=== PATIENT | male | born 1940 | race Caucasian/White ===

== ENCOUNTER → 2016-09-21 | Outpatient (CLI) | payer MEDICARE ==
[~2016-09-21] MED LIST: ACET500C PO; ALEV220C2 PO; AMLO5TAB2 PO; ARIC10TA PO; ARIC5TAB PO; ASPI1TAB PO; ASPI325T PO; ASPI32ECTA PO; ASPI81TA85 PO; ASPI81TAEC PO; ATEN25TA PO; ATOR1TAB18 PO; CLOP75TA2 PO; DULO30CA PO; FENT1DIS14 TD; FENT50PA TD; FERR325T3 PO; FISH100049 PO; FLOM5CAP PO; GLYB1TAB29 PO; HYDR1TAB97 PO; IMOD2TAB14 PO; INSUDET SC; INSUH10VL SC; INSUHUMDS SC; INSULANT SC; INSUNSD SC; ISOS30TA4 PO; ISOS60TA2 PO; LANTINJ4 SC; LOMO2.5T PO; METO25TAB PO; MULTCAP PO; MYRB50TA PO; NADO20TA PO; NEUR300C PO; NEUR600T PO; NITR4TASL SL; NITROGLYCERIN SL; NORC5TAB PO; OMEP20CA3 PO; OXYB10TA PO; PLAV75TA PO; PRIL20CA PO; PROCAER4 PR; PROT1TAB2 PO; RANO5TAB PO; SENO8.6T2 PO; SIMV40TA2 PO; SUCR1TA PO; TAMS0.4C2 PO; TRAZ25TA PO; TRAZ50TA4 PO; TYLE325T5 PO; TYLE500T78 PO; ULTR37.52 PO; VITMTA PO; ZANA4TAB PO; [UNRECOGNIZED DRUG - OTHER] SC
[2016-09-21 17:54] LABS: BASO # 0.1 K/mm3 (0.0-0.2); BASO % 1.3 % (0.0-1.0); EOS # 0.2 K/mm3 (0.0-0.50); EOS % 2.4 % (0.0-3.0); LARGE UNSTAINED CELL # 0.2 K/mm3 (0.0-0.4); LARGE UNSTAINED CELL % 2.5 % (0.0-4.0); LYMPH # 1.4 K/mm3 (1.5-4.5); LYMPH % 15.1 % (24.0-44.0); MEAN CORPUSCULAR HEMOGLOBIN 32.2 pg (27.0-33.0); MEAN CORPUSCULAR HGB CONC 33.5 g/dl (32.0-36.5); MEAN CORPUSCULAR VOLUME 96.3 fl (80.0-96.0); MONO # 0.7 K/mm3 (0.0-0.8); MONO % 8.5 % (0.0-5.0); NEUTROPHILS # 5.7 K/mm3 (1.8-7.7); NEUTROPHILS % 70.3 % (36.0-66.0); PLATELET COUNT, AUTOMATED 148 k/mm3 (150-450); RED CELL DISTRIBUTION WIDTH 14.7 % (11.5-14.5); WHITE BLOOD COUNT 8.1 K/mm3 (4.0-10.0)
== END ==
LOC: M WUC 12:54
PROVIDERS: ATTEND Nurse Practitioner Family
DX: D50.0 Iron deficiency anemia secondary to blood loss (chronic) (principal)

== ENCOUNTER → 2016-10-14 | Outpatient (CLI) | payer MEDICARE ==
[~2016-10-14] MED LIST changes: +HYDR-3713 PO; -HYDR1TAB97 PO; -IMOD2TAB14 PO; +IMOD2TAB16 PO; -PLAV75TA PO; +PLAV75TA38 PO; -PRIL20CA PO; +PRIL20CA9 PO
[2016-10-14 13:11] LABS: BASO % 0.5 % (0.0-1.0); EOS # 0.2 K/mm3 (0.0-0.50); EOS % 2.5 % (0.0-3.0); LARGE UNSTAINED CELL # 0.1 K/mm3 (0.0-0.4); LARGE UNSTAINED CELL % 1.6 % (0.0-4.0); LYMPH # 0.9 K/mm3 (1.5-4.5); LYMPH % 13.9 % (24.0-44.0); MEAN CORPUSCULAR HGB CONC 32.8 g/dl (32.0-36.5); MEAN CORPUSCULAR VOLUME 97.6 fl (80.0-96.0); MONO # 0.4 K/mm3 (0.0-0.8); MONO % 5.3 % (0.0-5.0); NEUTROPHILS # 5.1 K/mm3 (1.8-7.7); NEUTROPHILS % 76.1 % (36.0-66.0); PLATELET COUNT, AUTOMATED 123 k/mm3 (150-450); RED CELL DISTRIBUTION WIDTH 14.1 % (11.5-14.5); WHITE BLOOD COUNT 6.6 K/mm3 (4.0-10.0)
[2016-10-14 13:31] LABS: ALBUMIN 3.3 GM/DL (3.2-5.2); ALBUMIN/GLOBULIN RATIO 0.94 (1.00-1.93); BILIRUBIN,TOTAL 0.6 MG/DL (0.2-1.0); CALCIUM LEVEL 8.7 MG/DL (8.8-10.2); CREATININE FOR GFR 1.68 MG/DL (0.70-1.30); GLOMERULAR FILTRATION RATE 42.6 (>42); POTASSIUM SERUM 4.3 MEQ/L (3.5-5.1); TOTAL PROTEIN 6.8 GM/DL (6.4-8.2)
== END ==
LOC: M WUC 08:50
PROVIDERS: ATTEND Nurse Practitioner Family
DX: D50.0 Iron deficiency anemia secondary to blood loss (chronic) (principal); E11.65 Type 2 diabetes mellitus with hyperglycemia

== ENCOUNTER → 2016-10-21 | Outpatient (CLI) | payer MEDICARE ==
--- NOTE | 2016-10-21 10:03 | REP ---
Abdominal aortic ultrasound: The proximal abdominal aorta measures 2.2 x 2.5 cm. The remainder of the abdominal aorta could not be visualized because of patient body habitus and obscuration by bowel gas. Impression: Suboptimal study. Signed by Edu Cabrera MD 10/21/2016 09:55 A
== END ==
LOC: M RAD 08:47
PROVIDERS: ATTEND Nurse Practitioner Family
DX: Z13.6 Encounter for screening for cardiovascular disorders (principal)

== ENCOUNTER → 2016-11-20 | Outpatient (REF) | payer MEDICARE ==
[2016-11-20 15:12] LABS: CREATININE FOR GFR 1.89 MG/DL (0.70-1.30); GLOMERULAR FILTRATION RATE 37.2 (>42)
== END ==
LOC: M LABDRAW1 13:56
PROVIDERS: ATTEND Physical Medicine & Rehabilitation
DX: M51.26 Other intervertebral disc displacement, lumbar region (principal)

== ENCOUNTER → 2016-11-24 | Outpatient (CLI) | payer MEDICARE ==
[~2016-11-24] MED LIST changes: +NORC1TAB4 PO; -NORC5TAB PO; +NOVOINJ3 SC
[2016-11-24 14:16] LABS: BASO % 0.5 % (0.0-1.0); EOS # 0.3 K/mm3 (0.0-0.50); EOS % 4.1 % (0.0-3.0); LARGE UNSTAINED CELL # 0.1 K/mm3 (0.0-0.4); LARGE UNSTAINED CELL % 1.9 % (0.0-4.0); LYMPH # 0.9 K/mm3 (1.5-4.5); LYMPH % 13.2 % (24.0-44.0); MEAN CORPUSCULAR HEMOGLOBIN 30.8 pg (27.0-33.0); MEAN CORPUSCULAR HGB CONC 31.3 g/dl (32.0-36.5); MEAN CORPUSCULAR VOLUME 98.4 fl (80.0-96.0); MONO # 0.4 K/mm3 (0.0-0.8); NEUTROPHILS # 5.1 K/mm3 (1.8-7.7); NEUTROPHILS % 74.2 % (36.0-66.0); PLATELET COUNT, AUTOMATED 161 k/mm3 (150-450); RED CELL DISTRIBUTION WIDTH 15.4 % (11.5-14.5); WHITE BLOOD COUNT 6.9 K/mm3 (4.0-10.0)
[2016-11-24 14:40] LABS: ALBUMIN 3.4 GM/DL (3.2-5.2); ALBUMIN/GLOBULIN RATIO 0.97 (1.00-1.93); BILIRUBIN,TOTAL 0.8 MG/DL (0.2-1.0); CALCIUM LEVEL 8.6 MG/DL (8.8-10.2); CREATININE FOR GFR 1.8 MG/DL (0.70-1.30); GLOMERULAR FILTRATION RATE 39.4 (>42); POTASSIUM SERUM 4.8 MEQ/L (3.5-5.1); TOTAL PROTEIN 6.9 GM/DL (6.4-8.2)
--- NOTE | 2016-11-24 15:09 | REP ---
CHEST X-RAY PA AND LATERAL: 11/24/2016. Clinical history: Cough and dyspnea. Comparison: 06/24/2016, 04/26/2016, 03/09/2016. Findings: Sternotomy wires and clips from prior CABG are again noted. Some cardiomegaly with left ventricular configuration. Some mild left atrial enlargement is noted. The aorta is mildly calcified at the arch and ectatic without aneurysm. The upper most of the sternal wires are fragmented as before. There are surgical clips in the neck base bilaterally, unchanged. The lung locke are well inflated. The CP angles are sharply defined without evidence of an effusion. There is no lateral pleural thickening or apical scarring. Underlying interstitial fibrotic changes are noted. There is no vascular redistribution or pulmonary edema. Airway intact. Bony thorax without compression deformity. There is no free air under the diaphragm. There are upper abdominal surgical clips. Impression: 1. There is mild cardiomegaly with left atrial ventricular enlargement without pulmonary edema, pleural effusion or acute infiltrate. 2. Mild underlying interstitial fibrotic change. 3. Sternotomy wires with clips from CABG and some mild left atrial enlargement suspected. Stable chest. Signed by Usama Vasquez MD 11/24/2016 05:15 P
== END ==
LOC: M LAB 13:32
PROVIDERS: ATTEND Nurse Practitioner Family
DX: R05 Cough (principal); R06.02 Shortness of breath; I51.7 Cardiomegaly; R00.8 Other abnormalities of heart beat; Z95.1 Presence of aortocoronary bypass graft
CPT/HCPCS: 36415; 71020; 80053; 85025; 94640; G0463

== ENCOUNTER → 2016-12-29 | Outpatient (REF) | payer MEDICARE ==
[~2016-12-29] MED LIST changes: +CIPR-250 PO; +CIPR500T89 PO
== END ==
LOC: M SMT 15:19
PROVIDERS: ATTEND Urology
DX: R31.0 Gross hematuria (principal)
CPT/HCPCS: 81001; 87086; G0463

== ENCOUNTER 2016-12-30 14:06 | Emergency (ER) | payer MEDICARE ==
[~2016-12-30] VITALS: Ht 172.7 cm; Wt 95.3 kg
[~2016-12-30 14:06] MED LIST changes: -CIPR-250 PO; -CIPR500T89 PO
--- NOTE | 2016-12-30 16:03 | REP ---
CHEST, TWO VIEWS: HISTORY: Abdominal pain. COMPARISON: 11/24/2016 There has been no significant change from the prior exam. There is mild cardiomegaly. Note is again made of previous median sternotomy. There are mild fibrotic changes, status quo. No acute patchy parenchymal opacities or pleural effusions have developed. The pleural angles are sharp. The osseous structures are stable and intact. Multiple fractured sternotomy wires noted, status quo. IMPRESSION: Stable appearing chronic changes without plain radiographic evidence of acute cardiopulmonary disease. Signed by Tony Ambrosio DO 12/30/2016 04:06 P
[2016-12-30 16:05] LABS: BASO % 0.6 % (0.0-1.0); EOS # 0.2 K/mm3 (0.0-0.50); LARGE UNSTAINED CELL # 0.1 K/mm3 (0.0-0.4); LARGE UNSTAINED CELL % 1.8 % (0.0-4.0); LYMPH # 0.9 K/mm3 (1.5-4.5); LYMPH % 14.6 % (24.0-44.0); MEAN CORPUSCULAR HGB CONC 31.9 g/dl (32.0-36.5); MONO # 0.4 K/mm3 (0.0-0.8); MONO % 6.6 % (0.0-5.0); NEUTROPHILS # 4.1 K/mm3 (1.8-7.7); NEUTROPHILS % 73.4 % (36.0-66.0); PLATELET COUNT, AUTOMATED 140 k/mm3 (150-450); RED CELL DISTRIBUTION WIDTH 15.3 % (11.5-14.5); WHITE BLOOD COUNT 5.5 K/mm3 (4.0-10.0)
[2016-12-30 16:31] LABS: ALBUMIN 3.1 GM/DL (3.2-5.2); ALBUMIN/GLOBULIN RATIO 0.84 (1.00-1.93); ALKALINE PHOSPHATASE 101 U/L (45-117); ALT/SGPT 41 U/L (12-78); ANION GAP 9 MEQ/L (8-16); AST/SGOT 29 U/L (15-37); BILIRUBIN,DIRECT 0.2 MG/DL (0.0-0.2); BILIRUBIN,TOTAL 0.6 MG/DL (0.2-1.0); BLOOD UREA NITROGEN 25 MG/DL (7-18); CALCIUM LEVEL 8.5 MG/DL (8.8-10.2); CARBON DIOXIDE LEVEL 25 MEQ/L (21-32); CHLORIDE LEVEL 110 MEQ/L (98-107); CREATININE FOR GFR 1.82 MG/DL (0.70-1.30); GLOMERULAR FILTRATION RATE 38.9 (>42); GLUCOSE, FASTING 90 MG/DL (83-110); POTASSIUM SERUM 4.9 MEQ/L (3.5-5.1); SODIUM LEVEL 144 MEQ/L (136-145); TOTAL PROTEIN 6.8 GM/DL (6.4-8.2)
[2016-12-30] MEDS ORDERED: CIPR500T89 PO (19:20)
[2016-12-30] MEDS ORDERED: CIPR-250 PO (19:23)
[2016-12-30 19:39] VITALS: BP 124/59
--- NOTE | 2016-12-31 08:39 | ECGEPIP ---
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
== END 2016-12-30 19:41 | disposition home or self-care (01) ==
LOC: EDBD 14:06 → M ED 15:11
DX: D64.9 Anemia, unspecified (principal); E11.65 Type 2 diabetes mellitus with hyperglycemia; N39.0 Urinary tract infection, site not specified; I25.10 Atherosclerotic heart disease of native coronary artery without angina pectoris; I50.9 Heart failure, unspecified; I12.9 Hypertensive chronic kidney disease with stage 1 through stage 4 chronic kidney disease, or unspecified chronic kidney disease; E11.29 Type 2 diabetes mellitus with other diabetic kidney complication; N18.3 Chronic kidney disease, stage 3 (moderate); I85.00 Esophageal varices without bleeding; G47.30 Sleep apnea, unspecified; Z85.46 Personal history of malignant neoplasm of prostate; Z95.5 Presence of coronary angioplasty implant and graft; Z79.82 Long term (current) use of aspirin; Z79.899 Other long term (current) drug therapy; Z79.4 Long term (current) use of insulin

== ENCOUNTER → 2017-01-08 | Outpatient (CLI) | payer MEDICARE ==
[~2017-01-08] VITALS: Ht 172.7 cm; Wt 92.1 kg
[~2017-01-08] MED LIST changes: +CIPR-250 PO; +CIPR500T89 PO; +LIDOCAINE 2% INJ 100 MG/5 ML SDV (FOR ANES.) As Ordered ONE; +NS 1,000 ML IV SCH; +PROPOFOL 200 MG/20 ML VIAL As Ordered ONE; +fentaNYL 100 MCG/2 ML INJECTION (J3010) As Ordered ONE
--- NOTE | 2017-01-08 08:24 | ROOR ---
Patient Name: Delfino Leger Procedure Date: 01/08/2017 7:59 AM Date of : 1940 Age: 77 Room: [facility] Gender: Male Note Status: Finalized Procedure: Upper GI endoscopy Indications: Iron deficiency anemia secondary to chronic blood loss, For therapy of portal hypertensive gastropathy Providers: Hugh ZAMORA MD Referring MD: RAMBO RAMIREZ MD Requesting Provider: Medicines: Monitored Anesthesia Care Complications: No immediate complications. Procedure: Pre-Anesthesia Assessment: - The heart rate, respiratory rate, oxygen saturations, blood pressure, adequacy of pulmonary ventilation, and response to care were monitored throughout the procedure. The Endoscope was introduced through the mouth, and advanced to the second part of duodenum. The upper GI endoscopy was accomplished without difficulty. The patient tolerated the procedure well. Findings: Grade I varices were found in the lower third of the esophagus. Small varices-no endoscopic therapy indicated The exam of the esophagus was otherwise normal. Moderate portal hypertensive gastropathy was found in the gastric antrum. Coagulation for bleeding prevention using argon beam at 0.8 liters/minute and 35 rothman was successful. The exam of the stomach was otherwise normal. The examined duodenum was normal. Impression: - Grade I esophageal varices. (Small varices-no endoscopic therapy indicated) - Hemorrhagic, nodular portal hypertensive gastropathy (source for chronic blood loss). Treated with argon beam coagulation. - Normal examined duodenum. - No specimens collected. Recommendation: - Observe patient's clinical course. - Portal hypertensive gastropathy in his case is resistant to therapy. To lower portal pressure a nonselective Betablocker could be reconsidered (previously intolerant). He is probably not a TIPSS candidate based on renal function.--I will review. At this time, will continue to do routine surveillance/therapy with APC. - Repeat upper endoscopy in 1 month for retreatment. Hugh Zamora MD Hugh ZAMORA MD 01/08/2017 8:24:47 AM This report has been signed electronically. Number of Addenda: 0 Note Initiated On: 01/08/2017 7:59 AM Estimated Blood Loss: Estimated blood loss: none.
[2017-01-08 08:40] VITALS: BP 155/59
== END | disposition home or self-care (01) ==
LOC: M OPP 06:48
PROVIDERS: ATTEND Internal Medicine Gastroenterology
DX: D50.0 Iron deficiency anemia secondary to blood loss (chronic) (principal); I85.00 Esophageal varices without bleeding; K76.6 Portal hypertension; K31.89 Other diseases of stomach and duodenum; I25.10 Atherosclerotic heart disease of native coronary artery without angina pectoris; I25.2 Old myocardial infarction; I12.9 Hypertensive chronic kidney disease with stage 1 through stage 4 chronic kidney disease, or unspecified chronic kidney disease; E78.5 Hyperlipidemia, unspecified; E11.9 Type 2 diabetes mellitus without complications; K57.92 Diverticulitis of intestine, part unspecified, without perforation or abscess without bleeding; Z87.19 Personal history of other diseases of the digestive system; K44.9 Diaphragmatic hernia without obstruction or gangrene; K74.60 Unspecified cirrhosis of liver; R12 Heartburn; M48.00 Spinal stenosis, site unspecified; F03.90 Unspecified dementia, unspecified severity, without behavioral disturbance, psychotic disturbance, mood disturbance, and anxiety; G62.9 Polyneuropathy, unspecified; I63.9 Cerebral infarction, unspecified; Z86.73 Personal history of transient ischemic attack (TIA), and cerebral infarction without residual deficits; Z92.3 Personal history of irradiation; G47.30 Sleep apnea, unspecified; N18.9 Chronic kidney disease, unspecified; M51.9 Unspecified thoracic, thoracolumbar and lumbosacral intervertebral disc disorder; R06.02 Shortness of breath; Z85.46 Personal history of malignant neoplasm of prostate; Z87.891 Personal history of nicotine dependence; Z95.5 Presence of coronary angioplasty implant and graft; Z88.8 Allergy status to other drugs, medicaments and biological substances; Z79.82 Long term (current) use of aspirin; Z79.4 Long term (current) use of insulin; Z79.899 Other long term (current) drug therapy
CPT/HCPCS: 43255; 99156; J3010

== ENCOUNTER → 2017-02-10 | Outpatient (REF) | payer MEDICARE ==
[~2017-02-10] MED LIST changes: +ACET-683 PO; -ARIC10TA PO; +ARIC1TAB PO; +ARIC1TAB2 PO; -ARIC5TAB PO; +ASPI325T24 PO; -ASPI32ECTA PO; -ATOR1TAB18 PO; +ATOR80TA59 PO; +CIPR-249 PO; -CIPR500T89 PO; +GABA-283 PO; -LIDOCAINE 2% INJ 100 MG/5 ML SDV (FOR ANES.) As Ordered ONE; -NS 1,000 ML IV SCH; +PLAV1TAB2 PO; -PLAV75TA38 PO; -PROPOFOL 200 MG/20 ML VIAL As Ordered ONE; -SENO8.6T2 PO; +SENO8.6T5 PO; +TOUJ1.2I SC; +TRAZ50TA11 PO; -TRAZ50TA4 PO; -ULTR37.52 PO; +ULTR37.54 PO; -fentaNYL 100 MCG/2 ML INJECTION (J3010) As Ordered ONE
[2017-02-10 16:04] LABS: ALBUMIN 3.2 GM/DL (3.2-5.2); ALBUMIN/GLOBULIN RATIO 0.89 (1.00-1.93); BILIRUBIN,TOTAL 0.6 MG/DL (0.2-1.0); CALCIUM LEVEL 8.2 MG/DL (8.8-10.2); CREATININE FOR GFR 1.91 MG/DL (0.70-1.30); GLOMERULAR FILTRATION RATE 36.7 (>42); POTASSIUM SERUM 4.6 MEQ/L (3.5-5.1); TOTAL PROTEIN 6.8 GM/DL (6.4-8.2)
[2017-02-10 16:08] LABS: BASO % 0.7 % (0.0-1.0); EOS # 0.1 K/mm3 (0.0-0.50); EOS % 2.3 % (0.0-3.0); LARGE UNSTAINED CELL # 0.1 K/mm3 (0.0-0.4); LARGE UNSTAINED CELL % 1.7 % (0.0-4.0); LYMPH # 0.9 K/mm3 (1.5-4.5); LYMPH % 16.4 % (24.0-44.0); MEAN CORPUSCULAR HEMOGLOBIN 30.9 pg (27.0-33.0); MEAN CORPUSCULAR HGB CONC 32.2 g/dl (32.0-36.5); MEAN CORPUSCULAR VOLUME 96.1 fl (80.0-96.0); MONO # 0.4 K/mm3 (0.0-0.8); MONO % 7.7 % (0.0-5.0); NEUTROPHILS # 3.3 K/mm3 (1.8-7.7); NEUTROPHILS % 71.2 % (36.0-66.0); PLATELET COUNT, AUTOMATED 146 k/mm3 (150-450); RED CELL DISTRIBUTION WIDTH 15.7 % (11.5-14.5); WHITE BLOOD COUNT 4.7 K/mm3 (4.0-10.0)
== END ==
LOC: M SFHCPLAZ 14:03
PROVIDERS: ATTEND Nurse Practitioner Family
DX: D50.0 Iron deficiency anemia secondary to blood loss (chronic) (principal); E11.21 Type 2 diabetes mellitus with diabetic nephropathy
CPT/HCPCS: 36415; 80053; 80061; 82043; 83036; 85025; G0463

== ENCOUNTER → 2017-02-11 | Outpatient (CLI) | payer MEDICARE ==
[~2017-02-11] VITALS: Ht 177.8 cm; Wt 97.1 kg
[~2017-02-11] MED LIST changes: -ACET-683 PO; +ACET500T37 PO; +ARIC10TA PO; -ARIC1TAB PO; -ARIC1TAB2 PO; +ARIC5TAB PO; -ASPI325T24 PO; +ASPI32ECTA PO; +ATOR1TAB18 PO; -ATOR80TA59 PO; -CIPR-249 PO; +CIPR500T89 PO; -GABA-283 PO; +LIDOCAINE 2% INJ 100 MG/5 ML SDV (FOR ANES.) As Ordered ONE; +NS 1,000 ML IV SCH; -PLAV1TAB2 PO; +PLAV75TA38 PO; +PROPOFOL 200 MG/20 ML VIAL As Ordered ONE; +SENO8.6T2 PO; -SENO8.6T5 PO; -TOUJ1.2I SC; -TRAZ50TA11 PO; +TRAZ50TA4 PO; +ULTR37.52 PO; -ULTR37.54 PO
--- NOTE | 2017-02-11 07:51 | ROOR ---
Patient Name: Delfino Leger Procedure Date: 02/11/2017 7:37 AM Date of : 1940 Age: 77 Room: [facility] Gender: Male Note Status: Finalized Procedure: Upper GI endoscopy Indications: Therapeutic procedure, For therapy of portal hypertensive gastropathy Providers: Hugh ZAMORA MD Referring MD: RAMBO RAMIREZ MD Requesting Provider: Medicines: Monitored Anesthesia Care Complications: No immediate complications. Procedure: Pre-Anesthesia Assessment: - The heart rate, respiratory rate, oxygen saturations, blood pressure, adequacy of pulmonary ventilation, and response to care were monitored throughout the procedure. The Endoscope was introduced through the mouth, and advanced to the second part of duodenum. The upper GI endoscopy was accomplished without difficulty. The patient tolerated the procedure well. Findings: Grade I varices were found in the lower third of the esophagus. Moderate portal hypertensive gastropathy was found in the gastric body and in the gastric antrum. Coagulation for bleeding prevention using argon beam at 0.8 liters/minute and 35 rothman was successful. The in the duodenum was normal. Impression: - Grade I esophageal varices. (small, require no prophylactic therapy) - Portal hypertensive gastropathy. Treated with argon beam coagulation. - Normal. - No specimens collected. Recommendation: - Observe patient's clinical course. - Repeat upper endoscopy in 2 months for retreatment. Hugh Zamora MD Hugh ZAMORA MD 02/11/2017 7:51:36 AM This report has been signed electronically. Number of Addenda: 0 Note Initiated On: 02/11/2017 7:37 AM Estimated Blood Loss: Estimated blood loss: none.
== END | disposition home or self-care (01) ==
LOC: M OPP 06:47
PROVIDERS: ATTEND Internal Medicine Gastroenterology
DX: K76.6 Portal hypertension (principal); I85.00 Esophageal varices without bleeding; K31.89 Other diseases of stomach and duodenum; K21.9 Gastro-esophageal reflux disease without esophagitis; I25.10 Atherosclerotic heart disease of native coronary artery without angina pectoris; I25.2 Old myocardial infarction; I12.9 Hypertensive chronic kidney disease with stage 1 through stage 4 chronic kidney disease, or unspecified chronic kidney disease; E78.5 Hyperlipidemia, unspecified; E11.9 Type 2 diabetes mellitus without complications; K57.92 Diverticulitis of intestine, part unspecified, without perforation or abscess without bleeding; Z87.19 Personal history of other diseases of the digestive system; K74.60 Unspecified cirrhosis of liver; K44.9 Diaphragmatic hernia without obstruction or gangrene; R12 Heartburn; D64.9 Anemia, unspecified; M48.00 Spinal stenosis, site unspecified; M51.9 Unspecified thoracic, thoracolumbar and lumbosacral intervertebral disc disorder; M25.60 Stiffness of unspecified joint, not elsewhere classified; F03.90 Unspecified dementia, unspecified severity, without behavioral disturbance, psychotic disturbance, mood disturbance, and anxiety; G62.9 Polyneuropathy, unspecified; Z86.73 Personal history of transient ischemic attack (TIA), and cerebral infarction without residual deficits; I63.9 Cerebral infarction, unspecified; Z92.3 Personal history of irradiation; Z92.21 Personal history of antineoplastic chemotherapy; G47.30 Sleep apnea, unspecified; R06.83 Snoring; E66.9 Obesity, unspecified; N18.9 Chronic kidney disease, unspecified; Z85.46 Personal history of malignant neoplasm of prostate; Z95.5 Presence of coronary angioplasty implant and graft; Z95.1 Presence of aortocoronary bypass graft; Z88.8 Allergy status to other drugs, medicaments and biological substances; Z79.82 Long term (current) use of aspirin; Z79.4 Long term (current) use of insulin; Z80.9 Family history of malignant neoplasm, unspecified

== ENCOUNTER → 2017-02-24 | Outpatient (CLI) | payer MEDICARE ==
[~2017-02-24] MED LIST changes: +ACET-683 PO; -ACET500T37 PO; -ARIC10TA PO; +ARIC1TAB PO; +ARIC1TAB2 PO; -ARIC5TAB PO; +ASPI325T24 PO; -ASPI32ECTA PO; -ATOR1TAB18 PO; +ATOR80TA59 PO; +CIPR-249 PO; -CIPR500T89 PO; +GABA-283 PO; -LIDOCAINE 2% INJ 100 MG/5 ML SDV (FOR ANES.) As Ordered ONE; -NS 1,000 ML IV SCH; +PLAV1TAB2 PO; -PLAV75TA38 PO; -PROPOFOL 200 MG/20 ML VIAL As Ordered ONE; -SENO8.6T2 PO; +SENO8.6T5 PO; +TOUJ1.2I SC; +TRAZ50TA11 PO; -TRAZ50TA4 PO; -ULTR37.52 PO; +ULTR37.54 PO
--- NOTE | 2017-02-24 16:10 | REP ---
PA and lateral chest: Comparisons are 12/30/2016 and 12/04/2014. There is chronic mild bilateral interstitial coarsening, unchanged, compatible with chronic lung disease. No acute infiltrates or effusions are identified. There are no masses. Cardiac size is borderline enlarged. There are sternotomy wires. These findings are unchanged. The raghavendra, mediastinum, and bony thorax are unremarkable. There are surgical clips in the soft tissues of the neck bilaterally, unchanged. Impression: No change from prior studies. No acute infiltrates or effusions. Chronic mild interstitial coarsening is again noted compatible with chronic lung disease. Signed by Edu Cabrera MD 02/24/2017 04:02 P
[2017-02-24 19:20] LABS: ALBUMIN 3.6 GM/DL (3.2-5.2); ALBUMIN/GLOBULIN RATIO 0.95 (1.00-1.93); BILIRUBIN,TOTAL 0.7 MG/DL (0.2-1.0); CALCIUM LEVEL 9.3 MG/DL (8.8-10.2); CREATININE FOR GFR 1.78 MG/DL (0.70-1.30); GLOMERULAR FILTRATION RATE 39.8 (>42); TOTAL PROTEIN 7.4 GM/DL (6.4-8.2)
[2017-02-24 19:58] LABS: BASO # 0.1 K/mm3 (0.0-0.2); BASO % 0.7 % (0.0-1.0); EOS # 0.2 K/mm3 (0.0-0.50); EOS % 2.6 % (0.0-3.0); LARGE UNSTAINED CELL # 0.2 K/mm3 (0.0-0.4); LYMPH # 0.8 K/mm3 (1.5-4.5); LYMPH % 7.9 % (24.0-44.0); MEAN CORPUSCULAR HEMOGLOBIN 31.1 pg (27.0-33.0); MEAN CORPUSCULAR HGB CONC 32.3 g/dl (32.0-36.5); MEAN CORPUSCULAR VOLUME 96.5 fl (80.0-96.0); MONO # 0.7 K/mm3 (0.0-0.8); MONO % 6.9 % (0.0-5.0); NEUTROPHILS # 7.7 K/mm3 (1.8-7.7); NEUTROPHILS % 79.9 % (36.0-66.0); PLATELET COUNT, AUTOMATED 164 k/mm3 (150-450); RED CELL DISTRIBUTION WIDTH 15.1 % (11.5-14.5); WHITE BLOOD COUNT 9.7 K/mm3 (4.0-10.0)
== END ==
LOC: M SMT 15:35
PROVIDERS: ATTEND Nurse Practitioner Family
DX: R05 Cough (principal); D64.9 Anemia, unspecified; J98.4 Other disorders of lung
CPT/HCPCS: 36415; 71020; 80053; 85025; G0463

== ENCOUNTER → 2017-04-08 | Outpatient (CLI) | payer MEDICARE ==
[~2017-04-08] VITALS: Ht 177.8 cm; Wt 97.5 kg
[~2017-04-08] MED LIST changes: +LIDOCAINE 2% INJ 100 MG/5 ML SDV (FOR ANES.) As Ordered ONE; +NS 1,000 ML IV ONE; +PROPOFOL 500 MG/50 ML VIAL As Ordered ONE
--- NOTE | 2017-04-08 08:16 | ROOR ---
Patient Name: Delfino Leger Procedure Date: 04/08/2017 7:57 AM Date of : 1940 Age: 77 Room: [facility] Gender: Male Note Status: Finalized Procedure: Upper GI endoscopy Indications: Iron deficiency anemia secondary to chronic blood loss, Iron deficiency anemia, Cirrhosis rule out esophageal varices Providers: Hugh ZAMROA MD Referring MD: RAMBO RAMIREZ MD, Andrés Ring MD Requesting Provider: Medicines: Monitored Anesthesia Care Complications: No immediate complications. Procedure: Pre-Anesthesia Assessment: - The heart rate, respiratory rate, oxygen saturations, blood pressure, adequacy of pulmonary ventilation, and response to care were monitored throughout the procedure. The Endoscope was introduced through the mouth, and advanced to the second part of duodenum. The upper GI endoscopy was accomplished without difficulty. The patient tolerated the procedure well. Findings: Grade I varices were found in the lower third of the esophagus. Small varices-no endoscopic therapy indicated Moderate portal hypertensive gastropathy was found in the gastric body and in the gastric antrum. Coagulation for destruction of remaining portion of lesion using argon plasma at 0.8 liters/minute and 35 rothman was successful. The exam of the stomach was otherwise normal. The examined duodenum was normal. Impression: - Grade I esophageal varices. (Small varices-no endoscopic therapy indicated today) - Portal hypertensive gastropathy. Treated with argon plasma coagulation (APC). - Normal examined duodenum. - No specimens collected. Recommendation: - Observe patient's clinical course. - Repeat upper endoscopy in 2 months for retreatment. - Return to my office in 1 month. uHgh Zamora MD Hugh ZAMORA MD 04/08/2017 8:15:41 AM This report has been signed electronically. Number of Addenda: 0 Note Initiated On: 04/08/2017 7:57 AM Estimated Blood Loss: Estimated blood loss: none.
[2017-04-08 08:35] VITALS: BP 161/68
== END | disposition home or self-care (01) ==
LOC: M OPP 06:44
PROVIDERS: ATTEND Internal Medicine Gastroenterology
DX: D50.0 Iron deficiency anemia secondary to blood loss (chronic) (principal); K74.60 Unspecified cirrhosis of liver; I85.10 Secondary esophageal varices without bleeding; K76.6 Portal hypertension; K31.89 Other diseases of stomach and duodenum; K21.9 Gastro-esophageal reflux disease without esophagitis; I25.10 Atherosclerotic heart disease of native coronary artery without angina pectoris; I25.2 Old myocardial infarction; I12.9 Hypertensive chronic kidney disease with stage 1 through stage 4 chronic kidney disease, or unspecified chronic kidney disease; E78.5 Hyperlipidemia, unspecified; E11.9 Type 2 diabetes mellitus without complications; Z87.19 Personal history of other diseases of the digestive system; K44.9 Diaphragmatic hernia without obstruction or gangrene; R12 Heartburn; M48.00 Spinal stenosis, site unspecified; M25.60 Stiffness of unspecified joint, not elsewhere classified; F03.90 Unspecified dementia, unspecified severity, without behavioral disturbance, psychotic disturbance, mood disturbance, and anxiety; G62.9 Polyneuropathy, unspecified; I63.9 Cerebral infarction, unspecified; Z86.73 Personal history of transient ischemic attack (TIA), and cerebral infarction without residual deficits; G47.30 Sleep apnea, unspecified; R06.83 Snoring; N18.9 Chronic kidney disease, unspecified; Z85.46 Personal history of malignant neoplasm of prostate; Z92.3 Personal history of irradiation; Z95.5 Presence of coronary angioplasty implant and graft; Z95.1 Presence of aortocoronary bypass graft; Z87.891 Personal history of nicotine dependence; Z88.8 Allergy status to other drugs, medicaments and biological substances; Z79.82 Long term (current) use of aspirin; Z79.4 Long term (current) use of insulin; Z79.899 Other long term (current) drug therapy

== ENCOUNTER → 2017-05-27 | Outpatient (CLI) | payer MEDICARE ==
[~2017-05-27] MED LIST changes: -LIDOCAINE 2% INJ 100 MG/5 ML SDV (FOR ANES.) As Ordered ONE; -NS 1,000 ML IV ONE; -PROPOFOL 500 MG/50 ML VIAL As Ordered ONE
[2017-05-27 13:37] LABS: BASO % 0.5 % (0.0-1.0); EOS # 0.1 K/mm3 (0.0-0.50); EOS % 2.8 % (0.0-3.0); LARGE UNSTAINED CELL # 0.1 K/mm3 (0.0-0.4); LARGE UNSTAINED CELL % 2.5 % (0.0-4.0); LYMPH # 0.6 K/mm3 (1.5-4.5); LYMPH % 15.7 % (24.0-44.0); MEAN CORPUSCULAR HGB CONC 32.9 g/dl (32.0-36.5); MEAN CORPUSCULAR VOLUME 94.3 fl (80.0-96.0); MONO # 0.3 K/mm3 (0.0-0.8); MONO % 6.9 % (0.0-5.0); NEUTROPHILS # 2.6 K/mm3 (1.8-7.7); NEUTROPHILS % 71.5 % (36.0-66.0); PLATELET COUNT, AUTOMATED 116 k/mm3 (150-450); RED CELL DISTRIBUTION WIDTH 15.3 % (11.5-14.5); WHITE BLOOD COUNT 3.7 K/mm3 (4.0-10.0)
[2017-05-27 13:40] LABS: ALBUMIN 3.1 GM/DL (3.2-5.2); ALBUMIN/GLOBULIN RATIO 0.91 (1.00-1.93); ALKALINE PHOSPHATASE 86 U/L (45-117); ALT/SGPT 38 U/L (12-78); ANION GAP 10 MEQ/L (8-16); AST/SGOT 25 U/L (15-37); BILIRUBIN,TOTAL 0.6 MG/DL (0.2-1.0); BLOOD UREA NITROGEN 34 MG/DL (7-18); CALCIUM LEVEL 8.3 MG/DL (8.8-10.2); CARBON DIOXIDE LEVEL 24 MEQ/L (21-32); CHLORIDE LEVEL 106 MEQ/L (98-107); CREATININE FOR GFR 2.11 MG/DL (0.70-1.30); GLOMERULAR FILTRATION RATE 32.7 (>42); GLUCOSE, FASTING 270 MG/DL (83-110); POTASSIUM SERUM 4.9 MEQ/L (3.5-5.1); SODIUM LEVEL 140 MEQ/L (136-145); TOTAL PROTEIN 6.5 GM/DL (6.4-8.2)
== END ==
LOC: M WUC 09:01
PROVIDERS: ATTEND Internal Medicine Gastroenterology
DX: K74.60 Unspecified cirrhosis of liver (principal)

== ENCOUNTER → 2017-05-28 | Outpatient (REF) | payer MEDICARE | LOC: M LAB REF 20:24 | PROVIDERS: ATTEND Internal Medicine Gastroenterology | DX: R19.7 Diarrhea, unspecified (principal) ==

== ENCOUNTER → 2017-06-01 | Outpatient (CLI) | payer MEDICARE ==
[~2017-06-01] MED LIST changes: +GASTROGRAFIN SOLUTION 30ML (Q9963) As Ordered ONE; +ISOVUE-370 76% 100ML VIAL (Q9967) As Ordered ONE
--- NOTE | 2017-06-01 13:20 | REP ---
CT abdomen and pelvis without IV but with oral contrast: History: Epigastric pain. Comparison CT study is from January 30, 2016. 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 Fiducial markings are seen in the region of the prostate. The lung bases show mild interstitial fibrosis pattern peripherally. This is actually less prominent than on the January 26, 2016 study. No pleural effusion is evident. Micronodular liver edge is seen with some hypertrophy of the left lobe suggesting cirrhosis. The main portal vein is somewhat enlarged measuring 19 mm. The spleen remains enlarged at 14.8 cm in greatest transverse dimension, although it is decreased in size since the January 30, 2016 study. There are clips in the gallbladder fossa. No focal hepatic or splenic mass lesion is seen. No pancreatic abnormality is observed. No adrenal mass is seen. The kidneys are morphologically intact without evidence of stone or hydronephrosis. Fairly prominent vascular calcification pattern is seen. No large or small bowel lesion is seen in the upper abdomen or pelvis. No obstructive lesion is seen. There are inguinal sutures on the left suggesting previous herniorrhaphy. No abdominal wall defect is seen. Urinary bladder and seminal vesicles are unremarkable. Fiducial markers are seen adjacent to the prostate. Bone window settings show no lytic or sclerotic bony destructive lesion. There are degenerative spondylosis changes in the lumbar spine. Impression: 1. Findings compatible with cirrhosis and mild splenomegaly improved from the prior study. 2. Post cholecystectomy and fiducial marker placement at the prostate. Status post left inguinal herniorrhaphy. 3. No acute abdominal or pelvic abnormality. Signed by Austin Mancia MD 06/01/2017 03:52 P
== END ==
LOC: M RAD 10:46
PROVIDERS: ATTEND Internal Medicine Gastroenterology
DX: R10.13 Epigastric pain (principal); R16.1 Splenomegaly, not elsewhere classified; M43.16 Spondylolisthesis, lumbar region; Z90.49 Acquired absence of other specified parts of digestive tract
CPT/HCPCS: 74176; Q9963

== ENCOUNTER 2017-06-10 06:57 | Outpatient (CLI) | payer MEDICARE ==
[~2017-06-10] VITALS: Ht 174 cm; Wt 97.5 kg
[~2017-06-10 06:57] MED LIST changes: -GASTROGRAFIN SOLUTION 30ML (Q9963) As Ordered ONE; -ISOVUE-370 76% 100ML VIAL (Q9967) As Ordered ONE
[2017-06-10] MEDS ORDERED: NS 1,000 ML IV SCH (07:30)
[2017-06-10] MEDS ORDERED: fentaNYL 100 MCG/2 ML INJECTION (J3010) As Ordered ONE (07:43)
[2017-06-10] MEDS ORDERED: PROPOFOL 200 MG/20 ML VIAL As Ordered ONE (08:11)
[2017-06-10] MEDS ORDERED: LIDOCAINE 2% INJ 100 MG/5 ML SDV (FOR ANES.) As Ordered ONE (08:11)
--- NOTE | 2017-06-10 08:16 | ROOR ---
Patient Name: Delfino Leger Procedure Date: 06/10/2017 7:58 AM Date of : 1940 Age: 77 Room: [facility] Gender: Male Note Status: Finalized Procedure: Upper GI endoscopy Indications: Iron deficiency anemia, Follow-up of esophageal varices, Follow-up of portal hypertensive gastropathy, For therapy of portal hypertensive gastropathy Providers: Hugh ZAMORA MD Referring MD: RAMBO RAMIREZ MD Requesting Provider: Medicines: Monitored Anesthesia Care Complications: No immediate complications. Procedure: Pre-Anesthesia Assessment: - The heart rate, respiratory rate, oxygen saturations, blood pressure, adequacy of pulmonary ventilation, and response to care were monitored throughout the procedure. The Endoscope was introduced through the mouth, and advanced to the second part of duodenum. The upper GI endoscopy was accomplished without difficulty. The patient tolerated the procedure well. Findings: Grade I varices were found in the lower third of the esophagus. They were small in size. Small varices-no endoscopic therapy indicated Mild portal hypertensive gastropathy was found in the gastric body and in the gastric antrum. Coagulation for bleeding prevention using argon beam at 0.8 liters/minute and 35 rothman was successful. The exam was otherwise without abnormality. Impression: - Grade I esophageal varices. (Small varices-no endoscopic therapy indicated) - Portal hypertensive gastropathy (significantly improved appearance from previous endoscopy). Treated with argon beam coagulation. - The examination was otherwise normal. - No specimens collected. Recommendation: - Continue present medications. - Observe patient's clinical course. - Repeat upper endoscopy in 2 months for surveillance. - My office will call you to reschedule the procedure. Hugh Zamora MD Hugh ZAMORA MD 06/10/2017 8:15:18 AM This report has been signed electronically. Number of Addenda: 0 Note Initiated On: 06/10/2017 7:58 AM Estimated Blood Loss: Estimated blood loss: none.
[2017-06-10 08:30] VITALS: BP 135/60
== END 2017-06-10 08:38 | disposition home or self-care (01) ==
LOC: M OPP 06:57
PROVIDERS: ATTEND Internal Medicine Gastroenterology
DX: D50.9 Iron deficiency anemia, unspecified (principal); K76.6 Portal hypertension; I85.00 Esophageal varices without bleeding; K31.89 Other diseases of stomach and duodenum; K21.9 Gastro-esophageal reflux disease without esophagitis; Z95.5 Presence of coronary angioplasty implant and graft; Z95.1 Presence of aortocoronary bypass graft; R07.89 Other chest pain; I25.119 Atherosclerotic heart disease of native coronary artery with unspecified angina pectoris; I25.2 Old myocardial infarction; I12.9 Hypertensive chronic kidney disease with stage 1 through stage 4 chronic kidney disease, or unspecified chronic kidney disease; E78.5 Hyperlipidemia, unspecified; K52.9 Noninfective gastroenteritis and colitis, unspecified; K57.92 Diverticulitis of intestine, part unspecified, without perforation or abscess without bleeding; Z87.19 Personal history of other diseases of the digestive system; K44.9 Diaphragmatic hernia without obstruction or gangrene; R12 Heartburn; M48.00 Spinal stenosis, site unspecified; M51.9 Unspecified thoracic, thoracolumbar and lumbosacral intervertebral disc disorder; E11.40 Type 2 diabetes mellitus with diabetic neuropathy, unspecified; Z91.81 History of falling; M19.90 Unspecified osteoarthritis, unspecified site; M25.60 Stiffness of unspecified joint, not elsewhere classified; F03.90 Unspecified dementia, unspecified severity, without behavioral disturbance, psychotic disturbance, mood disturbance, and anxiety; F32.9 Major depressive disorder, single episode, unspecified; R51 Headache; I63.9 Cerebral infarction, unspecified; Z86.73 Personal history of transient ischemic attack (TIA), and cerebral infarction without residual deficits; G47.30 Sleep apnea, unspecified; R06.83 Snoring; N18.3 Chronic kidney disease, stage 3 (moderate); Z85.46 Personal history of malignant neoplasm of prostate; Z92.3 Personal history of irradiation; Z88.8 Allergy status to other drugs, medicaments and biological substances; Z79.82 Long term (current) use of aspirin; Z79.899 Other long term (current) drug therapy; Z79.4 Long term (current) use of insulin
CPT/HCPCS: 43255; J3010

== ENCOUNTER 2017-08-26 06:54 | Day surgery (SDC) | payer MEDICARE ==
[~2017-08-26] VITALS: Ht 172.7 cm; Wt 93.4 kg
[~2017-08-26 06:54] MED LIST changes: +INSULADS INJ
[2017-08-26] MEDS ORDERED: PROPOFOL 200 MG/20 ML VIAL As Ordered ONE (07:04)
[2017-08-26] MEDS ORDERED: LIDOCAINE 2% INJ 100 MG/5 ML SDV (FOR ANES.) As Ordered ONE (07:05)
[2017-08-26] MEDS ORDERED: NS 1,000 ML IV ONE (07:15)
--- NOTE | 2017-08-26 07:55 | ROOR ---
Patient Name: Delfino Leger Procedure Date: 08/26/2017 7:36 AM Date of : 1940 Age: 77 Room: [facility] Gender: Male Note Status: Finalized Procedure: Upper GI endoscopy Indications: Iron deficiency anemia, Follow-up of esophageal varices Providers: Hugh ZAMORA MD Referring MD: Flavia Horan NP Requesting Provider: Medicines: Monitored Anesthesia Care Complications: No immediate complications. Procedure: Pre-Anesthesia Assessment: - The heart rate, respiratory rate, oxygen saturations, blood pressure, adequacy of pulmonary ventilation, and response to care were monitored throughout the procedure. The Endoscope was introduced through the mouth, and advanced to the second part of duodenum. The upper GI endoscopy was accomplished without difficulty. The patient tolerated the procedure well. Findings: Grade I varices were found in the lower third of the esophagus. Small varices-no endoscopic therapy indicated Mild portal hypertensive gastropathy was found in the gastric antrum. Coagulation for bleeding prevention using argon beam at 0.8 liters/minute and 35 rothman was successful. The examined duodenum was normal. Impression: - Grade I esophageal varices. - Portal hypertensive gastropathy. Treated with argon beam coagulation. - Normal examined duodenum. - No specimens collected. Recommendation: - Repeat upper endoscopy in 3 months for retreatment. - Return to my office in 2 months. Hugh Zamora MD Hugh ZAMORA MD 08/26/2017 7:55:29 AM This report has been signed electronically. Number of Addenda: 0 Note Initiated On: 08/26/2017 7:36 AM Estimated Blood Loss: Estimated blood loss: none.
[2017-08-26 08:15] VITALS: BP 158/72
== END 2017-08-26 08:22 | disposition home or self-care (01) ==
LOC: M OPP 06:54
PROVIDERS: ATTEND Internal Medicine Gastroenterology
DX: D50.9 Iron deficiency anemia, unspecified (principal); K76.6 Portal hypertension; K31.89 Other diseases of stomach and duodenum; I85.00 Esophageal varices without bleeding; K74.60 Unspecified cirrhosis of liver; R00.8 Other abnormalities of heart beat; Z95.1 Presence of aortocoronary bypass graft; Z95.5 Presence of coronary angioplasty implant and graft; R07.9 Chest pain, unspecified; I25.119 Atherosclerotic heart disease of native coronary artery with unspecified angina pectoris; I25.2 Old myocardial infarction; I11.0 Hypertensive heart disease with heart failure; E78.5 Hyperlipidemia, unspecified; K52.9 Noninfective gastroenteritis and colitis, unspecified; K57.32 Diverticulitis of large intestine without perforation or abscess without bleeding; K92.2 Gastrointestinal hemorrhage, unspecified; K44.9 Diaphragmatic hernia without obstruction or gangrene; R12 Heartburn; K21.9 Gastro-esophageal reflux disease without esophagitis; Z91.81 History of falling; M48.00 Spinal stenosis, site unspecified; M51.9 Unspecified thoracic, thoracolumbar and lumbosacral intervertebral disc disorder; E11.40 Type 2 diabetes mellitus with diabetic neuropathy, unspecified; R06.02 Shortness of breath; M19.90 Unspecified osteoarthritis, unspecified site; M25.60 Stiffness of unspecified joint, not elsewhere classified; I63.9 Cerebral infarction, unspecified; Z86.73 Personal history of transient ischemic attack (TIA), and cerebral infarction without residual deficits; Z85.46 Personal history of malignant neoplasm of prostate; Z92.3 Personal history of irradiation; G47.30 Sleep apnea, unspecified; R06.83 Snoring; N40.1 Benign prostatic hyperplasia with lower urinary tract symptoms; Z87.891 Personal history of nicotine dependence; Z88.8 Allergy status to other drugs, medicaments and biological substances; Z79.82 Long term (current) use of aspirin; Z79.4 Long term (current) use of insulin

== ENCOUNTER 2017-10-12 06:50 | Day surgery (SDC) | payer MEDICARE ==
[2017-10-12] MEDS: NS 1,000 ML IV (07:30)
[2017-10-12] MEDS ORDERED: LIDOCAINE 2% INJ 100 MG/5 ML SDV (FOR ANES.) As Ordered (08:01)
[2017-10-12] MEDS ORDERED: PROPOFOL 200 MG/20 ML VIAL As Ordered ×2 (08:01)
[2017-10-12 09:40] LABS: BEDSIDE GLUCOSE 158 MG/DL (83-110)
== END 2017-10-12 09:13 | disposition home or self-care (01) ==
LOC: M OPP 06:50
DX: K55.20 Angiodysplasia of colon without hemorrhage (principal); K64.8 Other hemorrhoids; K62.7 Radiation proctitis; I85.00 Esophageal varices without bleeding; K31.819 Angiodysplasia of stomach and duodenum without bleeding; I11.0 Hypertensive heart disease with heart failure; K21.9 Gastro-esophageal reflux disease without esophagitis; I65.29 Occlusion and stenosis of unspecified carotid artery; E78.5 Hyperlipidemia, unspecified; R07.9 Chest pain, unspecified; K74.60 Unspecified cirrhosis of liver; K57.30 Diverticulosis of large intestine without perforation or abscess without bleeding; K44.9 Diaphragmatic hernia without obstruction or gangrene; I20.9 Angina pectoris, unspecified; G47.33 Obstructive sleep apnea (adult) (pediatric); R29.6 Repeated falls; I50.9 Heart failure, unspecified; Z79.84 Long term (current) use of oral hypoglycemic drugs; Z79.82 Long term (current) use of aspirin; Z79.899 Other long term (current) drug therapy; Z88.8 Allergy status to other drugs, medicaments and biological substances; Z86.59 Personal history of other mental and behavioral disorders; Z98.61 Coronary angioplasty status; Z99.89 Dependence on other enabling machines and devices
CPT/HCPCS: 45334

== ENCOUNTER 2017-11-05 09:22 | Emergency (ER) | payer MEDICARE ==
[2017-11-05 10:10] LABS: BASO % 0.6 % (0.0-1.0); EOS # 0.1 10^3/uL (0.0-0.50); EOS % 2.6 % (0.0-3.0); HEMATOCRIT 26.9 % (42.0-52.0); HEMOGLOBIN 8.5 g/dl (14.0-18.0); IMMATURE GRANULOCYTE % 0.2 % (0-3.0); LYMPH # 0.5 10^3/uL (1.5-4.5); LYMPH % 10.2 % (24.0-44.0); MEAN CORPUSCULAR HEMOGLOBIN 29.7 pg (27.0-33.0); MEAN CORPUSCULAR HGB CONC 31.6 g/dl (32.0-36.5); MEAN CORPUSCULAR VOLUME 94.1 fl (80.0-96.0); MONO # 0.5 10^3/uL (0.0-0.8); MONO % 9.3 % (0.0-5.0); NEUTROPHILS # 3.9 10^3/uL (1.8-7.7); NEUTROPHILS % 77.1 % (36.0-66.0); PLATELET COUNT, AUTOMATED 112 10^3/uL (150-450); RED BLOOD COUNT 2.86 10^6/uL (4.30-6.10); RED CELL DISTRIBUTION WIDTH 15.4 % (11.5-14.5); WHITE BLOOD COUNT 5.1 10^3/uL (4.0-10.0)
[2017-11-05 10:14] LABS: INR 1.03; PROTHROMBIN TIME 13.6 SECONDS (12.4-14.5)
[2017-11-05 10:15] LABS: PARTIAL THROMBOPLASTIN TIME 27.5 SECONDS (26.8-37.9)
[2017-11-05 10:23] LABS: ANION GAP 6 MEQ/L (8-16); BLOOD UREA NITROGEN 26 MG/DL (7-18); CALCIUM LEVEL 8.4 MG/DL (8.8-10.2); CARBON DIOXIDE LEVEL 27 MEQ/L (21-32); CHLORIDE LEVEL 108 MEQ/L (98-107); CPK CREATINE PHOSPHOKINASE 46 U/L (39-308); CREATININE FOR GFR 1.77 MG/DL (0.70-1.30); GLUCOSE, FASTING 330 MG/DL (70-100); POTASSIUM SERUM 4.8 MEQ/L (3.5-5.1); SODIUM LEVEL 141 MEQ/L (136-145); TROPONIN I 0.03 NG/ML (< 0.10)
[2017-11-05 10:29] LABS: CK-MB VALUE MASS 1.4 NG/ML (0.0-3.6); MB/CK RELATIVE INDEX 3.04 (< OR =4); NT-PRO BNP 1008 PG/ML (<450)
[2017-11-05 12:31] LABS: CPK CREATINE PHOSPHOKINASE 45 U/L (39-308); TROPONIN I 0.03 NG/ML (< 0.10)
[2017-11-05 12:32] LABS: CK-MB VALUE MASS 1.2 NG/ML (0.0-3.6); MB/CK RELATIVE INDEX 2.66 (< OR =4)
== END 2017-11-05 14:34 | disposition short-term general hospital (02) ==
LOC: M ED 09:22
DX: I25.10 Atherosclerotic heart disease of native coronary artery without angina pectoris (principal); I12.9 Hypertensive chronic kidney disease with stage 1 through stage 4 chronic kidney disease, or unspecified chronic kidney disease; J96.10 Chronic respiratory failure, unspecified whether with hypoxia or hypercapnia; N18.3 Chronic kidney disease, stage 3 (moderate); E78.5 Hyperlipidemia, unspecified; K74.60 Unspecified cirrhosis of liver; G47.33 Obstructive sleep apnea (adult) (pediatric); M54.9 Dorsalgia, unspecified; G89.29 Other chronic pain; Z79.82 Long term (current) use of aspirin; Z79.4 Long term (current) use of insulin; Z79.899 Other long term (current) drug therapy; Z88.8 Allergy status to other drugs, medicaments and biological substances; Z85.46 Personal history of malignant neoplasm of prostate; Z98.890 Other specified postprocedural states; Z95.5 Presence of coronary angioplasty implant and graft; Z92.3 Personal history of irradiation
CPT/HCPCS: 71045

== ENCOUNTER → 2017-11-05 | Outpatient (REF) | payer MEDICARE ==
[2017-11-05 14:00] LABS: ALPHA FETOPROTEIN TUMOR QUANT < 1.3 NG/ML (<8.1)
== END ==
LOC: M LAB REF 13:10
DX: K74.60 Unspecified cirrhosis of liver (principal)
CPT/HCPCS: 82105

== ENCOUNTER → 2017-11-18 | Outpatient (CLI) | payer MEDICARE ==
[2017-11-18 18:55] LABS: HEMATOCRIT 30.4 % (42.0-52.0); MEAN CORPUSCULAR HEMOGLOBIN 29.3 pg (27.0-33.0); MEAN CORPUSCULAR HGB CONC 29.6 g/dl (32.0-36.5); PLATELET COUNT, AUTOMATED 239 10^3/uL (150-450); RED BLOOD COUNT 3.07 10^6/uL (4.30-6.10); RED CELL DISTRIBUTION WIDTH 17.3 % (11.5-14.5); WHITE BLOOD COUNT 10.8 10^3/uL (4.0-10.0)
[2017-11-18 19:11] LABS: ALBUMIN 3.2 GM/DL (3.2-5.2); ALBUMIN/GLOBULIN RATIO 0.82 (1.00-1.93); ALKALINE PHOSPHATASE 104 U/L (45-117); ALT/SGPT 26 U/L (12-78); AMYLASE 41 U/L (25-115); ANION GAP 10 MEQ/L (8-16); AST/SGOT 21 U/L (7-37); BILIRUBIN,TOTAL 1.2 MG/DL (0.2-1.0); BLOOD UREA NITROGEN 31 MG/DL (7-18); CALCIUM LEVEL 8.4 MG/DL (8.8-10.2); CARBON DIOXIDE LEVEL 23 MEQ/L (21-32); CHLORIDE LEVEL 107 MEQ/L (98-107); CREATININE FOR GFR 1.78 MG/DL (0.70-1.30); GLOMERULAR FILTRATION RATE 39.8 (>42); GLUCOSE, FASTING 378 MG/DL (70-100); LIPASE 126 U/L (73-393); POTASSIUM SERUM 4.9 MEQ/L (3.5-5.1); SODIUM LEVEL 140 MEQ/L (136-145); TOTAL PROTEIN 7.1 GM/DL (6.4-8.2)
== END ==
LOC: M SMT 13:38
DX: I25.10 Atherosclerotic heart disease of native coronary artery without angina pectoris (principal); R10.9 Unspecified abdominal pain
CPT/HCPCS: 82150

== ENCOUNTER 2017-11-30 15:58 | Inpatient (IN) | payer MEDICARE ==
[2017-11-30 16:46] LABS: BASO # 0.1 10^3/uL (0.0-0.2); BASO % 0.8 % (0.0-1.0); EOS # 0.2 10^3/uL (0.0-0.50); EOS % 2.3 % (0.0-3.0); HEMATOCRIT 32.8 % (42.0-52.0); HEMOGLOBIN 10.1 g/dl (14.0-18.0); IMMATURE GRANULOCYTE % 0.3 % (0-3.0); LYMPH # 1.2 10^3/uL (1.5-4.5); LYMPH % 16.4 % (24.0-44.0); MEAN CORPUSCULAR HEMOGLOBIN 29.8 pg (27.0-33.0); MEAN CORPUSCULAR HGB CONC 30.8 g/dl (32.0-36.5); MEAN CORPUSCULAR VOLUME 96.8 fl (80.0-96.0); NEUTROPHILS % 67.2 % (36.0-66.0); PLATELET COUNT, AUTOMATED 165 10^3/uL (150-450); RED BLOOD COUNT 3.39 10^6/uL (4.30-6.10); RED CELL DISTRIBUTION WIDTH 16.9 % (11.5-14.5); WHITE BLOOD COUNT 7.4 10^3/uL (4.0-10.0)
[2017-11-30] MEDS: ASPIRIN 81 MG CHEW TABLET PO (16:48)
[2017-11-30] MEDS: MORPHINE 2 MG/ML 1ML SYRINGE (J2270) IV (16:48)
[2017-11-30] MEDS: NS 1,000 ML IV ×2 (16:48→18:45)
[2017-11-30 16:57] LABS: INR 1.07
[2017-11-30 17:08] LABS: SALICYLATE LEVEL < 1.7 MG/DL (5.0-30.0)
[2017-11-30 17:08] LABS: AMMONIA 61 uMOL/L (<32)
[2017-11-30 17:09] LABS: ALBUMIN 3.2 GM/DL (3.2-5.2); ALBUMIN/GLOBULIN RATIO 0.68 (1.00-1.93); ALKALINE PHOSPHATASE 120 U/L (45-117); ALT/SGPT 52 U/L (12-78); AST/SGOT 37 U/L (7-37); BILIRUBIN,DIRECT 0.3 MG/DL (0.0-0.2); BILIRUBIN,TOTAL 0.8 MG/DL (0.2-1.0); TOTAL PROTEIN 7.9 GM/DL (6.4-8.2)
[2017-11-30 17:12] LABS: ANION GAP 12 MEQ/L (8-16); BLOOD UREA NITROGEN 42 MG/DL (7-18); CALCIUM LEVEL 8.9 MG/DL (8.8-10.2); CARBON DIOXIDE LEVEL 24 MEQ/L (21-32); CHLORIDE LEVEL 102 MEQ/L (98-107); CK-MB VALUE MASS 2.3 NG/ML (0.0-3.6); CPK CREATINE PHOSPHOKINASE 56 U/L (39-308); CREATININE FOR GFR 2.52 MG/DL (0.70-1.30); GLOMERULAR FILTRATION RATE 26.6 (>42); SODIUM LEVEL 138 MEQ/L (136-145); TROPONIN I 0.03 NG/ML (< 0.10)
[2017-11-30 17:13] LABS: ACETAMINOPHEN LEVEL < 2.0 UG/ML (10.0-30.0)
[2017-11-30 17:13] LABS: ETHYL ALCOHOL (ETHANOL) < 0.003 % (0.000-0.010)
[2017-11-30 17:27] LABS: GLUCOSE, FASTING 587 MG/DL (70-100)
[2017-11-30 17:28] LABS: POTASSIUM SERUM 5.4 MEQ/L (3.5-5.1)
[2017-11-30] MEDS: HumuLIN R (REGULAR) INSULIN (NovoLIN R) **100U/ML** PER UNIT IV (18:06)
[2017-11-30 18:45] LABS: AMPHETAMINES LEVEL URINE NEGATIVE (NEGATIVE); BARBITURATES URINE NEGATIVE (NEGATIVE); BENZODIAZEPINES URINE NEGATIVE (NEGATIVE); CANNABINOIDS URINE NEGATIVE (NEGATIVE); COCAINE METABOLITE URINE NEGATIVE (NEGATIVE); METHADONE URINE NEGATIVE (NEGATIVE); OPIATES URINE POSITIVE (NEGATIVE); PHENCYCLIDINE URINE NEGATIVE (NEGATIVE)
[2017-11-30] MEDS ORDERED: DEXTROSE 50% 50 ML SYRINGE IV (19:15)
[2017-11-30] MEDS ORDERED: GLUCOSE 4 GM CHEW TABLET PO (19:15)
[2017-11-30] MEDS ORDERED: ONDANSETRON 4MG/2ML VIAL (J2405) IV (19:15)
[2017-11-30] MEDS ORDERED: GLUCAGON FOR INJ 1 MG VIAL (J1610) SC (19:15)
[2017-11-30 19:41] LABS: VENOUS BASE EXCESS -3.2 (-2.0-2.0); VENOUS HCO3 21.5 MEQ/L (23.0-27.0); VENOUS O2 SATURATION 95.6 % (60.0-80.0); VENOUS PARTIAL PRESSURE CO2 37.3 mmHg (38.0-50.0); VENOUS PARTIAL PRESSURE O2 85.6 mmHg (30.0-50.0); VENOUS PH 7.379 UNITS (7.330-7.430); VENOUS STANDARD HCO3 21.8 MEQ/L; VENOUS TOTAL CO2 22.7 MEQ/L (24.0-28.0)
[2017-11-30 19:46] LABS: BEDSIDE GLUCOSE 364 MG/DL (83-110)
[2017-11-30 20:05] LABS: C REACTIVE PROTEIN QUANTITATIV 1.16 MG/DL (0.00-0.30)
[2017-11-30 20:06] LABS: ESTIMATED AVERAGE GLUCOSE 146 MG/DL (60-110); HEMOGLOBIN A1c 6.7 %
[2017-11-30 20:11] LABS: CK-MB VALUE MASS 2.7 NG/ML (0.0-3.6); CPK CREATINE PHOSPHOKINASE 54 U/L (39-308); LIPASE 214 U/L (73-393); TROPONIN I 0.04 NG/ML (< 0.10)
[2017-11-30 20:15] LABS: LACTIC ACID SEPSIS PROTOCOL 3.6 MMOL/L (0.4-2.0)
[2017-11-30 20:24] LABS: OSMOLALITY URINE 624 MOSM/KG (500-800)
[2017-11-30 20:38] LABS: APPEARANCE, URINE CLEAR (CLEAR); BACTERIA, URINE AUTO NEGATIVE (NEGATIVE); BILIRUBIN, URINE AUTO NEGATIVE (NEGATIVE); BLOOD, URINE BLOOD NEGATIVE (NEGATIVE); COLOR, URINE YELLOW (YELLOW); GLUCOSE, URINE (UA) AUTO 3+ mg/dL (NEGATIVE); KETONE, URINE AUTO TRACE mg/dL (NEGATIVE); LEUKOCYTE ESTERASE, URINE AUTO NEGATIVE (NEGATIVE); NITRITE, URINE AUTO NEGATIVE (NEGATIVE); PROTEIN, URINE AUTO NEGATIVE (NEGATIVE); RBC, URINE AUTO 2 /HPF (0-3); SPECIFIC GRAVITY URINE AUTO 1.023 (1.002-1.035); SQUAMOUS EPITHELIAL CELL UR AU 0 /HPF (0-6); WBC, URINE AUTO 1 /HPF (0-3)
[2017-11-30] MEDS: LACTULOSE 20 GM/30 ML SYRUP UD PO ×2 (20:55→21:00)
[2017-11-30] MEDS: ATORVASTATIN 20 MG TAB PO (20:56)
[2017-11-30] MEDS: PANTOPRAZOLE 40MG INJ (PROTONIX) (C9113) IV (20:56)
[2017-11-30] MEDS: HEPARIN SOD (PORCINE) 5000 UNITS/ML VIAL SC (20:56)
[2017-11-30] MEDS: SENOKOT S TAB PO (20:57)
[2017-11-30] MEDS: FERROUS SULFATE 325MG TAB PO (20:57)
[2017-11-30] MEDS: LEVEMIR (INSULIN DETEMIR) 1 UNITS/0.01ML SC (21:00)
[2017-11-30 21:06] LABS: CHLORIDE,RANDOM URINE 27 MEQ/L; POTASSIUM RANDOM URINE 39.5 MEQ/L; SODIUM,RANDOM URINE 40 MEQ/L; TOTAL PROTEIN,RANDOM URINE 26.6 MG/DL (0.0-12.0)
[2017-11-30] MEDS: HumaLOG INSULIN (NovoLOG) PER UNIT SC ×2 (21:07→22:00)
[2017-11-30 21:10] LABS: BEDSIDE GLUCOSE 379 MG/DL (83-110)
[2017-11-30 22:26] LABS: BEDSIDE GLUCOSE 342 MG/DL (83-110)
[2017-11-30 23:26] LABS: BEDSIDE GLUCOSE 303 MG/DL (83-110)
[2017-12-01 00:09] LABS: ANION GAP 7 MEQ/L (8-16); BLOOD UREA NITROGEN 36 MG/DL (7-18); CALCIUM LEVEL 8.2 MG/DL (8.8-10.2); CARBON DIOXIDE LEVEL 23 MEQ/L (21-32); CHLORIDE LEVEL 112 MEQ/L (98-107); CK-MB VALUE MASS 2.3 NG/ML (0.0-3.6); CPK CREATINE PHOSPHOKINASE 50 U/L (39-308); CREATININE FOR GFR 1.96 MG/DL (0.70-1.30); GLOMERULAR FILTRATION RATE 35.6 (>42); GLUCOSE, FASTING 268 MG/DL (70-100); SODIUM LEVEL 142 MEQ/L (136-145); TROPONIN I 0.04 NG/ML (< 0.10)
[2017-12-01] MEDS: NS 1,000 ML IV (00:43)
[2017-12-01 01:12] LABS: BEDSIDE GLUCOSE 219 MG/DL (83-110)
[2017-12-01 01:12] LABS: BEDSIDE GLUCOSE 280 MG/DL (83-110)
[2017-12-01 02:11] LABS: BEDSIDE GLUCOSE 203 MG/DL (83-110)
[2017-12-01 03:10] LABS: BEDSIDE GLUCOSE 165 MG/DL (83-110)
[2017-12-01] MEDS: HumaLOG INSULIN (NovoLOG) PER UNIT SC ×4 (04:00→21:00)
[2017-12-01 04:14] LABS: BEDSIDE GLUCOSE 139 MG/DL (83-110)
[2017-12-01 05:04] LABS: HEMATOCRIT 27.1 % (42.0-52.0); HEMOGLOBIN 8.4 g/dl (14.0-18.0); MEAN CORPUSCULAR HEMOGLOBIN 29.7 pg (27.0-33.0); MEAN CORPUSCULAR VOLUME 95.8 fl (80.0-96.0); PLATELET COUNT, AUTOMATED 112 10^3/uL (150-450); RED BLOOD COUNT 2.83 10^6/uL (4.30-6.10); RED CELL DISTRIBUTION WIDTH 16.5 % (11.5-14.5); WHITE BLOOD COUNT 4.7 10^3/uL (4.0-10.0)
[2017-12-01 05:19] LABS: AMMONIA 56 uMOL/L (<32)
[2017-12-01 05:20] LABS: ALBUMIN 2.7 GM/DL (3.2-5.2); ALBUMIN/GLOBULIN RATIO 0.73 (1.00-1.93); ALKALINE PHOSPHATASE 96 U/L (45-117); ALT/SGPT 43 U/L (12-78); ANION GAP 10 MEQ/L (8-16); AST/SGOT 35 U/L (7-37); BILIRUBIN,TOTAL 0.5 MG/DL (0.2-1.0); BLOOD UREA NITROGEN 33 MG/DL (7-18); CALCIUM LEVEL 8.1 MG/DL (8.8-10.2); CARBON DIOXIDE LEVEL 22 MEQ/L (21-32); CHLORIDE LEVEL 116 MEQ/L (98-107); CREATININE FOR GFR 1.73 MG/DL (0.70-1.30); GLOMERULAR FILTRATION RATE 41.1 (>42); GLUCOSE, FASTING 120 MG/DL (70-100); LIPASE 174 U/L (73-393); POTASSIUM SERUM 4.1 MEQ/L (3.5-5.1); SODIUM LEVEL 148 MEQ/L (136-145); TOTAL PROTEIN 6.4 GM/DL (6.4-8.2)
[2017-12-01 06:15] LABS: BEDSIDE GLUCOSE 140 MG/DL (83-110)
[2017-12-01] MEDS: HEPARIN SOD (PORCINE) 5000 UNITS/ML VIAL SC ×2 (09:30→20:57)
[2017-12-01] MEDS: LACTULOSE 20 GM/30 ML SYRUP UD PO ×2 (09:30→20:55)
[2017-12-01] MEDS: ASPIRIN 81 MG ENTERIC TAB PO (09:31)
[2017-12-01] MEDS: FERROUS SULFATE 325MG TAB PO ×2 (09:31→20:56)
[2017-12-01] MEDS: CLOPIDOGREL 75 MG TAB PO (09:31)
[2017-12-01] MEDS: LEVEMIR (INSULIN DETEMIR) 1 UNITS/0.01ML SC ×2 (09:31→21:09)
[2017-12-01] MEDS: PROPRANOLOL 60 MG LA CAP PO (09:32)
[2017-12-01] MEDS: MULTIVITAMINS/MINERALS THERAP 1 TAB PO (09:32)
[2017-12-01] MEDS: SENOKOT S TAB PO ×2 (09:32→20:56)
[2017-12-01] MEDS: ISOSORBIDE MON. (IMDUR) 60 MG XR TAB PO (09:32)
[2017-12-01] MEDS: DULoxetine 30 MG CAP (CYMBALTA) PO (09:32)
[2017-12-01 13:31] LABS: BEDSIDE GLUCOSE 291 MG/DL (83-110)
[2017-12-01 17:25] LABS: BEDSIDE GLUCOSE 260 MG/DL (83-110)
[2017-12-01] MEDS: PANTOPRAZOLE 40MG INJ (PROTONIX) (C9113) IV (20:55)
[2017-12-01] MEDS: ATORVASTATIN 20 MG TAB PO (20:56)
[2017-12-01 21:02] LABS: BEDSIDE GLUCOSE 222 MG/DL (83-110)
[2017-12-02 06:29] LABS: HEMOGLOBIN 8.5 g/dl (14.0-18.0); MEAN CORPUSCULAR HEMOGLOBIN 29.5 pg (27.0-33.0); MEAN CORPUSCULAR HGB CONC 31.5 g/dl (32.0-36.5); MEAN CORPUSCULAR VOLUME 93.8 fl (80.0-96.0); PLATELET COUNT, AUTOMATED 116 10^3/uL (150-450); RED BLOOD COUNT 2.88 10^6/uL (4.30-6.10); WHITE BLOOD COUNT 5.1 10^3/uL (4.0-10.0)
[2017-12-02 06:57] LABS: ALBUMIN 2.7 GM/DL (3.2-5.2); ALBUMIN/GLOBULIN RATIO 0.68 (1.00-1.93); ALKALINE PHOSPHATASE 103 U/L (45-117); ALT/SGPT 38 U/L (12-78); ANION GAP 8 MEQ/L (8-16); AST/SGOT 32 U/L (7-37); BILIRUBIN,TOTAL 0.6 MG/DL (0.2-1.0); BLOOD UREA NITROGEN 25 MG/DL (7-18); CALCIUM LEVEL 8.4 MG/DL (8.8-10.2); CARBON DIOXIDE LEVEL 23 MEQ/L (21-32); CHLORIDE LEVEL 111 MEQ/L (98-107); CREATININE FOR GFR 1.39 MG/DL (0.70-1.30); GLOMERULAR FILTRATION RATE 52.9 (>42); GLUCOSE, FASTING 149 MG/DL (70-100); MAGNESIUM LEVEL 1.7 MG/DL (1.8-2.4); POTASSIUM SERUM 4.3 MEQ/L (3.5-5.1); SODIUM LEVEL 142 MEQ/L (136-145); TOTAL PROTEIN 6.7 GM/DL (6.4-8.2)
[2017-12-02] MEDS: DULoxetine 30 MG CAP (CYMBALTA) PO (08:14)
[2017-12-02] MEDS: ISOSORBIDE MON. (IMDUR) 60 MG XR TAB PO (08:14)
[2017-12-02] MEDS: SENOKOT S TAB PO (08:14)
[2017-12-02] MEDS: CLOPIDOGREL 75 MG TAB PO (08:15)
[2017-12-02] MEDS: LACTULOSE 20 GM/30 ML SYRUP UD PO (08:15)
[2017-12-02] MEDS: MULTIVITAMINS/MINERALS THERAP 1 TAB PO (08:15)
[2017-12-02] MEDS: ASPIRIN 81 MG ENTERIC TAB PO (08:15)
[2017-12-02] MEDS: HEPARIN SOD (PORCINE) 5000 UNITS/ML VIAL SC (08:15)
[2017-12-02] MEDS: FERROUS SULFATE 325MG TAB PO (08:15)
[2017-12-02] MEDS: HumaLOG INSULIN (NovoLOG) PER UNIT SC (08:16)
[2017-12-02] MEDS: LEVEMIR (INSULIN DETEMIR) 1 UNITS/0.01ML SC (08:16)
[2017-12-02] MEDS: PROPRANOLOL 60 MG LA CAP PO (08:21)
== END 2017-12-02 11:30 | disposition home or self-care (01) | DRG 638 ==
LOC: M ICU 12-01 00:03 → M ED 15:58 → M MSPAV 12-01 12:55 → M ED INP 19:01
DX: E11.65 Type 2 diabetes mellitus with hyperglycemia (principal); N17.9 Acute kidney failure, unspecified; K72.10 Chronic hepatic failure without coma; K74.60 Unspecified cirrhosis of liver; I25.10 Atherosclerotic heart disease of native coronary artery without angina pectoris; N18.3 Chronic kidney disease, stage 3 (moderate); E87.5 Hyperkalemia; E78.5 Hyperlipidemia, unspecified; G47.33 Obstructive sleep apnea (adult) (pediatric); Z99.89 Dependence on other enabling machines and devices; Z92.3 Personal history of irradiation; Z85.46 Personal history of malignant neoplasm of prostate; Z79.82 Long term (current) use of aspirin; Z79.02 Long term (current) use of antithrombotics/antiplatelets; Z79.4 Long term (current) use of insulin; Z79.899 Other long term (current) drug therapy; Z95.9 Presence of cardiac and vascular implant and graft, unspecified

== ENCOUNTER → 2017-12-23 | Outpatient (CLI) | payer MEDICARE ==
[2017-12-23 13:05] LABS: APPEARANCE, URINE HAZY (CLEAR); BACTERIA, URINE AUTO NEGATIVE (NEGATIVE); BILIRUBIN, URINE AUTO NEGATIVE (NEGATIVE); BLOOD, URINE BLOOD NEGATIVE (NEGATIVE); COLOR, URINE YELLOW (YELLOW); GLUCOSE, URINE (UA) AUTO 2+ mg/dL (NEGATIVE); KETONE, URINE AUTO NEGATIVE (NEGATIVE); LEUKOCYTE ESTERASE, URINE AUTO NEGATIVE (NEGATIVE); NITRITE, URINE AUTO NEGATIVE (NEGATIVE); PROTEIN, URINE AUTO NEGATIVE (NEGATIVE); RBC, URINE AUTO 2 /HPF (0-3); SPECIFIC GRAVITY URINE AUTO 1.019 (1.002-1.035); SQUAMOUS EPITHELIAL CELL UR AU 0 /HPF (0-6); UROBILINOGEN, URINE AUTO 0.2 mg/dL (0.0-2.0); WBC, URINE AUTO 1 /HPF (0-3)
[2017-12-23 13:39] LABS: PROSTATIC SPECIFIC AG MONITOR 0.01 NG/ML (< 4.0)
== END ==
LOC: M WUC 10:22
DX: C61 Malignant neoplasm of prostate (principal); R31.0 Gross hematuria
CPT/HCPCS: 84153

== ENCOUNTER → 2018-01-17 | Outpatient (CLI) | payer MEDICARE ==
[2018-01-17 17:03] LABS: ALBUMIN 3.1 GM/DL (3.2-5.2); ALBUMIN/GLOBULIN RATIO 0.78 (1.00-1.93); ALKALINE PHOSPHATASE 106 U/L (45-117); ALT/SGPT 35 U/L (12-78); ANION GAP 6 MEQ/L (8-16); AST/SGOT 33 U/L (7-37); BILIRUBIN,TOTAL 0.6 MG/DL (0.2-1.0); BLOOD UREA NITROGEN 36 MG/DL (7-18); CALCIUM LEVEL 8.5 MG/DL (8.8-10.2); CARBON DIOXIDE LEVEL 25 MEQ/L (21-32); CHLORIDE LEVEL 113 MEQ/L (98-107); CREATININE FOR GFR 1.78 MG/DL (0.70-1.30); GLOMERULAR FILTRATION RATE 39.7 (>42); GLUCOSE, FASTING 248 MG/DL (70-100); POTASSIUM SERUM 4.6 MEQ/L (3.5-5.1); SODIUM LEVEL 144 MEQ/L (136-145); TOTAL PROTEIN 7.1 GM/DL (6.4-8.2)
[2018-01-17 17:10] LABS: INR 1.05; PROTHROMBIN TIME 13.8 SECONDS (12.4-14.5)
[2018-01-17 17:35] LABS: BASO % 0.6 % (0.0-1.0); EOS # 0.2 10^3/uL (0.0-0.50); EOS % 2.7 % (0.0-3.0); HEMATOCRIT 30.4 % (42.0-52.0); HEMOGLOBIN 9.6 g/dl (13.5-17.5); IMMATURE GRANULOCYTE % 0.4 % (0-3.0); LYMPH # 1.1 10^3/uL (1.5-4.5); LYMPH % 16.7 % (24.0-44.0); MEAN CORPUSCULAR HEMOGLOBIN 30.1 pg (27.0-33.0); MEAN CORPUSCULAR HGB CONC 31.6 g/dl (32.0-36.5); MEAN CORPUSCULAR VOLUME 95.3 fl (80.0-96.0); MONO # 0.6 10^3/uL (0.0-0.8); MONO % 8.8 % (0.0-5.0); NEUTROPHILS # 4.7 10^3/uL (1.8-7.7); NEUTROPHILS % 70.8 % (36.0-66.0); PLATELET COUNT, AUTOMATED 150 10^3/uL (150-450); RED BLOOD COUNT 3.19 10^6/uL (4.30-6.10); RED CELL DISTRIBUTION WIDTH 15.6 % (11.5-14.5); WHITE BLOOD COUNT 6.7 10^3/uL (4.0-10.0)
== END ==
LOC: M WUC 11:55
DX: K74.60 Unspecified cirrhosis of liver (principal)
CPT/HCPCS: 80053

== ENCOUNTER → 2018-02-09 | Outpatient (CLI) | payer MEDICARE ==
[2018-02-09 11:35] LABS: BASO % 0.5 % (0.0-1.0); EOS # 0.2 10^3/uL (0.0-0.50); EOS % 3.2 % (0.0-3.0); HEMATOCRIT 30.1 % (42.0-52.0); HEMOGLOBIN 9.3 g/dl (13.5-17.5); IMMATURE GRANULOCYTE % 0.3 % (0-3.0); LYMPH % 15.2 % (24.0-44.0); MEAN CORPUSCULAR HEMOGLOBIN 29.3 pg (27.0-33.0); MEAN CORPUSCULAR HGB CONC 30.9 g/dl (32.0-36.5); MONO # 0.6 10^3/uL (0.0-0.8); NEUTROPHILS # 4.5 10^3/uL (1.8-7.7); NEUTROPHILS % 70.8 % (36.0-66.0); PLATELET COUNT, AUTOMATED 150 10^3/uL (150-450); RED BLOOD COUNT 3.17 10^6/uL (4.30-6.10); RED CELL DISTRIBUTION WIDTH 16.4 % (11.5-14.5); WHITE BLOOD COUNT 6.3 10^3/uL (4.0-10.0)
[2018-02-09 12:16] LABS: ALBUMIN 3.2 GM/DL (3.2-5.2); ALKALINE PHOSPHATASE 88 U/L (45-117); ALT/SGPT 31 U/L (12-78); ANION GAP 6 MEQ/L (8-16); AST/SGOT 32 U/L (7-37); BILIRUBIN,TOTAL 0.7 MG/DL (0.2-1.0); BLOOD UREA NITROGEN 35 MG/DL (7-18); CALCIUM LEVEL 8.5 MG/DL (8.8-10.2); CARBON DIOXIDE LEVEL 25 MEQ/L (21-32); CHLORIDE LEVEL 111 MEQ/L (98-107); CREATININE FOR GFR 1.79 MG/DL (0.70-1.30); GLOMERULAR FILTRATION RATE 39.4 (>42); GLUCOSE, FASTING 171 MG/DL (70-100); POTASSIUM SERUM 4.6 MEQ/L (3.5-5.1); SODIUM LEVEL 142 MEQ/L (136-145); TOTAL PROTEIN 7.2 GM/DL (6.4-8.2)
== END ==
LOC: M LAB 10:55
DX: K74.60 Unspecified cirrhosis of liver (principal)
CPT/HCPCS: 80053

== ENCOUNTER → 2018-03-22 | Outpatient (CLI) | payer MEDICARE ==
[2018-03-23 08:16] LABS: FRUCTOSAMINE 287 umol/L (0-285)
== END ==
LOC: M WUC 08:32
DX: E11.21 Type 2 diabetes mellitus with diabetic nephropathy (principal)
CPT/HCPCS: 82985

== ENCOUNTER → 2018-04-12 | Outpatient (CLI) | payer MEDICARE ==
[2018-04-12 08:03] LABS: BASO % 0.6 % (0.0-1.0); EOS # 0.2 10^3/uL (0.0-0.50); EOS % 3.3 % (0.0-3.0); HEMATOCRIT 31.7 % (42.0-52.0); HEMOGLOBIN 10.2 g/dl (13.5-17.5); IMMATURE GRANULOCYTE % 0.3 % (0-3.0); LYMPH # 0.7 10^3/uL (1.5-4.5); LYMPH % 11.2 % (24.0-44.0); MEAN CORPUSCULAR HEMOGLOBIN 29.9 pg (27.0-33.0); MEAN CORPUSCULAR HGB CONC 32.2 g/dl (32.0-36.5); MONO # 0.6 10^3/uL (0.0-0.8); MONO % 8.7 % (0.0-5.0); NEUTROPHILS # 4.9 10^3/uL (1.8-7.7); NEUTROPHILS % 75.9 % (36.0-66.0); PLATELET COUNT, AUTOMATED 130 10^3/uL (150-450); RED BLOOD COUNT 3.41 10^6/uL (4.30-6.10); WHITE BLOOD COUNT 6.4 10^3/uL (4.0-10.0)
[2018-04-12 08:28] LABS: ALBUMIN 3.3 GM/DL (3.2-5.2); ALBUMIN/GLOBULIN RATIO 0.83 (1.00-1.93); ALKALINE PHOSPHATASE 102 U/L (45-117); ALT/SGPT 41 U/L (12-78); ANION GAP 8 MEQ/L (8-16); AST/SGOT 36 U/L (7-37); BILIRUBIN,TOTAL 0.7 MG/DL (0.2-1.0); BLOOD UREA NITROGEN 32 MG/DL (7-18); CALCIUM LEVEL 8.7 MG/DL (8.8-10.2); CARBON DIOXIDE LEVEL 27 MEQ/L (21-32); CHLORIDE LEVEL 111 MEQ/L (98-107); CREATININE FOR GFR 1.77 MG/DL (0.70-1.30); GLOMERULAR FILTRATION RATE 39.9 (>42); GLUCOSE, FASTING 66 MG/DL (70-100); POTASSIUM SERUM 4.8 MEQ/L (3.5-5.1); SODIUM LEVEL 146 MEQ/L (136-145); TOTAL PROTEIN 7.3 GM/DL (6.4-8.2)
[2018-04-12 09:14] LABS: ALPHA FETOPROTEIN TUMOR QUANT < 1.3 NG/ML (<8.1)
== END ==
LOC: M RAD 07:46
DX: K74.60 Unspecified cirrhosis of liver (principal); Z90.49 Acquired absence of other specified parts of digestive tract
CPT/HCPCS: 76705

== ENCOUNTER → 2018-04-13 | Outpatient (REF) | payer MEDICARE | LOC: M LAB REF 11:35 | DX: K74.60 Unspecified cirrhosis of liver (principal) | CPT/HCPCS: 87493 ==

== ENCOUNTER 2018-04-19 14:38 | Inpatient (IN) | payer MEDICARE ==
[2018-04-19 15:25] LABS: BASO % 0.5 % (0.0-1.0); EOS # 0.2 10^3/uL (0.0-0.50); EOS % 2.5 % (0.0-3.0); HEMATOCRIT 30.7 % (42.0-52.0); HEMOGLOBIN 9.9 g/dl (13.5-17.5); IMMATURE GRANULOCYTE % 0.5 % (0-3.0); LYMPH # 0.8 10^3/uL (1.5-4.5); LYMPH % 13.9 % (24.0-44.0); MEAN CORPUSCULAR HEMOGLOBIN 30.3 pg (27.0-33.0); MEAN CORPUSCULAR HGB CONC 32.2 g/dl (32.0-36.5); MEAN CORPUSCULAR VOLUME 93.9 fl (80.0-96.0); MONO # 0.4 10^3/uL (0.0-0.8); MONO % 7.4 % (0.0-5.0); NEUTROPHILS # 4.4 10^3/uL (1.8-7.7); NEUTROPHILS % 75.2 % (36.0-66.0); PLATELET COUNT, AUTOMATED 120 10^3/uL (150-450); RED BLOOD COUNT 3.27 10^6/uL (4.30-6.10); WHITE BLOOD COUNT 5.9 10^3/uL (4.0-10.0)
[2018-04-19 15:41] LABS: BEDSIDE GLUCOSE 166 MG/DL (83-110)
[2018-04-19 15:50] LABS: AMMONIA 48 uMOL/L (<32)
[2018-04-19 16:03] LABS: ALBUMIN/GLOBULIN RATIO 0.79 (1.00-1.93); ALKALINE PHOSPHATASE 97 U/L (45-117); ALT/SGPT 46 U/L (12-78); ANION GAP 9 MEQ/L (8-16); AST/SGOT 41 U/L (7-37); BILIRUBIN,DIRECT 0.2 MG/DL (0.0-0.2); BILIRUBIN,TOTAL 0.7 MG/DL (0.2-1.0); BLOOD UREA NITROGEN 25 MG/DL (7-18); CALCIUM LEVEL 8.5 MG/DL (8.8-10.2); CARBON DIOXIDE LEVEL 24 MEQ/L (21-32); CHLORIDE LEVEL 111 MEQ/L (98-107); CPK CREATINE PHOSPHOKINASE 42 U/L (39-308); CREATININE FOR GFR 1.65 MG/DL (0.70-1.30); ETHYL ALCOHOL (ETHANOL) 0.003 % (0.000-0.010); GLOMERULAR FILTRATION RATE 43.3 (>42); GLUCOSE, FASTING 182 MG/DL (70-100); POTASSIUM SERUM 4.1 MEQ/L (3.5-5.1); SODIUM LEVEL 144 MEQ/L (136-145); TOTAL PROTEIN 6.8 GM/DL (6.4-8.2); TROPONIN I 0.29 NG/ML (< 0.10)
[2018-04-19 16:09] LABS: CK-MB VALUE MASS 2.1 NG/ML (<3.6)
[2018-04-19 16:12] LABS: AMPHETAMINES LEVEL URINE NEGATIVE (NEGATIVE); BARBITURATES URINE NEGATIVE (NEGATIVE); BENZODIAZEPINES URINE NEGATIVE (NEGATIVE); CANNABINOIDS URINE NEGATIVE (NEGATIVE); COCAINE METABOLITE URINE NEGATIVE (NEGATIVE); METHADONE URINE NEGATIVE (NEGATIVE); OPIATES URINE NEGATIVE (NEGATIVE); PHENCYCLIDINE URINE NEGATIVE (NEGATIVE)
[2018-04-19 16:31] LABS: KETONE, URINE AUTO RFX NEGATIVE (NEGATIVE); LEUKOCYTE ESTERASE UR AUTO RFX NEGATIVE (NEGATIVE); NITRITE, URINE AUTO RFX NEGATIVE (NEGATIVE); RBC, URINE AUTO RFX 1 /HPF (0-3); SQUAM EPITHELIAL CELL UR AURFX 0 /HPF (0-6); WBC, URINE AUTO RFX 1 /HPF (0-3)
[2018-04-19] MEDS ORDERED: GLUCOSE 4 GM CHEW TABLET PO (20:45)
[2018-04-19] MEDS ORDERED: GLUCAGON FOR INJ 1 MG VIAL (J1610) SC (20:45)
[2018-04-19] MEDS ORDERED: DEXTROSE 50% 50 ML SYRINGE IV (20:45)
[2018-04-19 21:04] LABS: MAGNESIUM LEVEL 1.7 MG/DL (1.8-2.4)
[2018-04-19 22:58] LABS: BEDSIDE GLUCOSE 253 MG/DL (83-110)
[2018-04-19] MEDS: LEVEMIR (INSULIN DETEMIR) 1 UNITS/0.01ML SC (23:00)
[2018-04-19] MEDS: LACTULOSE 20 GM/30 ML SYRUP UD PO (23:00)
[2018-04-19] MEDS: ATORVASTATIN 20 MG TAB PO (23:01)
[2018-04-19] MEDS: ISOSORBIDE MON. (IMDUR) 60 MG XR TAB PO (23:01)
[2018-04-19] MEDS: GABAPENTIN 300 MG CAP PO (23:02)
[2018-04-19] MEDS: FERROUS GLUCONATE 324 MG TAB PO (23:02)
[2018-04-20] MEDS: LACTULOSE 20 GM/30 ML SYRUP UD PO ×3 (05:50→21:13)
[2018-04-20 06:44] LABS: HEMATOCRIT 31.2 % (42.0-52.0); HEMOGLOBIN 9.7 g/dl (13.5-17.5); MEAN CORPUSCULAR HEMOGLOBIN 29.4 pg (27.0-33.0); MEAN CORPUSCULAR HGB CONC 31.1 g/dl (32.0-36.5); MEAN CORPUSCULAR VOLUME 94.5 fl (80.0-96.0); PLATELET COUNT, AUTOMATED 131 10^3/uL (150-450); RED CELL DISTRIBUTION WIDTH 15.1 % (11.5-14.5)
[2018-04-20 07:10] LABS: ANION GAP 8 MEQ/L (8-16); BLOOD UREA NITROGEN 24 MG/DL (7-18); CALCIUM LEVEL 8.4 MG/DL (8.8-10.2); CARBON DIOXIDE LEVEL 24 MEQ/L (21-32); CHLORIDE LEVEL 111 MEQ/L (98-107); CREATININE FOR GFR 1.62 MG/DL (0.70-1.30); GLOMERULAR FILTRATION RATE 44.2 (>42); GLUCOSE, FASTING 211 MG/DL (70-100); POTASSIUM SERUM 4.4 MEQ/L (3.5-5.1); SODIUM LEVEL 143 MEQ/L (136-145); TROPONIN I 0.28 NG/ML (< 0.10)
[2018-04-20] MEDS: HumaLOG INSULIN (NovoLOG) PER UNIT SC ×3 (08:57→16:37)
[2018-04-20] MEDS: OMEPRAZOLE 20 MG CAP PO (08:57)
[2018-04-20] MEDS: LEVEMIR (INSULIN DETEMIR) 1 UNITS/0.01ML SC ×2 (08:57→21:14)
[2018-04-20] MEDS: CLOPIDOGREL 75 MG TAB PO (08:58)
[2018-04-20] MEDS: MULTIVITAMINS/MINERALS THERAP 1 TAB PO (08:58)
[2018-04-20] MEDS: GABAPENTIN 300 MG CAP PO ×3 (08:58→21:13)
[2018-04-20] MEDS: PROPRANOLOL 60 MG LA CAP PO (08:58)
[2018-04-20] MEDS: FERROUS GLUCONATE 324 MG TAB PO ×2 (08:59→21:13)
[2018-04-20] MEDS: DULoxetine 30 MG CAP (CYMBALTA) PO (08:59)
[2018-04-20 11:51] LABS: BEDSIDE GLUCOSE 319 MG/DL (83-110)
[2018-04-20] MEDS: NITROGLYCERIN 0.4 MG SUBL TABLET SL (15:44)
[2018-04-20 16:22] LABS: BEDSIDE GLUCOSE 228 MG/DL (83-110)
[2018-04-20 21:00] LABS: BEDSIDE GLUCOSE 252 MG/DL (83-110)
[2018-04-20] MEDS: ATORVASTATIN 20 MG TAB PO (21:13)
[2018-04-20] MEDS: ISOSORBIDE MON. (IMDUR) 60 MG XR TAB PO (21:13)
[2018-04-21] MEDS: LACTULOSE 20 GM/30 ML SYRUP UD PO ×3 (06:04→21:17)
[2018-04-21 06:23] LABS: HEMATOCRIT 30.4 % (42.0-52.0); HEMOGLOBIN 9.7 g/dl (13.5-17.5); MEAN CORPUSCULAR HEMOGLOBIN 29.6 pg (27.0-33.0); MEAN CORPUSCULAR HGB CONC 31.9 g/dl (32.0-36.5); MEAN CORPUSCULAR VOLUME 92.7 fl (80.0-96.0); PLATELET COUNT, AUTOMATED 143 10^3/uL (150-450); RED BLOOD COUNT 3.28 10^6/uL (4.30-6.10); RED CELL DISTRIBUTION WIDTH 15.1 % (11.5-14.5); WHITE BLOOD COUNT 7.2 10^3/uL (4.0-10.0)
[2018-04-21 06:40] LABS: ANION GAP 9 MEQ/L (8-16); BLOOD UREA NITROGEN 28 MG/DL (7-18); CALCIUM LEVEL 8.5 MG/DL (8.8-10.2); CARBON DIOXIDE LEVEL 24 MEQ/L (21-32); CHLORIDE LEVEL 110 MEQ/L (98-107); CREATININE FOR GFR 1.78 MG/DL (0.70-1.30); GLOMERULAR FILTRATION RATE 39.7 (>42); GLUCOSE, FASTING 139 MG/DL (70-100); POTASSIUM SERUM 4.4 MEQ/L (3.5-5.1); SODIUM LEVEL 143 MEQ/L (136-145)
[2018-04-21 07:29] LABS: CPK CREATINE PHOSPHOKINASE 74 U/L (39-308)
[2018-04-21 07:44] LABS: ABG HCO3 22.8 MEQ/L (22.0-26.0); ABG O2 SATURATION 91.1 % (95.0-99.0); ABG PARTIAL PRESSURE CO2 39.1 mmHg (35.0-45.0); ABG PARTIAL PRESSURE O2 61.9 mmHg (75.0-100.0); ABG STANDARD HCO3 22.7 MEQ/L (22.0-26.0); ABG pH (ARTERIAL) 7.384 UNITS (7.350-7.450)
[2018-04-21 08:03] LABS: CK-MB VALUE MASS 1.7 NG/ML (<3.6); MB/CK RELATIVE INDEX 2.29 (< OR =4); TROPONIN I 0.23 NG/ML (< 0.10)
[2018-04-21 08:09] LABS: AMMONIA 28 uMOL/L (<32)
[2018-04-21] MEDS: HumaLOG INSULIN (NovoLOG) PER UNIT SC ×3 (09:03→17:50)
[2018-04-21] MEDS: LEVEMIR (INSULIN DETEMIR) 1 UNITS/0.01ML SC ×2 (09:03→20:39)
[2018-04-21] MEDS: OMEPRAZOLE 20 MG CAP PO (09:04)
[2018-04-21] MEDS: PROPRANOLOL 60 MG LA CAP PO (09:04)
[2018-04-21] MEDS: MULTIVITAMINS/MINERALS THERAP 1 TAB PO (09:04)
[2018-04-21] MEDS: GABAPENTIN 300 MG CAP PO ×3 (09:04→20:38)
[2018-04-21] MEDS: FERROUS GLUCONATE 324 MG TAB PO ×2 (09:04→20:37)
[2018-04-21] MEDS: CLOPIDOGREL 75 MG TAB PO (09:05)
[2018-04-21] MEDS: DULoxetine 30 MG CAP (CYMBALTA) PO (09:09)
[2018-04-21 11:49] LABS: BEDSIDE GLUCOSE 282 MG/DL (83-110)
[2018-04-21 17:17] LABS: BEDSIDE GLUCOSE 283 MG/DL (83-110)
[2018-04-21 20:31] LABS: BEDSIDE GLUCOSE 288 MG/DL (83-110)
[2018-04-21] MEDS: ATORVASTATIN 20 MG TAB PO (20:38)
[2018-04-21] MEDS: ISOSORBIDE MON. (IMDUR) 60 MG XR TAB PO (20:39)
[2018-04-22] MEDS: LACTULOSE 20 GM/30 ML SYRUP UD PO (05:31)
[2018-04-22 07:04] LABS: HEMATOCRIT 29.1 % (42.0-52.0); HEMOGLOBIN 9.3 g/dl (13.5-17.5); MEAN CORPUSCULAR HEMOGLOBIN 29.4 pg (27.0-33.0); MEAN CORPUSCULAR VOLUME 92.1 fl (80.0-96.0); PLATELET COUNT, AUTOMATED 133 10^3/uL (150-450); RED BLOOD COUNT 3.16 10^6/uL (4.30-6.10); RED CELL DISTRIBUTION WIDTH 15.1 % (11.5-14.5); WHITE BLOOD COUNT 6.2 10^3/uL (4.0-10.0)
[2018-04-22 07:16] LABS: ANION GAP 8 MEQ/L (8-16); BLOOD UREA NITROGEN 32 MG/DL (7-18); CALCIUM LEVEL 8.5 MG/DL (8.8-10.2); CARBON DIOXIDE LEVEL 24 MEQ/L (21-32); CHLORIDE LEVEL 108 MEQ/L (98-107); CREATININE FOR GFR 1.84 MG/DL (0.70-1.30); GLOMERULAR FILTRATION RATE 38.2 (>42); GLUCOSE, FASTING 253 MG/DL (70-100); SODIUM LEVEL 140 MEQ/L (136-145)
[2018-04-22] MEDS: HumaLOG INSULIN (NovoLOG) PER UNIT SC (08:35)
[2018-04-22] MEDS: GABAPENTIN 300 MG CAP PO (08:35)
[2018-04-22] MEDS: FERROUS GLUCONATE 324 MG TAB PO (08:35)
[2018-04-22] MEDS: CLOPIDOGREL 75 MG TAB PO (08:35)
[2018-04-22] MEDS: OMEPRAZOLE 20 MG CAP PO (08:36)
[2018-04-22] MEDS: MULTIVITAMINS/MINERALS THERAP 1 TAB PO (08:36)
[2018-04-22] MEDS: DULoxetine 30 MG CAP (CYMBALTA) PO (08:36)
[2018-04-22] MEDS: PROPRANOLOL 60 MG LA CAP PO (08:43)
[2018-04-22] MEDS: LEVEMIR (INSULIN DETEMIR) 1 UNITS/0.01ML SC (08:47)
== END 2018-04-22 11:49 | disposition home or self-care (01) | DRG 441 ==
LOC: M MSPAV 04-21 13:53 → M ED 14:38 → M ED INP 20:26 → M PCU 22:41
DX: K72.90 Hepatic failure, unspecified without coma (principal); G93.41 Metabolic encephalopathy; K76.6 Portal hypertension; J96.11 Chronic respiratory failure with hypoxia; K74.60 Unspecified cirrhosis of liver; J44.9 Chronic obstructive pulmonary disease, unspecified; N18.3 Chronic kidney disease, stage 3 (moderate); D69.59 Other secondary thrombocytopenia; E11.40 Type 2 diabetes mellitus with diabetic neuropathy, unspecified; I25.10 Atherosclerotic heart disease of native coronary artery without angina pectoris; Z95.2 Presence of prosthetic heart valve; K21.9 Gastro-esophageal reflux disease without esophagitis; Z79.899 Other long term (current) drug therapy; Z79.4 Long term (current) use of insulin; Z87.891 Personal history of nicotine dependence; G47.33 Obstructive sleep apnea (adult) (pediatric); I73.9 Peripheral vascular disease, unspecified; E11.21 Type 2 diabetes mellitus with diabetic nephropathy; I27.20 Pulmonary hypertension, unspecified; Z85.46 Personal history of malignant neoplasm of prostate; E78.5 Hyperlipidemia, unspecified; Z91.19 Patient's noncompliance with other medical treatment and regimen

== ENCOUNTER 2018-05-15 14:19 | Inpatient (IN) | payer MEDICARE ==
[2018-05-15 15:11] LABS: BASO % 0.7 % (0.0-1.0); EOS # 0.1 10^3/uL (0.0-0.50); EOS % 2.3 % (0.0-3.0); HEMATOCRIT 27.6 % (42.0-52.0); HEMOGLOBIN 9.1 g/dl (13.5-17.5); IMMATURE GRANULOCYTE % 0.5 % (0-3.0); LYMPH # 0.7 10^3/uL (1.5-4.5); LYMPH % 12.8 % (24.0-44.0); MEAN CORPUSCULAR HEMOGLOBIN 30.4 pg (27.0-33.0); MEAN CORPUSCULAR VOLUME 92.3 fl (80.0-96.0); MONO # 0.5 10^3/uL (0.0-0.8); MONO % 8.5 % (0.0-5.0); NEUTROPHILS # 4.2 10^3/uL (1.8-7.7); NEUTROPHILS % 75.2 % (36.0-66.0); PLATELET COUNT, AUTOMATED 133 10^3/uL (150-450); RED BLOOD COUNT 2.99 10^6/uL (4.30-6.10); RED CELL DISTRIBUTION WIDTH 15.6 % (11.5-14.5); WHITE BLOOD COUNT 5.6 10^3/uL (4.0-10.0)
[2018-05-15] MEDS: NITROGLYCERIN 2% OINT 1 GM *U/D* PKT TOP (15:17)
[2018-05-15 15:22] LABS: INR 1.03; PARTIAL THROMBOPLASTIN TIME 26.9 SECONDS (25.4-37.6); PROTHROMBIN TIME 13.6 SECONDS (12.1-14.4)
[2018-05-15 15:29] LABS: ALBUMIN 2.9 GM/DL (3.2-5.2); ALBUMIN/GLOBULIN RATIO 0.76 (1.00-1.93); ALKALINE PHOSPHATASE 87 U/L (45-117); ALT/SGPT 33 U/L (12-78); ANION GAP 8 MEQ/L (8-16); AST/SGOT 41 U/L (7-37); BILIRUBIN,DIRECT 0.2 MG/DL (0.0-0.2); BILIRUBIN,TOTAL 0.6 MG/DL (0.2-1.0); BLOOD UREA NITROGEN 30 MG/DL (7-18); C REACTIVE PROTEIN QUANTITATIV 0.56 MG/DL (0.00-0.30); CALCIUM LEVEL 8.5 MG/DL (8.8-10.2); CARBON DIOXIDE LEVEL 24 MEQ/L (21-32); CHLORIDE LEVEL 111 MEQ/L (98-107); CPK CREATINE PHOSPHOKINASE 66 U/L (39-308); CREATININE FOR GFR 1.77 MG/DL (0.70-1.30); GLOMERULAR FILTRATION RATE 39.9 (>42); GLUCOSE, FASTING 302 MG/DL (70-100); POTASSIUM SERUM 4.9 MEQ/L (3.5-5.1); SODIUM LEVEL 143 MEQ/L (136-145); TOTAL PROTEIN 6.7 GM/DL (6.4-8.2); TROPONIN I 0.99 NG/ML (< 0.10)
[2018-05-15 15:41] LABS: MB/CK RELATIVE INDEX 6.06 (< OR =4)
[2018-05-15] MEDS: amLODIPine 5 MG TAB PO (16:40)
[2018-05-15] MEDS: PROPRANOLOL 20 MG TAB PO ×2 (16:40→21:36)
[2018-05-15] MEDS ORDERED: GLUCOSE 4 GM CHEW TABLET PO (17:45)
[2018-05-15] MEDS ORDERED: DEXTROSE 50% 50 ML SYRINGE IV (17:45)
[2018-05-15] MEDS ORDERED: IPRATROPIUM 0.5MG/ALBUTEROL 2.5MG INH SOL UD 3ML (DUONEB)(J7620) NEB (17:45)
[2018-05-15] MEDS ORDERED: GLUCAGON FOR INJ 1 MG VIAL (J1610) SC (17:45)
[2018-05-15] MEDS ORDERED: ONDANSETRON 4MG/2ML VIAL (J2405) IV (17:45)
[2018-05-15] MEDS ORDERED: BISACODYL 5 MG TAB PO (17:45)
[2018-05-15 19:51] LABS: BEDSIDE GLUCOSE 181 MG/DL (83-110)
[2018-05-15] MEDS: HumaLOG INSULIN (NovoLOG) PER UNIT SC (20:43)
[2018-05-15] MEDS: ATORVASTATIN 20 MG TAB PO (21:34)
[2018-05-15] MEDS: GABAPENTIN 300 MG CAP PO (21:34)
[2018-05-15] MEDS: HEPARIN SOD (PORCINE) 5000 UNITS/ML VIAL SC (21:34)
[2018-05-15] MEDS: FERROUS GLUCONATE 324 MG TAB PO (21:34)
[2018-05-15] MEDS: ISOSORBIDE MON. (IMDUR) 60 MG XR TAB PO (21:35)
[2018-05-15 22:10] LABS: CPK CREATINE PHOSPHOKINASE 66 U/L (39-308)
[2018-05-15 22:11] LABS: CK-MB VALUE MASS 5.4 NG/ML (<3.6); MB/CK RELATIVE INDEX 8.18 (< OR =4)
[2018-05-15 22:13] LABS: TROPONIN I 2.48 NG/ML (< 0.10)
[2018-05-15] MEDS ORDERED: HEPARIN DRIP 25,000 UNITS in APPROPRIATE DILUENT 1 EA IV (22:36)
[2018-05-15] MEDS: HEPARIN DRIP 25,000 UNITS in APPROPRIATE DILUENT 1 EA IV (23:15)
[2018-05-15 23:42] LABS: HEMATOCRIT 27.3 % (42.0-52.0); HEMOGLOBIN 8.9 g/dl (13.5-17.5); MEAN CORPUSCULAR HEMOGLOBIN 30.5 pg (27.0-33.0); MEAN CORPUSCULAR HGB CONC 32.6 g/dl (32.0-36.5); MEAN CORPUSCULAR VOLUME 93.5 fl (80.0-96.0); PLATELET COUNT, AUTOMATED 118 10^3/uL (150-450); RED BLOOD COUNT 2.92 10^6/uL (4.30-6.10); RED CELL DISTRIBUTION WIDTH 15.7 % (11.5-14.5); WHITE BLOOD COUNT 5.3 10^3/uL (4.0-10.0)
[2018-05-15 23:56] LABS: PARTIAL THROMBOPLASTIN TIME 27.8 SECONDS (25.4-37.6)
[2018-05-16] MEDS: IPRATROPIUM 0.5MG/ALBUTEROL 2.5MG INH SOL UD 3ML (DUONEB)(J7620) NEB ×2 (03:20→09:04)
[2018-05-16 04:06] LABS: HEMATOCRIT 28.4 % (42.0-52.0); HEMOGLOBIN 9.2 g/dl (13.5-17.5); MEAN CORPUSCULAR HGB CONC 32.4 g/dl (32.0-36.5); MEAN CORPUSCULAR VOLUME 92.5 fl (80.0-96.0); PLATELET COUNT, AUTOMATED 141 10^3/uL (150-450); RED BLOOD COUNT 3.07 10^6/uL (4.30-6.10); RED CELL DISTRIBUTION WIDTH 15.8 % (11.5-14.5); WHITE BLOOD COUNT 7.3 10^3/uL (4.0-10.0)
[2018-05-16 04:21] LABS: PARTIAL THROMBOPLASTIN TIME 55.6 SECONDS (25.4-37.6)
[2018-05-16 04:36] LABS: ALBUMIN 2.7 GM/DL (3.2-5.2); ALBUMIN/GLOBULIN RATIO 0.71 (1.00-1.93); ALKALINE PHOSPHATASE 80 U/L (45-117); ALT/SGPT 34 U/L (12-78); ANION GAP 7 MEQ/L (8-16); AST/SGOT 44 U/L (7-37); BILIRUBIN,TOTAL 0.6 MG/DL (0.2-1.0); BLOOD UREA NITROGEN 29 MG/DL (7-18); CALCIUM LEVEL 8.6 MG/DL (8.8-10.2); CARBON DIOXIDE LEVEL 24 MEQ/L (21-32); CHLORIDE LEVEL 113 MEQ/L (98-107); CK-MB VALUE MASS 4.3 NG/ML (<3.6); CPK CREATINE PHOSPHOKINASE 55 U/L (39-308); CREATININE FOR GFR 1.63 MG/DL (0.70-1.30); GLOMERULAR FILTRATION RATE 43.9 (>42); GLUCOSE, FASTING 118 MG/DL (70-100); MB/CK RELATIVE INDEX 7.81 (< OR =4); POTASSIUM SERUM 4.1 MEQ/L (3.5-5.1); SODIUM LEVEL 144 MEQ/L (136-145); TOTAL PROTEIN 6.5 GM/DL (6.4-8.2)
[2018-05-16 04:37] LABS: TROPONIN I 2.57 NG/ML (< 0.10)
[2018-05-16] MEDS: HEPARIN SOD (PORCINE) 5000 UNITS/ML VIAL IV (05:40)
[2018-05-16] MEDS: HumaLOG INSULIN (NovoLOG) PER UNIT SC ×4 (08:37→21:00)
[2018-05-16] MEDS: LACTULOSE 20 GM/30 ML SYRUP UD PO (08:37)
[2018-05-16] MEDS: GABAPENTIN 300 MG CAP PO ×3 (08:37→21:31)
[2018-05-16] MEDS: FERROUS GLUCONATE 324 MG TAB PO ×2 (08:38→21:32)
[2018-05-16] MEDS: PROPRANOLOL 20 MG TAB PO ×2 (08:38→21:36)
[2018-05-16] MEDS: CLOPIDOGREL 75 MG TAB PO (08:38)
[2018-05-16] MEDS: MULTIVITAMINS/MINERALS THERAP 1 TAB PO (08:38)
[2018-05-16] MEDS: OMEPRAZOLE 20 MG CAP PO (08:38)
[2018-05-16] MEDS: DULoxetine 30 MG CAP (CYMBALTA) PO (08:39)
[2018-05-16 09:04] LABS: MAGNESIUM LEVEL 1.7 MG/DL (1.8-2.4)
[2018-05-16] MEDS: NITROGLYCERIN 0.4 MG SUBL TABLET SL ×3 (09:44→12:42)
[2018-05-16 11:34] LABS: BEDSIDE GLUCOSE 289 MG/DL (83-110)
[2018-05-16 12:33] LABS: CK-MB VALUE MASS 2.9 NG/ML (<3.6); CPK CREATINE PHOSPHOKINASE 49 U/L (39-308); MB/CK RELATIVE INDEX 5.91 (< OR =4); TROPONIN I 1.12 NG/ML (< 0.10)
[2018-05-16 13:29] LABS: PARTIAL THROMBOPLASTIN TIME 101.2 SECONDS (25.4-37.6)
[2018-05-16] MEDS: HEPARIN DRIP 25,000 UNITS in APPROPRIATE DILUENT 1 EA IV (16:32)
[2018-05-16 16:53] LABS: BEDSIDE GLUCOSE 216 MG/DL (83-110)
[2018-05-16] MEDS: MAGNESIUM OXIDE 400 MG TAB (MAG-OX) PO (18:27)
[2018-05-16 18:33] LABS: PARTIAL THROMBOPLASTIN TIME 95.7 SECONDS (25.4-37.6)
[2018-05-16 20:31] LABS: BEDSIDE GLUCOSE 189 MG/DL (83-110)
[2018-05-16] MEDS: ISOSORBIDE MON. (IMDUR) 60 MG XR TAB PO (21:32)
[2018-05-16] MEDS: ATORVASTATIN 20 MG TAB PO (21:32)
[2018-05-17 05:45] LABS: HEMATOCRIT 27.5 % (42.0-52.0); HEMOGLOBIN 8.9 g/dl (13.5-17.5); MEAN CORPUSCULAR HEMOGLOBIN 30.5 pg (27.0-33.0); MEAN CORPUSCULAR HGB CONC 32.4 g/dl (32.0-36.5); MEAN CORPUSCULAR VOLUME 94.2 fl (80.0-96.0); PLATELET COUNT, AUTOMATED 128 10^3/uL (150-450); RED BLOOD COUNT 2.92 10^6/uL (4.30-6.10); RED CELL DISTRIBUTION WIDTH 15.5 % (11.5-14.5); WHITE BLOOD COUNT 5.9 10^3/uL (4.0-10.0)
[2018-05-17 05:52] LABS: PARTIAL THROMBOPLASTIN TIME 83.5 SECONDS (25.4-37.6)
[2018-05-17 06:07] LABS: ALBUMIN 2.7 GM/DL (3.2-5.2); ALBUMIN/GLOBULIN RATIO 0.68 (1.00-1.93); ALKALINE PHOSPHATASE 88 U/L (45-117); ALT/SGPT 35 U/L (12-78); ANION GAP 7 MEQ/L (8-16); AST/SGOT 33 U/L (7-37); BILIRUBIN,TOTAL 0.7 MG/DL (0.2-1.0); BLOOD UREA NITROGEN 28 MG/DL (7-18); CALCIUM LEVEL 8.5 MG/DL (8.8-10.2); CARBON DIOXIDE LEVEL 25 MEQ/L (21-32); CHLORIDE LEVEL 109 MEQ/L (98-107); CREATININE FOR GFR 1.68 MG/DL (0.70-1.30); GLOMERULAR FILTRATION RATE 42.4 (>42); GLUCOSE, FASTING 213 MG/DL (70-100); POTASSIUM SERUM 4.7 MEQ/L (3.5-5.1); SODIUM LEVEL 141 MEQ/L (136-145); TOTAL PROTEIN 6.7 GM/DL (6.4-8.2)
[2018-05-17] MEDS: IPRATROPIUM 0.5MG/ALBUTEROL 2.5MG INH SOL UD 3ML (DUONEB)(J7620) NEB ×3 (07:24→15:30)
[2018-05-17] MEDS ORDERED: INFLUENZA QUADRIVALENT PF VACCINE 0.5ML SYRINGE (90686) IM (09:00)
[2018-05-17] MEDS: LACTULOSE 20 GM/30 ML SYRUP UD PO (09:05)
[2018-05-17] MEDS: HumaLOG INSULIN (NovoLOG) PER UNIT SC ×4 (09:06→21:00)
[2018-05-17] MEDS: MULTIVITAMINS/MINERALS THERAP 1 TAB PO (09:06)
[2018-05-17] MEDS: CLOPIDOGREL 75 MG TAB PO (09:06)
[2018-05-17] MEDS: FERROUS GLUCONATE 324 MG TAB PO ×2 (09:07→21:18)
[2018-05-17] MEDS: DULoxetine 30 MG CAP (CYMBALTA) PO (09:07)
[2018-05-17] MEDS: GABAPENTIN 300 MG CAP PO ×3 (09:07→21:19)
[2018-05-17] MEDS: MAGNESIUM OXIDE 400 MG TAB (MAG-OX) PO (09:07)
[2018-05-17] MEDS: OMEPRAZOLE 20 MG CAP PO (09:07)
[2018-05-17] MEDS: PROPRANOLOL 20 MG TAB PO ×2 (09:08→21:22)
[2018-05-17] MEDS: HEPARIN DRIP 25,000 UNITS in APPROPRIATE DILUENT 1 EA IV (10:45)
[2018-05-17 11:45] LABS: BEDSIDE GLUCOSE 351 MG/DL (83-110)
[2018-05-17 16:59] LABS: BEDSIDE GLUCOSE 181 MG/DL (83-110)
[2018-05-17 20:40] LABS: BEDSIDE GLUCOSE 189 MG/DL (83-110)
[2018-05-17] MEDS: ATORVASTATIN 20 MG TAB PO (21:18)
[2018-05-17] MEDS: ISOSORBIDE MON. (IMDUR) 60 MG XR TAB PO (21:19)
[2018-05-18] MEDS: HEPARIN DRIP 25,000 UNITS in APPROPRIATE DILUENT 1 EA IV (04:29)
[2018-05-18 05:09] LABS: HEMATOCRIT 28.4 % (42.0-52.0); MEAN CORPUSCULAR HGB CONC 31.7 g/dl (32.0-36.5); MEAN CORPUSCULAR VOLUME 94.7 fl (80.0-96.0); PLATELET COUNT, AUTOMATED 132 10^3/uL (150-450); RED CELL DISTRIBUTION WIDTH 15.7 % (11.5-14.5); WHITE BLOOD COUNT 6.3 10^3/uL (4.0-10.0)
[2018-05-18 05:23] LABS: ALBUMIN 2.9 GM/DL (3.2-5.2); ALBUMIN/GLOBULIN RATIO 0.74 (1.00-1.93); ALKALINE PHOSPHATASE 82 U/L (45-117); ALT/SGPT 32 U/L (12-78); ANION GAP 10 MEQ/L (8-16); AST/SGOT 30 U/L (7-37); BILIRUBIN,TOTAL 0.6 MG/DL (0.2-1.0); BLOOD UREA NITROGEN 29 MG/DL (7-18); CALCIUM LEVEL 8.7 MG/DL (8.8-10.2); CARBON DIOXIDE LEVEL 22 MEQ/L (21-32); CHLORIDE LEVEL 110 MEQ/L (98-107); CREATININE FOR GFR 1.81 MG/DL (0.70-1.30); GLOMERULAR FILTRATION RATE 38.9 (>42); GLUCOSE, FASTING 255 MG/DL (70-100); POTASSIUM SERUM 4.9 MEQ/L (3.5-5.1); SODIUM LEVEL 142 MEQ/L (136-145); TOTAL PROTEIN 6.8 GM/DL (6.4-8.2)
[2018-05-18 05:24] LABS: PARTIAL THROMBOPLASTIN TIME 71.9 SECONDS (25.4-37.6)
[2018-05-18] MEDS: HumaLOG INSULIN (NovoLOG) PER UNIT SC ×4 (07:44→20:21)
[2018-05-18] MEDS: IPRATROPIUM 0.5MG/ALBUTEROL 2.5MG INH SOL UD 3ML (DUONEB)(J7620) NEB ×4 (08:00→23:34)
[2018-05-18] MEDS: MAGNESIUM OXIDE 400 MG TAB (MAG-OX) PO (08:52)
[2018-05-18] MEDS: OMEPRAZOLE 20 MG CAP PO (08:52)
[2018-05-18] MEDS: GABAPENTIN 300 MG CAP PO ×3 (08:52→20:50)
[2018-05-18] MEDS: MULTIVITAMINS/MINERALS THERAP 1 TAB PO (08:53)
[2018-05-18] MEDS: DULoxetine 30 MG CAP (CYMBALTA) PO (08:53)
[2018-05-18] MEDS: FERROUS GLUCONATE 324 MG TAB PO ×2 (08:53→20:49)
[2018-05-18] MEDS: PROPRANOLOL 20 MG TAB PO ×2 (08:53→20:50)
[2018-05-18] MEDS: LACTULOSE 20 GM/30 ML SYRUP UD PO (08:54)
[2018-05-18] MEDS: CLOPIDOGREL 75 MG TAB PO (09:56)
[2018-05-18 11:53] LABS: BEDSIDE GLUCOSE 307 MG/DL (83-110)
[2018-05-18] MEDS: ACETAMINOPHEN TAB 650MG DOSE (2X325MG) PO (11:54)
[2018-05-18] MEDS: LEVEMIR (INSULIN DETEMIR) 1 UNITS/0.01ML SC ×2 (11:55→20:50)
[2018-05-18 13:09] LABS: BEDSIDE GLUCOSE 298 MG/DL (83-110)
[2018-05-18 17:00] LABS: BEDSIDE GLUCOSE 259 MG/DL (83-110)
[2018-05-18 20:22] LABS: BEDSIDE GLUCOSE 250 MG/DL (83-110)
[2018-05-18] MEDS: ISOSORBIDE MON. (IMDUR) 60 MG XR TAB PO (20:49)
[2018-05-18] MEDS: ATORVASTATIN 20 MG TAB PO (20:50)
[2018-05-19] MEDS ORDERED: SLF 3 ML SYR IV (04:00)
[2018-05-19] MEDS: SLF 3 ML SYR IV (05:14)
[2018-05-19 05:31] LABS: HEMATOCRIT 27.9 % (42.0-52.0); MEAN CORPUSCULAR HEMOGLOBIN 29.9 pg (27.0-33.0); MEAN CORPUSCULAR HGB CONC 32.3 g/dl (32.0-36.5); MEAN CORPUSCULAR VOLUME 92.7 fl (80.0-96.0); PLATELET COUNT, AUTOMATED 122 10^3/uL (150-450); RED BLOOD COUNT 3.01 10^6/uL (4.30-6.10); RED CELL DISTRIBUTION WIDTH 15.7 % (11.5-14.5); WHITE BLOOD COUNT 6.4 10^3/uL (4.0-10.0)
[2018-05-19 05:44] LABS: PARTIAL THROMBOPLASTIN TIME 25.5 SECONDS (25.4-37.6)
[2018-05-19 05:51] LABS: ALBUMIN 2.8 GM/DL (3.2-5.2); ALKALINE PHOSPHATASE 85 U/L (45-117); ALT/SGPT 35 U/L (12-78); ANION GAP 11 MEQ/L (8-16); AST/SGOT 28 U/L (7-37); BILIRUBIN,TOTAL 0.6 MG/DL (0.2-1.0); BLOOD UREA NITROGEN 29 MG/DL (7-18); CALCIUM LEVEL 8.7 MG/DL (8.8-10.2); CARBON DIOXIDE LEVEL 23 MEQ/L (21-32); CHLORIDE LEVEL 108 MEQ/L (98-107); CREATININE FOR GFR 1.75 MG/DL (0.70-1.30); GLOMERULAR FILTRATION RATE 40.4 (>42); GLUCOSE, FASTING 291 MG/DL (70-100); POTASSIUM SERUM 4.7 MEQ/L (3.5-5.1); SODIUM LEVEL 142 MEQ/L (136-145); TOTAL PROTEIN 6.8 GM/DL (6.4-8.2)
[2018-05-19] MEDS: HumaLOG INSULIN (NovoLOG) PER UNIT SC (08:01)
[2018-05-19] MEDS: LEVEMIR (INSULIN DETEMIR) 1 UNITS/0.01ML SC (08:01)
[2018-05-19] MEDS: CLOPIDOGREL 75 MG TAB PO (08:02)
[2018-05-19] MEDS: FERROUS GLUCONATE 324 MG TAB PO (08:02)
[2018-05-19] MEDS: OMEPRAZOLE 20 MG CAP PO (08:02)
[2018-05-19] MEDS: MAGNESIUM OXIDE 400 MG TAB (MAG-OX) PO (08:02)
[2018-05-19] MEDS: DULoxetine 30 MG CAP (CYMBALTA) PO (08:02)
[2018-05-19] MEDS: LACTULOSE 20 GM/30 ML SYRUP UD PO (08:02)
[2018-05-19] MEDS: GABAPENTIN 300 MG CAP PO (08:02)
[2018-05-19] MEDS: MULTIVITAMINS/MINERALS THERAP 1 TAB PO (08:02)
[2018-05-19] MEDS: PROPRANOLOL 20 MG TAB PO (08:04)
[2018-05-19] MEDS: IPRATROPIUM 0.5MG/ALBUTEROL 2.5MG INH SOL UD 3ML (DUONEB)(J7620) NEB (09:19)
== END 2018-05-19 11:18 | disposition home or self-care (01) | DRG 281 ==
LOC: M ED 14:19 → M ED INP 17:36 → M PCU 18:47
DX: I21.4 Non-ST elevation (NSTEMI) myocardial infarction (principal); K76.6 Portal hypertension; N18.3 Chronic kidney disease, stage 3 (moderate); E78.5 Hyperlipidemia, unspecified; J44.9 Chronic obstructive pulmonary disease, unspecified; E11.51 Type 2 diabetes mellitus with diabetic peripheral angiopathy without gangrene; K74.60 Unspecified cirrhosis of liver; Z66 Do not resuscitate; K21.9 Gastro-esophageal reflux disease without esophagitis; I25.10 Atherosclerotic heart disease of native coronary artery without angina pectoris; Z95.2 Presence of prosthetic heart valve; Z79.899 Other long term (current) drug therapy; Z79.4 Long term (current) use of insulin

== ENCOUNTER → 2018-06-16 | Outpatient (CLI) | payer MEDICARE ==
[2018-06-16 21:18] LABS: PROSTATIC SPECIFIC AG MONITOR 0.02 NG/ML (< 4.0)
== END ==
LOC: M WUC 16:28
DX: Z08 Encounter for follow-up examination after completed treatment for malignant neoplasm (principal); Z85.46 Personal history of malignant neoplasm of prostate

== ENCOUNTER → 2018-06-16 | Outpatient (CLI) | payer MEDICARE ==
[2018-06-16 20:54] LABS: HEMATOCRIT 26.6 % (42.0-52.0); HEMOGLOBIN 7.9 g/dl (13.5-17.5); MEAN CORPUSCULAR HEMOGLOBIN 30.6 pg (27.0-33.0); MEAN CORPUSCULAR HGB CONC 29.7 g/dl (32.0-36.5); MEAN CORPUSCULAR VOLUME 103.1 fl (80.0-96.0); PLATELET COUNT, AUTOMATED 161 10^3/uL (150-450); RED BLOOD COUNT 2.58 10^6/uL (4.30-6.10); RED CELL DISTRIBUTION WIDTH 18.1 % (11.5-14.5); WHITE BLOOD COUNT 7.3 10^3/uL (4.0-10.0)
[2018-06-16 21:23] LABS: ALBUMIN 3.2 GM/DL (3.2-5.2); ALBUMIN/GLOBULIN RATIO 0.86 (1.00-1.93); ALKALINE PHOSPHATASE 89 U/L (45-117); ALT/SGPT 26 U/L (12-78); ANION GAP 13 MEQ/L (8-16); AST/SGOT 27 U/L (7-37); BILIRUBIN,TOTAL 0.8 MG/DL (0.2-1.0); BLOOD UREA NITROGEN 48 MG/DL (7-18); CALCIUM LEVEL 8.3 MG/DL (8.8-10.2); CARBON DIOXIDE LEVEL 19 MEQ/L (21-32); CHLORIDE LEVEL 112 MEQ/L (98-107); CREATININE FOR GFR 2.32 MG/DL (0.70-1.30); FERRITIN 119 NG/ML (26-388); GLOMERULAR FILTRATION RATE 29.2 (>42); GLUCOSE, FASTING 152 MG/DL (70-100); POTASSIUM SERUM 5.2 MEQ/L (3.5-5.1); SODIUM LEVEL 144 MEQ/L (136-145); TOTAL PROTEIN 6.9 GM/DL (6.4-8.2)
== END ==
LOC: M WUC 16:23
DX: D50.0 Iron deficiency anemia secondary to blood loss (chronic) (principal); N18.3 Chronic kidney disease, stage 3 (moderate); Z08 Encounter for follow-up examination after completed treatment for malignant neoplasm; Z85.46 Personal history of malignant neoplasm of prostate

== ENCOUNTER 2018-06-17 16:09 | Inpatient (IN) | payer MEDICARE ==
[2018-06-17 17:28] LABS: INR 1.12; PARTIAL THROMBOPLASTIN TIME 28.9 SECONDS (25.4-37.6); PROTHROMBIN TIME 14.6 SECONDS (12.1-14.4)
[2018-06-17] MEDS: PANTOPRAZOLE SODIUM 40 MG in D5W 50 ML IV ×2 (17:33→23:31)
[2018-06-17] MEDS: PANTOPRAZOLE 40MG INJ (PROTONIX) (C9113) IV (17:33)
[2018-06-17] MEDS ORDERED: ONDANSETRON 4MG/2ML VIAL (J2405) IV (17:45)
[2018-06-17 17:56] LABS: CPK CREATINE PHOSPHOKINASE 40 U/L (39-308); TROPONIN I 0.03 NG/ML (< 0.10)
[2018-06-17 18:25] LABS: ALBUMIN 3.3 GM/DL (3.2-5.2); ALBUMIN/GLOBULIN RATIO 0.89 (1.00-1.93); ALKALINE PHOSPHATASE 84 U/L (45-117); ALT/SGPT 26 U/L (12-78); ANION GAP 10 MEQ/L (8-16); AST/SGOT 20 U/L (7-37); BILIRUBIN,TOTAL 0.7 MG/DL (0.2-1.0); BLOOD UREA NITROGEN 53 MG/DL (7-18); CALCIUM LEVEL 8.4 MG/DL (8.8-10.2); CARBON DIOXIDE LEVEL 21 MEQ/L (21-32); CHLORIDE LEVEL 113 MEQ/L (98-107); CREATININE FOR GFR 2.47 MG/DL (0.70-1.30); FERRITIN 99 NG/ML (26-388); GLOMERULAR FILTRATION RATE 27.2 (>42); GLUCOSE, FASTING 235 MG/DL (70-100); IRON (FE) 58 UG/DL (65-175); PERCENT SATURATION 20.8 % (19.7-50.0); POTASSIUM SERUM 5.1 MEQ/L (3.5-5.1); SODIUM LEVEL 144 MEQ/L (136-145); TOTAL IRON BINDING CAPACITY 279 UG/DL (250-450)
[2018-06-17 18:52] LABS: BASO % 0.5 % (0.0-1.0); EOS # 0.2 10^3/uL (0.0-0.50); EOS % 2.9 % (0.0-3.0); HEMATOCRIT 24.5 % (42.0-52.0); HEMOGLOBIN 7.5 g/dl (13.5-17.5); IMMATURE GRANULOCYTE % 0.5 % (0-3.0); LYMPH # 0.8 10^3/uL (1.5-4.5); LYMPH % 13.4 % (24.0-44.0); MEAN CORPUSCULAR HEMOGLOBIN 30.7 pg (27.0-33.0); MEAN CORPUSCULAR HGB CONC 30.6 g/dl (32.0-36.5); MEAN CORPUSCULAR VOLUME 100.4 fl (80.0-96.0); MONO # 0.5 10^3/uL (0.0-0.8); MONO % 9.5 % (0.0-5.0); NEUTROPHILS # 4.1 10^3/uL (1.8-7.7); NEUTROPHILS % 73.2 % (36.0-66.0); PLATELET COUNT, AUTOMATED 136 10^3/uL (150-450); RED BLOOD COUNT 2.44 10^6/uL (4.30-6.10); RETICULOCYTE % 3.3 % (0.5-1.5); WHITE BLOOD COUNT 5.6 10^3/uL (4.0-10.0)
[2018-06-17 19:24] LABS: REASON FOR REVIEW RBC MORPHOLOGY; SLIDE REVIEW Report; SOURCE PERIPHERAL SMEAR
[2018-06-17] MEDS ORDERED: ACETAMINOPHEN 500 MG TAB PO (20:00)
[2018-06-17 20:49] LABS: NT-PRO BNP 7098 PG/ML (<450)
[2018-06-17] MEDS: FERROUS GLUCONATE 324 MG TAB PO (21:46)
[2018-06-17] MEDS: PROPRANOLOL 20 MG TAB PO (21:46)
[2018-06-17] MEDS: GABAPENTIN 300 MG CAP PO (21:46)
[2018-06-17] MEDS: rifAXIMin 550 MG TAB (XIFAXAN) PO (21:47)
[2018-06-17] MEDS: ATORVASTATIN 20 MG TAB PO (21:47)
[2018-06-17 23:26] LABS: IMMEDIATE SPIN CROSSMATCH 1 3
[2018-06-18 00:42] LABS: CPK CREATINE PHOSPHOKINASE 36 U/L (39-308); MB/CK RELATIVE INDEX 4.44 (< OR =4); TROPONIN I 0.03 NG/ML (< 0.10)
[2018-06-18] MEDS: PANTOPRAZOLE SODIUM 40 MG in D5W 50 ML IV ×2 (03:46→08:29)
[2018-06-18] MEDS: FUROSEMIDE 40 MG/4 ML VIAL (J1940) IV (03:46)
[2018-06-18 06:33] LABS: BASO % 0.6 % (0.0-1.0); EOS # 0.2 10^3/uL (0.0-0.50); EOS % 3.4 % (0.0-3.0); IMMATURE GRANULOCYTE % 0.7 % (0-3.0); LYMPH # 0.8 10^3/uL (1.5-4.5); MEAN CORPUSCULAR HGB CONC 31.4 g/dl (32.0-36.5); MEAN CORPUSCULAR VOLUME 95.4 fl (80.0-96.0); MONO # 0.7 10^3/uL (0.0-0.8); MONO % 9.2 % (0.0-5.0); NEUTROPHILS # 5.3 10^3/uL (1.8-7.7); NEUTROPHILS % 75.1 % (36.0-66.0); PLATELET COUNT, AUTOMATED 145 10^3/uL (150-450); RED BLOOD COUNT 3.67 10^6/uL (4.30-6.10); RED CELL DISTRIBUTION WIDTH 18.7 % (11.5-14.5); WHITE BLOOD COUNT 7.1 10^3/uL (4.0-10.0)
[2018-06-18 06:57] LABS: ANION GAP 7 MEQ/L (8-16); BLOOD UREA NITROGEN 47 MG/DL (7-18); CALCIUM LEVEL 8.6 MG/DL (8.8-10.2); CARBON DIOXIDE LEVEL 24 MEQ/L (21-32); CHLORIDE LEVEL 116 MEQ/L (98-107); CPK CREATINE PHOSPHOKINASE 41 U/L (39-308); CREATININE FOR GFR 2.33 MG/DL (0.70-1.30); GLOMERULAR FILTRATION RATE 29.1 (>42); GLUCOSE, FASTING 104 MG/DL (70-100); MB/CK RELATIVE INDEX 4.39 (< OR =4); POTASSIUM SERUM 4.8 MEQ/L (3.5-5.1); SODIUM LEVEL 147 MEQ/L (136-145); TROPONIN I 0.03 NG/ML (< 0.10)
[2018-06-18] MEDS: MULTIVITAMINS/MINERALS THERAP 1 TAB PO (08:28)
[2018-06-18] MEDS: ISOSORBIDE MON. (IMDUR) 60 MG XR TAB PO (08:28)
[2018-06-18] MEDS: rifAXIMin 550 MG TAB (XIFAXAN) PO ×2 (08:28→20:25)
[2018-06-18] MEDS: ASPIRIN 81 MG CHEW TABLET PO (08:28)
[2018-06-18] MEDS: DULoxetine 30 MG CAP (CYMBALTA) PO (08:28)
[2018-06-18] MEDS: RANOLAZINE 500 MG ER TAB PO (08:28)
[2018-06-18] MEDS: GABAPENTIN 300 MG CAP PO ×3 (08:28→20:26)
[2018-06-18] MEDS: FERROUS GLUCONATE 324 MG TAB PO ×2 (08:28→20:26)
[2018-06-18] MEDS: PROPRANOLOL 20 MG TAB PO ×2 (08:29→20:25)
[2018-06-18] MEDS: LACTULOSE 20 GM/30 ML SYRUP UD PO (08:29)
[2018-06-18] MEDS: FLUBLOK(EGG FREE)(QUAD)INFLUENZA VACC 0.5ML SYRINGE (90682)18YRS&OLDER IM (08:37)
[2018-06-18] MEDS ORDERED: OMEPRAZOLE 20 MG CAP PO (09:00)
[2018-06-18] MEDS: OMEPRAZOLE 20 MG CAP PO ×2 (12:25→20:25)
[2018-06-18 16:25] LABS: HEMATOCRIT 33.5 % (42.0-52.0); HEMOGLOBIN 10.6 g/dl (13.5-17.5)
[2018-06-18 16:55] LABS: ANION GAP 7 MEQ/L (8-16); BLOOD UREA NITROGEN 43 MG/DL (7-18); CARBON DIOXIDE LEVEL 22 MEQ/L (21-32); CHLORIDE LEVEL 113 MEQ/L (98-107); CREATININE FOR GFR 2.35 MG/DL (0.70-1.30); GLOMERULAR FILTRATION RATE 28.8 (>42); GLUCOSE, FASTING 254 MG/DL (70-100); POTASSIUM SERUM 5.3 MEQ/L (3.5-5.1); SODIUM LEVEL 142 MEQ/L (136-145)
[2018-06-18] MEDS: ATORVASTATIN 20 MG TAB PO (20:26)
[2018-06-19] MEDS: LACTULOSE 20 GM/30 ML SYRUP UD PO (07:39)
[2018-06-19] MEDS: RANOLAZINE 500 MG ER TAB PO (07:39)
[2018-06-19] MEDS: ASPIRIN 81 MG CHEW TABLET PO (07:39)
[2018-06-19] MEDS: DULoxetine 30 MG CAP (CYMBALTA) PO (07:40)
[2018-06-19] MEDS: FUROSEMIDE 40 MG/4 ML VIAL (J1940) IV ×2 (07:40→16:42)
[2018-06-19] MEDS: OMEPRAZOLE 20 MG CAP PO ×2 (07:40→20:19)
[2018-06-19] MEDS: rifAXIMin 550 MG TAB (XIFAXAN) PO ×2 (07:40→20:19)
[2018-06-19] MEDS: ISOSORBIDE MON. (IMDUR) 60 MG XR TAB PO (07:40)
[2018-06-19] MEDS: GABAPENTIN 300 MG CAP PO ×3 (07:40→20:19)
[2018-06-19] MEDS: MULTIVITAMINS/MINERALS THERAP 1 TAB PO (07:40)
[2018-06-19] MEDS: FERROUS GLUCONATE 324 MG TAB PO ×2 (07:40→20:19)
[2018-06-19] MEDS: PROPRANOLOL 20 MG TAB PO ×2 (07:42→20:20)
[2018-06-19 08:15] LABS: BASO # 0.1 10^3/uL (0.0-0.2); BASO % 0.7 % (0.0-1.0); EOS # 0.3 10^3/uL (0.0-0.50); EOS % 3.5 % (0.0-3.0); HEMATOCRIT 35.5 % (42.0-52.0); HEMOGLOBIN 11.1 g/dl (13.5-17.5); IMMATURE GRANULOCYTE % 0.6 % (0-3.0); LYMPH # 0.8 10^3/uL (1.5-4.5); LYMPH % 8.9 % (24.0-44.0); MEAN CORPUSCULAR HGB CONC 31.3 g/dl (32.0-36.5); MEAN CORPUSCULAR VOLUME 95.9 fl (80.0-96.0); MONO # 0.8 10^3/uL (0.0-0.8); MONO % 9.2 % (0.0-5.0); NEUTROPHILS # 6.5 10^3/uL (1.8-7.7); NEUTROPHILS % 77.1 % (36.0-66.0); PLATELET COUNT, AUTOMATED 150 10^3/uL (150-450); RED CELL DISTRIBUTION WIDTH 18.6 % (11.5-14.5); WHITE BLOOD COUNT 8.4 10^3/uL (4.0-10.0)
[2018-06-19 08:48] LABS: ANION GAP 7 MEQ/L (8-16); BLOOD UREA NITROGEN 44 MG/DL (7-18); CALCIUM LEVEL 8.7 MG/DL (8.8-10.2); CARBON DIOXIDE LEVEL 23 MEQ/L (21-32); CHLORIDE LEVEL 112 MEQ/L (98-107); CREATININE FOR GFR 2.33 MG/DL (0.70-1.30); GLOMERULAR FILTRATION RATE 29.1 (>42); GLUCOSE, FASTING 204 MG/DL (70-100); POTASSIUM SERUM 5.1 MEQ/L (3.5-5.1); SODIUM LEVEL 142 MEQ/L (136-145)
[2018-06-19 16:36] LABS: APPEARANCE, URINE CLEAR (CLEAR); BACTERIA, URINE AUTO NEGATIVE (NEGATIVE); BILIRUBIN, URINE AUTO NEGATIVE (NEGATIVE); BLOOD, URINE BLOOD NEGATIVE (NEGATIVE); COLOR, URINE YELLOW (YELLOW); GLUCOSE, URINE (UA) AUTO NEGATIVE (NEGATIVE); KETONE, URINE AUTO NEGATIVE (NEGATIVE); LEUKOCYTE ESTERASE, URINE AUTO NEGATIVE (NEGATIVE); MUCUS, URINE SMALL (NEGATIVE); NITRITE, URINE AUTO NEGATIVE (NEGATIVE); PROTEIN, URINE AUTO NEGATIVE (NEGATIVE); RBC, URINE AUTO 1 /HPF (0-3); SPECIFIC GRAVITY URINE AUTO 1.009 (1.002-1.035); SQUAMOUS EPITHELIAL CELL UR AU 0 /HPF (0-6); UROBILINOGEN, URINE AUTO 0.2 mg/dL (0.0-2.0); WBC, URINE AUTO 0 /HPF (0-3)
[2018-06-19] MEDS: ATORVASTATIN 20 MG TAB PO (20:19)
[2018-06-20 06:31] LABS: BASO % 0.7 % (0.0-1.0); EOS # 0.2 10^3/uL (0.0-0.50); EOS % 2.6 % (0.0-3.0); HEMATOCRIT 33.4 % (42.0-52.0); HEMOGLOBIN 10.4 g/dl (13.5-17.5); IMMATURE GRANULOCYTE % 0.5 % (0-3.0); LYMPH # 0.7 10^3/uL (1.5-4.5); MEAN CORPUSCULAR HEMOGLOBIN 29.9 pg (27.0-33.0); MEAN CORPUSCULAR HGB CONC 31.1 g/dl (32.0-36.5); MONO # 0.6 10^3/uL (0.0-0.8); MONO % 10.5 % (0.0-5.0); NEUTROPHILS # 4.3 10^3/uL (1.8-7.7); NEUTROPHILS % 73.7 % (36.0-66.0); PLATELET COUNT, AUTOMATED 121 10^3/uL (150-450); RED BLOOD COUNT 3.48 10^6/uL (4.30-6.10); WHITE BLOOD COUNT 5.8 10^3/uL (4.0-10.0)
[2018-06-20 07:04] LABS: ANION GAP 8 MEQ/L (8-16); BLOOD UREA NITROGEN 41 MG/DL (7-18); CARBON DIOXIDE LEVEL 24 MEQ/L (21-32); CHLORIDE LEVEL 107 MEQ/L (98-107); GLOMERULAR FILTRATION RATE 29.5 (>42); GLUCOSE, FASTING 205 MG/DL (70-100); POTASSIUM SERUM 4.6 MEQ/L (3.5-5.1); SODIUM LEVEL 139 MEQ/L (136-145)
[2018-06-20] MEDS: FUROSEMIDE 40 MG/4 ML VIAL (J1940) IV ×2 (08:51→16:13)
[2018-06-20] MEDS: rifAXIMin 550 MG TAB (XIFAXAN) PO ×2 (08:52→20:38)
[2018-06-20] MEDS: GABAPENTIN 300 MG CAP PO ×3 (08:52→20:38)
[2018-06-20] MEDS: RANOLAZINE 500 MG ER TAB PO (08:52)
[2018-06-20] MEDS: ASPIRIN 81 MG CHEW TABLET PO (08:52)
[2018-06-20] MEDS: MULTIVITAMINS/MINERALS THERAP 1 TAB PO (08:52)
[2018-06-20] MEDS: DULoxetine 30 MG CAP (CYMBALTA) PO (08:52)
[2018-06-20] MEDS: FERROUS GLUCONATE 324 MG TAB PO ×2 (08:52→20:38)
[2018-06-20] MEDS: LACTULOSE 20 GM/30 ML SYRUP UD PO (08:52)
[2018-06-20] MEDS: ISOSORBIDE MON. (IMDUR) 60 MG XR TAB PO (08:52)
[2018-06-20] MEDS: OMEPRAZOLE 20 MG CAP PO ×2 (08:52→20:38)
[2018-06-20] MEDS: PROPRANOLOL 20 MG TAB PO ×2 (08:55→20:39)
[2018-06-20] MEDS: SPIRONOLACTONE 25 MG TAB PO ×2 (11:22→16:13)
[2018-06-20] MEDS: NITROGLYCERIN 0.4 MG SUBL TABLET SL (18:09)
[2018-06-20] MEDS: CALCIUM CARBONATE 500 MG CHEW U/D PO (18:45)
[2018-06-20 19:03] LABS: TROPONIN I 0.03 NG/ML (< 0.10)
[2018-06-20] MEDS: ATORVASTATIN 20 MG TAB PO (20:39)
[2018-06-20 20:55] LABS: TROPONIN I 0.02 NG/ML (< 0.10)
[2018-06-21 08:11] LABS: BASO % 0.6 % (0.0-1.0); EOS # 0.2 10^3/uL (0.0-0.50); EOS % 2.2 % (0.0-3.0); HEMATOCRIT 32.7 % (42.0-52.0); HEMOGLOBIN 10.5 g/dl (13.5-17.5); IMMATURE GRANULOCYTE % 0.4 % (0-3.0); LYMPH # 0.7 10^3/uL (1.5-4.5); LYMPH % 10.3 % (24.0-44.0); MEAN CORPUSCULAR HEMOGLOBIN 29.9 pg (27.0-33.0); MEAN CORPUSCULAR HGB CONC 32.1 g/dl (32.0-36.5); MEAN CORPUSCULAR VOLUME 93.2 fl (80.0-96.0); MONO # 0.6 10^3/uL (0.0-0.8); MONO % 9.5 % (0.0-5.0); NEUTROPHILS # 5.2 10^3/uL (1.8-7.7); PLATELET COUNT, AUTOMATED 139 10^3/uL (150-450); RED BLOOD COUNT 3.51 10^6/uL (4.30-6.10); RED CELL DISTRIBUTION WIDTH 17.2 % (11.5-14.5); WHITE BLOOD COUNT 6.8 10^3/uL (4.0-10.0)
[2018-06-21 08:32] LABS: ANION GAP 8 MEQ/L (8-16); BLOOD UREA NITROGEN 44 MG/DL (7-18); CALCIUM LEVEL 8.4 MG/DL (8.8-10.2); CARBON DIOXIDE LEVEL 24 MEQ/L (21-32); CHLORIDE LEVEL 105 MEQ/L (98-107); GLOMERULAR FILTRATION RATE 29.5 (>42); GLUCOSE, FASTING 340 MG/DL (70-100); POTASSIUM SERUM 4.8 MEQ/L (3.5-5.1); SODIUM LEVEL 137 MEQ/L (136-145)
[2018-06-21] MEDS: LACTULOSE 20 GM/30 ML SYRUP UD PO (09:25)
[2018-06-21] MEDS: FUROSEMIDE 40 MG/4 ML VIAL (J1940) IV ×2 (09:26→09:30)
[2018-06-21] MEDS: SPIRONOLACTONE 25 MG TAB PO (09:26)
[2018-06-21] MEDS: ISOSORBIDE MON. (IMDUR) 60 MG XR TAB PO (09:26)
[2018-06-21] MEDS: rifAXIMin 550 MG TAB (XIFAXAN) PO (09:26)
[2018-06-21] MEDS: MULTIVITAMINS/MINERALS THERAP 1 TAB PO (09:26)
[2018-06-21] MEDS: RANOLAZINE 500 MG ER TAB PO (09:26)
[2018-06-21] MEDS: FERROUS GLUCONATE 324 MG TAB PO (09:26)
[2018-06-21] MEDS: DULoxetine 30 MG CAP (CYMBALTA) PO (09:27)
[2018-06-21] MEDS: PROPRANOLOL 20 MG TAB PO (09:27)
[2018-06-21] MEDS: ASPIRIN 81 MG CHEW TABLET PO (09:27)
[2018-06-21] MEDS: OMEPRAZOLE 20 MG CAP PO (09:27)
[2018-06-21] MEDS: GABAPENTIN 300 MG CAP PO (09:27)
[2018-06-21 09:51] LABS: ALBUMIN 3.1 GM/DL (3.2-5.2)
[2018-06-22] MEDS ORDERED: FUROSEMIDE 40 MG TAB PO (09:00)
[2018-06-27] MEDS ORDERED: VITAMIN D 50,000 UNITS CAPSULE (ERGOCALCIFEROL 1.25MG) PO (09:00)
[2018-07-14] MEDS ORDERED: VITAMIN D 50,000 UNITS CAPSULE (ERGOCALCIFEROL 1.25MG) PO (09:00)
== END 2018-06-21 12:50 | disposition home health service (06) | DRG 378 ==
LOC: M MSPAV 06-19 09:12 → M ED 16:09 → M ED INP 17:41 → M PCU 20:27
PROC: 30233N1 Transfusion of Nonautologous Red Blood Cells into Peripheral Vein, Percutaneous Approach (ICD-10-PCS; principal; 2018-06-17)
DX: K31.811 Angiodysplasia of stomach and duodenum with bleeding (principal); D62 Acute posthemorrhagic anemia; K76.6 Portal hypertension; N17.9 Acute kidney failure, unspecified; I85.10 Secondary esophageal varices without bleeding; N18.3 Chronic kidney disease, stage 3 (moderate); J44.9 Chronic obstructive pulmonary disease, unspecified; I12.9 Hypertensive chronic kidney disease with stage 1 through stage 4 chronic kidney disease, or unspecified chronic kidney disease; E55.9 Vitamin D deficiency, unspecified; K74.69 Other cirrhosis of liver; Z79.899 Other long term (current) drug therapy; Z79.4 Long term (current) use of insulin; I25.10 Atherosclerotic heart disease of native coronary artery without angina pectoris; E11.9 Type 2 diabetes mellitus without complications; I25.2 Old myocardial infarction; Z95.1 Presence of aortocoronary bypass graft; K21.9 Gastro-esophageal reflux disease without esophagitis; Z85.46 Personal history of malignant neoplasm of prostate; E66.9 Obesity, unspecified; Z68.31 Body mass index [BMI] 31.0-31.9, adult; Z95.2 Presence of prosthetic heart valve; E87.5 Hyperkalemia

== ENCOUNTER → 2018-06-22 | Outpatient (CLI) | payer MEDICARE ==
[2018-06-22 17:03] LABS: ANION GAP 7 MEQ/L (8-16); BLOOD UREA NITROGEN 38 MG/DL (7-18); CALCIUM LEVEL 8.6 MG/DL (8.8-10.2); CARBON DIOXIDE LEVEL 27 MEQ/L (21-32); CHLORIDE LEVEL 105 MEQ/L (98-107); CREATININE FOR GFR 2.13 MG/DL (0.70-1.30); GLOMERULAR FILTRATION RATE 32.2 (>42); GLUCOSE, FASTING 228 MG/DL (70-100); SODIUM LEVEL 139 MEQ/L (136-145)
[2018-06-22 17:28] LABS: HEMATOCRIT 34.3 % (42.0-52.0); HEMOGLOBIN 11.1 g/dl (13.5-17.5); MEAN CORPUSCULAR HEMOGLOBIN 30.7 pg (27.0-33.0); MEAN CORPUSCULAR HGB CONC 32.4 g/dl (32.0-36.5); MEAN CORPUSCULAR VOLUME 94.8 fl (80.0-96.0); PLATELET COUNT, AUTOMATED 143 10^3/uL (150-450); RED BLOOD COUNT 3.62 10^6/uL (4.30-6.10); RED CELL DISTRIBUTION WIDTH 17.2 % (11.5-14.5); WHITE BLOOD COUNT 6.3 10^3/uL (4.0-10.0)
== END ==
LOC: M LAB 16:08
DX: D50.0 Iron deficiency anemia secondary to blood loss (chronic) (principal)
CPT/HCPCS: 80048

== ENCOUNTER 2018-07-01 12:47 | Emergency (ER) | payer MEDICARE ==
[2018-07-01 14:03] LABS: BASO % 0.4 % (0.0-1.0); EOS # 0.1 10^3/uL (0.0-0.50); EOS % 1.7 % (0.0-3.0); HEMATOCRIT 32.7 % (42.0-52.0); HEMOGLOBIN 10.8 g/dl (13.5-17.5); IMMATURE GRANULOCYTE % 0.4 % (0-3.0); LYMPH % 14.5 % (24.0-44.0); MEAN CORPUSCULAR HEMOGLOBIN 30.9 pg (27.0-33.0); MEAN CORPUSCULAR VOLUME 93.4 fl (80.0-96.0); MONO # 0.9 10^3/uL (0.0-0.8); MONO % 12.5 % (0.0-5.0); NEUTROPHILS # 4.9 10^3/uL (1.8-7.7); NEUTROPHILS % 70.5 % (36.0-66.0); PLATELET COUNT, AUTOMATED 143 10^3/uL (150-450); WHITE BLOOD COUNT 6.9 10^3/uL (4.0-10.0)
[2018-07-01 14:17] LABS: INR 1.04; PARTIAL THROMBOPLASTIN TIME 28.1 SECONDS (25.4-37.6); PROTHROMBIN TIME 13.7 SECONDS (12.1-14.4)
[2018-07-01 14:38] LABS: ALBUMIN 3.3 GM/DL (3.2-5.2); ALBUMIN/GLOBULIN RATIO 0.89 (1.00-1.93); ALKALINE PHOSPHATASE 98 U/L (45-117); ALT/SGPT 40 U/L (12-78); ANION GAP 9 MEQ/L (8-16); AST/SGOT 48 U/L (7-37); BILIRUBIN,DIRECT 0.6 MG/DL (0.0-0.2); BILIRUBIN,TOTAL 2.1 MG/DL (0.2-1.0); BLOOD UREA NITROGEN 58 MG/DL (7-18); CALCIUM LEVEL 8.8 MG/DL (8.8-10.2); CARBON DIOXIDE LEVEL 22 MEQ/L (21-32); CHLORIDE LEVEL 104 MEQ/L (98-107); CPK CREATINE PHOSPHOKINASE 51 U/L (39-308); CREATININE FOR GFR 2.57 MG/DL (0.70-1.30); FREE T4 1.09 NG/DL (0.76-1.46); GLUCOSE, FASTING 460 MG/DL (70-100); LIPASE 113 U/L (73-393); MB/CK RELATIVE INDEX 3.33 (< OR =4); POTASSIUM SERUM 5.8 MEQ/L (3.5-5.1); SODIUM LEVEL 135 MEQ/L (136-145); TROPONIN I 0.02 NG/ML (< 0.10)
[2018-07-01] MEDS: HumuLIN R (REGULAR) INSULIN (NovoLIN R) **100U/ML** PER UNIT IV (15:19)
[2018-07-01] MEDS: ACETAMINOPHEN TAB 650MG DOSE (2X325MG) PO (15:19)
[2018-07-01] MEDS ORDERED: NITROGLYCERIN 0.4 MG SUBL TABLET SL (16:15)
[2018-07-01 16:17] LABS: BEDSIDE GLUCOSE 245 MG/DL (83-110)
[2018-07-01 18:53] LABS: CPK CREATINE PHOSPHOKINASE 53 U/L (39-308); MB/CK RELATIVE INDEX 3.58 (< OR =4); POTASSIUM SERUM 5.1 MEQ/L (3.5-5.1); TROPONIN I 0.02 NG/ML (< 0.10)
== END 2018-07-01 19:19 | disposition home or self-care (01) ==
LOC: M ED 12:47
DX: R07.89 Other chest pain (principal); R00.0 Tachycardia, unspecified; I25.10 Atherosclerotic heart disease of native coronary artery without angina pectoris; I11.9 Hypertensive heart disease without heart failure; I25.2 Old myocardial infarction; E78.5 Hyperlipidemia, unspecified; E11.9 Type 2 diabetes mellitus without complications; K21.9 Gastro-esophageal reflux disease without esophagitis; K92.2 Gastrointestinal hemorrhage, unspecified; Z95.5 Presence of coronary angioplasty implant and graft; Z95.1 Presence of aortocoronary bypass graft; Z79.899 Other long term (current) drug therapy; Z79.4 Long term (current) use of insulin
CPT/HCPCS: 71045

== ENCOUNTER → 2018-07-04 | Outpatient (REF) | payer MEDICARE ==
[2018-07-04 18:09] LABS: AMMONIA 55 uMOL/L (<32)
[2018-07-04 18:12] LABS: BASO # 0.1 10^3/uL (0.0-0.2); BASO % 0.5 % (0.0-1.0); EOS # 0.3 10^3/uL (0.0-0.50); EOS % 2.8 % (0.0-3.0); HEMATOCRIT 35.1 % (42.0-52.0); HEMOGLOBIN 11.4 g/dl (13.5-17.5); IMMATURE GRANULOCYTE % 0.6 % (0-3.0); INR 1.13; LYMPH # 1.5 10^3/uL (1.5-4.5); LYMPH % 16.5 % (24.0-44.0); MEAN CORPUSCULAR HEMOGLOBIN 31.1 pg (27.0-33.0); MEAN CORPUSCULAR HGB CONC 32.5 g/dl (32.0-36.5); MEAN CORPUSCULAR VOLUME 95.9 fl (80.0-96.0); MONO # 0.9 10^3/uL (0.0-0.8); MONO % 9.4 % (0.0-5.0); NEUTROPHILS # 6.5 10^3/uL (1.8-7.7); NEUTROPHILS % 70.2 % (36.0-66.0); PLATELET COUNT, AUTOMATED 213 10^3/uL (150-450); PROTHROMBIN TIME 14.6 SECONDS (12.1-14.4); RED BLOOD COUNT 3.66 10^6/uL (4.30-6.10); RED CELL DISTRIBUTION WIDTH 16.3 % (11.5-14.5); RETIC HEMOGLOBIN EQUIVALENT 39.7 pg (24-36); RETICULOCYTE # 83.4 10^9/L (17-77); RETICULOCYTE % 2.3 % (0.5-1.5); WHITE BLOOD COUNT 9.3 10^3/uL (4.0-10.0)
[2018-07-04 18:13] LABS: PARTIAL THROMBOPLASTIN TIME 28.4 SECONDS (25.4-37.6)
[2018-07-04 18:17] LABS: ALBUMIN 3.8 GM/DL (3.2-5.2); ANION GAP 8 MEQ/L (8-16); BILIRUBIN,DIRECT 0.4 MG/DL (0.0-0.2); BLOOD UREA NITROGEN 70 MG/DL (7-18); CALCIUM LEVEL 9.2 MG/DL (8.8-10.2); CARBON DIOXIDE LEVEL 25 MEQ/L (21-32); CHLORIDE LEVEL 105 MEQ/L (98-107); CREATININE FOR GFR 2.87 MG/DL (0.70-1.30); GLOMERULAR FILTRATION RATE 22.8 (>42); GLUCOSE, FASTING 259 MG/DL (70-100); MAGNESIUM LEVEL 1.8 MG/DL (1.8-2.4); POTASSIUM SERUM 5.6 MEQ/L (3.5-5.1); SODIUM LEVEL 138 MEQ/L (136-145); TROPONIN I < 0.02 NG/ML (< 0.10)
== END ==
LOC: M SFHCPLAZ 14:49
DX: D64.9 Anemia, unspecified (principal); K72.90 Hepatic failure, unspecified without coma; I25.709 Atherosclerosis of coronary artery bypass graft(s), unspecified, with unspecified angina pectoris
CPT/HCPCS: 82140

== ENCOUNTER → 2018-07-08 | Outpatient (CLI) | payer MEDICARE ==
[2018-07-08 15:46] LABS: ALBUMIN 3.7 GM/DL (3.2-5.2); ANION GAP 11 MEQ/L (8-16); BLOOD UREA NITROGEN 55 MG/DL (7-18); CALCIUM LEVEL 9.3 MG/DL (8.8-10.2); CARBON DIOXIDE LEVEL 21 MEQ/L (21-32); CHLORIDE LEVEL 113 MEQ/L (98-107); CREATININE FOR GFR 2.49 MG/DL (0.70-1.30); GLOMERULAR FILTRATION RATE 26.9 (>42); GLUCOSE, FASTING 262 MG/DL (70-100); NT-PRO BNP 1997 PG/ML (<450); PHOSPHORUS LEVEL 3.9 MG/DL (2.5-4.9); POTASSIUM SERUM 5.2 MEQ/L (3.5-5.1); SODIUM LEVEL 145 MEQ/L (136-145)
== END ==
LOC: M SMT 09:37
DX: E87.5 Hyperkalemia (principal)
CPT/HCPCS: 80069

== ENCOUNTER → 2018-07-18 | Outpatient (REF) | payer MEDICARE ==
[2018-07-18 14:55] LABS: FERRITIN 241 NG/ML (26-388); FOLATE > 24.0 NG/ML; IRON (FE) 108 UG/DL (65-175); PERCENT SATURATION 39.3 % (19.7-50.0); TOTAL IRON BINDING CAPACITY 275 UG/DL (250-450)
== END ==
LOC: M LAB REF 13:32
DX: D50.9 Iron deficiency anemia, unspecified (principal)
CPT/HCPCS: 82746

== ENCOUNTER → 2018-08-15 | Outpatient (CLI) | payer MEDICARE ==
[2018-08-15 13:28] LABS: BASO % 0.5 % (0.0-1.0); EOS # 0.2 10^3/uL (0.0-0.50); EOS % 3.4 % (0.0-3.0); HEMATOCRIT 33.1 % (42.0-52.0); HEMOGLOBIN 10.6 g/dl (13.5-17.5); IMMATURE GRANULOCYTE % 0.5 % (0-3.0); LYMPH % 16.4 % (24.0-44.0); MEAN CORPUSCULAR HEMOGLOBIN 32.5 pg (27.0-33.0); MEAN CORPUSCULAR VOLUME 101.5 fl (80.0-96.0); MONO # 0.6 10^3/uL (0.0-0.8); MONO % 10.1 % (0.0-5.0); NEUTROPHILS % 69.1 % (36.0-66.0); PLATELET COUNT, AUTOMATED 200 10^3/uL (150-450); RED BLOOD COUNT 3.26 10^6/uL (4.30-6.10); RED CELL DISTRIBUTION WIDTH 16.6 % (11.5-14.5); WHITE BLOOD COUNT 5.9 10^3/uL (4.0-10.0)
[2018-08-15 13:34] LABS: INR 1.02; PROTHROMBIN TIME 13.5 SECONDS (12.1-14.4)
[2018-08-15 13:35] LABS: PARTIAL THROMBOPLASTIN TIME 22.9 SECONDS (25.4-37.6)
[2018-08-15 14:06] LABS: ALBUMIN 2.9 GM/DL (3.2-5.2); ALBUMIN/GLOBULIN RATIO 0.76 (1.00-1.93); ALKALINE PHOSPHATASE 104 U/L (45-117); ALT/SGPT 35 U/L (12-78); ANION GAP 11 MEQ/L (8-16); AST/SGOT 34 U/L (7-37); BILIRUBIN,TOTAL 1.4 MG/DL (0.2-1.0); BLOOD UREA NITROGEN 44 MG/DL (7-18); CALCIUM LEVEL 8.6 MG/DL (8.8-10.2); CARBON DIOXIDE LEVEL 20 MEQ/L (21-32); CHLORIDE LEVEL 112 MEQ/L (98-107); CREATININE FOR GFR 1.91 MG/DL (0.70-1.30); GLOMERULAR FILTRATION RATE 36.6 (>42); GLUCOSE, FASTING 112 MG/DL (70-100); POTASSIUM SERUM 4.6 MEQ/L (3.5-5.1); SODIUM LEVEL 143 MEQ/L (136-145); TOTAL PROTEIN 6.7 GM/DL (6.4-8.2)
== END ==
LOC: M WUC 11:26
DX: R19.7 Diarrhea, unspecified (principal); Z79.01 Long term (current) use of anticoagulants
CPT/HCPCS: 80053

== ENCOUNTER → 2018-08-20 | Outpatient (CLI) | payer MEDICARE | LOC: M LAB 14:22 | DX: R19.7 Diarrhea, unspecified (principal) | CPT/HCPCS: 87507 ==

== ENCOUNTER 2018-11-24 18:58 | Inpatient (IN) | payer MEDICARE ==
[~2018-11-24] VITALS: Ht 172.7 cm; Wt 92.1 kg
[~2018-11-24 18:58] MED LIST changes: +ALDA25TA2 PO; -AMLO5TAB2 PO; +AMLO5TAB6 PO; +ASPI-1 PO; +ASPI-255 PO; -ASPI1TAB PO; -ASPI325T PO; -ASPI325T24 PO; +ASPI81TA26 PO; +DRIS50003 PO; -DULO30CA PO; +DULO30CA9 PO; +FENT50DI33 TD; -FENT50PA TD; +FERR32TA PO; +FLOM0.4C39 PO; -FLOM5CAP PO; +FURO40TA2 PO; -GABA-283 PO; +GABA-845 PO; -INSULADS INJ; +INSULADS SC; +LACT10SO29 PO; +LACT10SO3 PO; +METO1TAB63 PO; -METO25TAB PO; -NORC1TAB4 PO; +NORC1TAB7 PO; +OMEP40CA2 PO; +PROC1AER16 PR; -PROCAER4 PR; +PROP60CA PO; +PROP80TA PO; +TRAM50TA2 PO; +TRAZ-160 PO; +TRAZ1TAB6 PO; -TRAZ25TA PO; -TRAZ50TA11 PO; +XIFA550T PO
[2018-11-24] MEDS ORDERED: ASPIRIN 81 MG CHEW TABLET PO ONE (19:30)
--- NOTE | 2018-11-24 19:34 | ECGEPIP ---
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
[2018-11-24 19:43] LABS: BASO # 0.1 10^3/uL (0.0-0.2); BASO % 0.8 % (0.0-1.0); EOS # 0.2 10^3/uL (0.0-0.50); EOS % 2.7 % (0.0-3.0); HEMATOCRIT 36.1 % (42.0-52.0); HEMOGLOBIN 11.4 g/dl (13.5-17.5); LYMPH # 1.1 10^3/uL (1.5-4.5); LYMPH % 14.1 % (24.0-44.0); MEAN CORPUSCULAR HEMOGLOBIN 31.7 pg (27.0-33.0); MEAN CORPUSCULAR HGB CONC 31.6 g/dl (32.0-36.5); MEAN CORPUSCULAR VOLUME 100.3 fl (80.0-96.0); MONO # 0.6 10^3/uL (0.0-0.8); MONO % 7.8 % (0.0-5.0); NEUTROPHILS # 5.6 10^3/uL (1.8-7.7); NEUTROPHILS % 73.8 % (36.0-66.0); PLATELET COUNT, AUTOMATED 152 10^3/uL (150-450); WHITE BLOOD COUNT 7.5 10^3/uL (4.0-10.0)
[2018-11-24 19:49] LABS: INR 1.14; PROTHROMBIN TIME 14.8 SECONDS (12.1-14.4)
[2018-11-24 19:50] LABS: PARTIAL THROMBOPLASTIN TIME 27.3 SECONDS (25.4-37.6)
[2018-11-24] MEDS ORDERED: METOPROLOL 5 MG/5 ML VIAL IV STA ×2 (19:54→21:12)
--- NOTE | 2018-11-24 19:56 | REP ---
A PA and lateral chest, the patient sitting, 07:27 p.m.: Comparison is 06/17/2018. There is chronic cardiomegaly, unchanged. There are sternotomy wires, unchanged. There is chronic interstitial coarsening, unchanged, nonspecific, interstitial fibrosis for a there is versus chronic pulmonary vascular engorgement. There are no focal infiltrates. No pleural effusions. Impression: Chronic cardiomegaly and chronic interstitial coarsening. Electronically Signed by Edu Cabrera MD 11/24/2018 07:47 P
[2018-11-24] MEDS ORDERED: MORPHINE 4 MG/ML 1ML VIAL/SYRINGE (J2270) IV ONE (20:00)
[2018-11-24 20:10] LABS: ALBUMIN 3.5 GM/DL (3.2-5.2); BILIRUBIN,DIRECT 0.2 MG/DL (0.0-0.2); BILIRUBIN,TOTAL 0.6 MG/DL (0.2-1.0); CALCIUM LEVEL 8.7 MG/DL (8.8-10.2); CREATININE FOR GFR 2.4 MG/DL (0.70-1.30); FREE T4 0.99 NG/DL (0.76-1.46); GLOMERULAR FILTRATION RATE 28.1 (>42); MB/CK RELATIVE INDEX 4.65 (< OR =4); POTASSIUM SERUM 4.6 MEQ/L (3.5-5.1); THYROID STIMULATING HORMONE 4.12 uIU/ML (0.358-3.740); TROPONIN I 0.02 NG/ML (< 0.10)
[2018-11-24] MEDS ORDERED: GABAPENTIN 300 MG CAP PO SCH (21:00)
[2018-11-24] MEDS ORDERED: ATORVASTATIN 20 MG TAB PO SCH (21:00)
[2018-11-24] MEDS ORDERED: PROPRANOLOL 60 MG LA CAP PO SCH (21:00)
[2018-11-24] MEDS ORDERED: NS 500 ML IV SCH (21:45)
[2018-11-24] MEDS ORDERED: CALC1CAP31 PO (21:48)
[2018-11-24] MEDS ORDERED: ASPI81TAEC PO (21:48)
[2018-11-24] MEDS ORDERED: GLUCAGON FOR INJ 1 MG VIAL (J1610) SC PRN (22:00)
[2018-11-24] MEDS ORDERED: NITROGLYCERIN 0.4 MG SUBL TABLET SL PRN (22:00)
[2018-11-24] MEDS ORDERED: GLUCOSE 4 GM CHEW TABLET PO PRN (22:00)
[2018-11-24] MEDS ORDERED: DEXTROSE 50% 50 ML SYRINGE IV PRN (22:00)
--- NOTE | 2018-11-25 01:47 | HPE ---
DATE OF ADMISSION: 11/24/2018 CHIEF COMPLAINT: Left parasternal chest pain that started around 6 p.m. HISTORY OF PRESENT ILLNESS: The patient is a 78-year-old male with significant past medical history of cryptogenic cirrhosis with esophageal varices. He has undergone banding as well as ablation in the past. He follows with Dr. Abreu. He also has a history of coronary artery disease (CAD) status post coronary artery bypass grafting (CABG) fifteen years ago as well as multiple catheterizations with stents. Last percutaneous coronary intervention (PCI) was April of 2018. He has chronic kidney disease (CKD), obstructive sleep apnea (ELISE) on continuous positive airway pressure (CPAP). He follows with Dr. Ring for cardiology. He has acid reflux. He presents to the emergency room with left parasternal chest pain that started around 6 p.m. tonight. He attempted to use three nitroglycerin; however, the chest pain did not relieve. It is nonradiating, 6-8/10 in severity. It is a pressure-like chest pain. The patient denies any heavy recent lifting. He denies any symptoms of acid reflux. He denies any diaphoresis, nausea, vomiting, shortness of breath. He does endorse subjective palpitations from time to time. In the emergency room, his heart rate was in the low 100s. He states he recently saw his physical therapy assistant, Dr. Ring who wanted to increase his propranolol for better rate control of his atrial fibrillation (AFib) as his heart rate in the office was noted to be 112. PAST MEDICAL HISTORY: See history of the present illness (HPI). PAST SURGICAL HISTORY: 1. Gallbladder removed. 2. Coronary artery bypass grafting (CABG) 3. He has had banding and ablation of varices. 4. He has had radiation for his prostate. HOME MEDICATIONS: Include: - propranolol 80 twice a day - Tylenol - insulin sliding scale - aspirin - Lipitor - calcitriol - Cymbalta - gabapentin - Lantus 50 twice a day - isosorbide mononitrate - nitroglycerin as needed - omeprazole ALLERGIES: No known drug allergies. SOCIAL HISTORY: He is a former smoker. Denies alcohol or illicit drug use. FAMILY HISTORY: Family history of heart disease. REVIEW OF SYSTEMS: A 12-point review of systems was completed, all of which were negative except those listed in the history of the present illness. VITAL SIGNS ON ADMISSION: Temperature 98.6 pulse of 109, respirations 18, blood pressure 128/58, saturating at 98% on room air. PHYSICAL EXAMINATION: General: He is well nourished, in no apparent distress. Head is normocephalic, atraumatic. Eyes: Extraocular movements are intact. Pupils equal, round, reactive to light. Neck is supple. No jugular venous pressure (JVP). Lungs: There are some basalar crackles. No wheezing. Cardiovascular: Irregularly irregular rhythm. No murmurs, gallops, or rubs. Abdomen: Soft, nontender, nondistended, positive bowel sounds. No rebound or guarding. Extremities: No pitting edema or calf tenderness. Neurological: Alert and oriented (A and O) times three. Neurological: No focal deficits appreciated on examination. LABORATORIES AND IMAGING COMPLETED IN THE EMERGENCY ROOM: White count of 7, hemoglobin and hematocrit (H and H) of 11/36, platelet count of 152. Coagulation panel (coags): INR of 1.14. Chemistry shows a BUN and creatinine of 37 and 2.4. Baseline creatinine of 1.9. Troponins are negative. Thyroid-stimulating hormone (TSH) 4.1, free T4 is 0.99. Liver function tests (LFTs) within normal limits. Chest x-ray shows chronic cardiomegaly and chronic interstitial coarsening. ASSESSMENT AND PLAN: 1. Chest pain, atypical. Likely musculoskeletal. Will rule out acute coronary syndrome (ACS) possibly secondary to atrial fibrillation (AFib) with rapid ventricular response (RVR). Will get serial electrocardiograms (EKG), telemetry, echocardiogram, thyroid-stimulating hormone (TSH) check. Will check urinalysis (UA) for any signs of infection. Will increase propranolol. Cardiology consult for the a.m. The patient is not on Eliquis per a history of gastrointestinal (GI) bleed. 2. History of gastrointestinal (GI) bleed. Hemoglobin is stable. Will continue to monitor. 3. Acute kidney injury (BRODY) on chronic kidney disease (CKD). Will gently fluid hydrate and continue to trend renal function. 4. Coronary artery disease (CAD) status post coronary artery bypass grafting (CABG). Will continue Imdur, propranolol, aspirin and nitroglycerin. 5. Cirrhosis with varices status post banding. Will continue the propranolol. 6. Diabetes with nephropathy. Will continue basal bolus insulin. 7. Supportive deep vein thrombosis (DVT) prophylaxis: Sequential compression devices (SCD). 8. Gastrointestinal (GI) prophylaxis: He is already on omeprazole. 9. Diet: Cardiac, diabetic diet.
[2018-11-25 05:55] LABS: HEMATOCRIT 31.4 % (42.0-52.0); HEMOGLOBIN 10.2 g/dl (13.5-17.5); MEAN CORPUSCULAR HEMOGLOBIN 31.4 pg (27.0-33.0); MEAN CORPUSCULAR HGB CONC 32.5 g/dl (32.0-36.5); MEAN CORPUSCULAR VOLUME 96.6 fl (80.0-96.0); PLATELET COUNT, AUTOMATED 107 10^3/uL (150-450); RED BLOOD COUNT 3.25 10^6/uL (4.30-6.10); WHITE BLOOD COUNT 5.2 10^3/uL (4.0-10.0)
[2018-11-25 06:23] LABS: CALCIUM LEVEL 8.2 MG/DL (8.8-10.2); CREATININE FOR GFR 2.3 MG/DL (0.70-1.30); GLOMERULAR FILTRATION RATE 29.5 (>42); POTASSIUM SERUM 4.6 MEQ/L (3.5-5.1); TROPONIN I 0.02 NG/ML (< 0.10)
[2018-11-25] MEDS: HumaLOG INSULIN (NovoLOG) PER UNIT SC SCH ×3 (08:55→18:36)
[2018-11-25] MEDS: OMEPRAZOLE 20 MG CAP PO SCH ×2 (08:55→22:10)
[2018-11-25] MEDS: ASPIRIN 81 MG ENTERIC TAB PO SCH (08:55)
[2018-11-25] MEDS: MULTIVITAMINS/MINERALS THERAP 1 TAB PO SCH (08:55)
[2018-11-25] MEDS: GABAPENTIN 300 MG CAP PO SCH ×3 (08:56→22:09)
[2018-11-25] MEDS: ISOSORBIDE MON. (IMDUR) 60 MG XR TAB PO SCH (08:57)
[2018-11-25] MEDS: DULoxetine 30 MG CAP (CYMBALTA) PO SCH (08:59)
[2018-11-25] MEDS ORDERED: CALCITRIOL 0.25 MCG CAP (S0169) PO SCH (09:00)
[2018-11-25] MEDS: LEVEMIR (INSULIN DETEMIR) 1 UNITS/0.01ML SC SCH ×2 (11:03→22:10)
[2018-11-25] MEDS: PROPRANOLOL 60 MG LA CAP PO SCH ×2 (11:04→22:23)
[2018-11-25 16:05] VITALS: BP 160/74
--- NOTE | 2018-11-25 20:00 | ECHO ---
DATE OF PROCEDURE: 11/25/2018 DATE OF : 1940 AGE: 78 REFERRING PROVIDER: Dr. Pat Wednesday KNIFEMAN: Dr. Ring PATIENT ROOM NUMBER: [id number] REASON FOR THE ECHOCARDIOGRAM: Chest pain. 2D MEASUREMENTS: IVS: 1.2 cm LV: 4.9 cm LVPW: 1.9 cm LA: 4.6 cm Aorta: 2.8 cm IVC: 2.2 cm DOPPLER MEASUREMENTS: Peak velocity across the aortic valve: 1.3 m/s Peak velocity across the LVOT: 0.97 m/s Mitral E: 1.4 Maximum tricuspid valve velocity: 2.9 m/s 2D COMMENTS: 1. Technically limited study due to poor acoustic window. 2. The left ventricular size subjectively appeared to be mildly enlarged with a depressed global left ventricular systolic function. The estimated global left ventricular systolic function is 30-35%. The apex was not well visualized in the apical views but seems to be ivory in the short axis view. 3. Mildly enlarged left atrium. The right atrium and right ventricle also appeared to be enlarged. 4. Normal aortic root. 5. The atrial septum appeared to be normal without evidence of defect or shunt. 6. Trace to small pericardial effusion noted, no evidence of cardiac tamponade. 7. Mildly calcified aortic valve with normal leaflet excursion. Mildly calcified mitral annulus with normal anterior mitral valve leaflet motion. Normal tricuspid valve. The pulmonic valve and proximal pulmonary artery branches appear to be normal. 8. The inferior vena cava is enlarged, central venous pressure might be elevated. DOPPLER: It detects trace aortic regurgitation, trace mitral regurgitation, and probably moderate tricuspid regurgitation. The calculated pulmonary artery systolic pressure varies between 30-40 mmHg. IMPRESSION: 1. Technically limited study due to poor acoustic window. 2. Moderate global left ventricular systolic dysfunction with diffuse hypokinesis. 3. Aortic valve sclerosis with trace aortic regurgitation but no aortic stenosis. 4. Mitral annulus calcification with mildly enlarged left atrium and only trace mitral regurgitation detected. 5. Mild to moderate tricuspid regurgitation with moderate pulmonary hypertension and dilated right heart chambers. 6. Trace to small pericardial effusion, no evidence of cardiac tamponade. 7. The inferior vena cava was mildly enlarged, central venous pressure might be elevated. 8. This was compared with prior and most recent echocardiogram on 04/20/2018, left ventricular systolic function then was normal. MTDD
--- NOTE | 2018-11-25 21:37 | IPNPDOC ---
Text Note Date of Service The patient was seen on 11/25/18. NOTE Subjective: Chest pain has resolved. Pulse rate better controlled ranging bet ween 90 to 110. He says he just feels always very tired and the minimal exertion makes him very winded. PHYSICAL EXAMINATION: VITALS: As below General: He is well nourished, in no apparent distress. Head is normocephalic, atraumatic. Eyes: Extraocular movements are intact. Pupils equal, round, reactive to light. Neck is supple. No jugular venous pressure (JVP). Lungs: There are some basalar crackles. No wheezing. Cardiovascular: Irregularly irregular rhythm. No murmurs, gallops, or rubs. Abdomen: Soft, nontender, nondistended, positive bowel sounds. No rebound or guarding. Extremities: No pitting edema or calf tenderness. Neurological: Alert and oriented (A and O) times three. Neurological: No focal deficits appreciated on examination. Labs and radiology : reviewed. Assessment and Plan: This is a 78-year-old male with past medical history significant for cryptogenic cirrhosis with portal hypertension, esophageal varices, status post ablation every 2 months previously followed with EGD every [address] 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 In April he again had chest pains so was sent to [facility]. There he was told that 2 of his stents were hampering the blood flow in one of his major arteries and they tried to take it out but could not. He also has chronic kidney disease (CKD), obstructive sleep apnea (ELISE) on continuous positive airway pressure (CPAP), most recent non-ST elevation myocardial infarction May 15, 2018 for which he was treated medically and was not sent out to [facility], type 2 diabetes, chronic obstructive pulmonary disease (COPD), gastroesophageal reflux disease , h/o prostate cancer and obstructive uropathy presents to the emergency room with left parasternal chest pain for about 4 hours. He attempted to use three nitroglycerin; however, the chest pain did not relieve. It is nonradiating, 6-8/10 in severity. It is a pressure-like chest pain. The patient denies any heavy recent lifting. He denies any symptoms of acid reflux. He denies any diaphoresis, nausea, vomiting, shortness of breath. He does endorse subjective palpitations from time to time. In the emergency room, his heart rate was in the low 100s. He states he recently saw his director of rehabilitative services, Dr. Ring who wanted to increase his propranolol for better rate control of his atrial fibrillation (AFib) as his heart rate in the office was noted to be 112. He was admitted for work up of atypical chest pain. Atypical chest pain No elevation of troponins and no dynamic EKG changes could be related to tachycardia from uncontrolled afib propranolol dosage increased Dr Gold to see. CAD with prior AMIs, cabg and stents continue ASA, betablocker, statin Afib with RVR for rate control. propranolol dosage increased. 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 before his EF was normal appears euvolemic at present will follow cardiology recommendations. CKD stage 3 to 4 creatinine at baseline will continue to monitor. continue calcitriol ELISE on CPAP continue Cryptogenic cirrhosis with portal hypertension continue propanolol lactulose prn Diabetes with neuropathy continue levemir and lispro, gabapentin, cymbalta GERD continue omeprazole DVT prophylasix in place. VS,Fishbone, I+O VS, Fishbone, I+O Laboratory Tests 11/24/18 19:15 Red Blood Count 3.60 L, Mean Corpuscular Volume 100.3 H, Mean Corpuscular Hemoglobin 31.7, Mean Corpuscular Hemoglobin Concent 31.6 L, Red Cell Distribution Width 14.3, Neutrophils (%) (Auto) 73.8 H, Lymphocytes (%) (Auto) 14.1 L, Monocytes (%) (Auto) 7.8 H, Eosinophils (%) (Auto) 2.7, Basophils (%) (Auto) 0.8, Neutrophils # (Auto) 5.6, Lymphocytes # (Auto) 1.1 L, Monocytes # (Auto) 0.6, Eosinophils # (Auto) 0.2, Basophils # (Auto) 0.1 11/25/18 05:28 Red Blood Count 3.25 L, Mean Corpuscular Volume 96.6 H, Mean Corpuscular Hemoglobin 31.4, Mean Corpuscular Hemoglobin Concent 32.5, Red Cell Distribution Width 14.2, Calcium Level 8.2 L Vital Signs Date Time Temp Pulse Resp B/P (MAP) Pulse Ox O2 Delivery O2 Flow Rate FiO2 11/25/18 03:58 100 97 11/25/18 03:43 18 11/25/18 02:00 91/60 (70) 11/24/18 19:00 98.6 Room Air I&O- Last 24 Hours up to 6 AM 11/25/18 06:00 Intake Total 650 ml Output Total 100 ml Balance 550 ml LEIGH TRAORE MD Nov 25, 2018 08:16
[2018-11-25 22:00] VITALS: BP 139/62
[2018-11-25] MEDS: ATORVASTATIN 20 MG TAB PO SCH (22:10)
[2018-11-26 06:00] VITALS: BP 133/76
[2018-11-26 06:58] LABS: HEMATOCRIT 33.7 % (42.0-52.0); MEAN CORPUSCULAR HEMOGLOBIN 31.4 pg (27.0-33.0); MEAN CORPUSCULAR HGB CONC 32.6 g/dl (32.0-36.5); MEAN CORPUSCULAR VOLUME 96.3 fl (80.0-96.0); PLATELET COUNT, AUTOMATED 129 10^3/uL (150-450); WHITE BLOOD COUNT 7.1 10^3/uL (4.0-10.0)
[2018-11-26 07:13] LABS: CALCIUM LEVEL 8.5 MG/DL (8.8-10.2); CREATININE FOR GFR 1.81 MG/DL (0.70-1.30); GLOMERULAR FILTRATION RATE 38.9 (>42); POTASSIUM SERUM 4.6 MEQ/L (3.5-5.1)
[2018-11-26] MEDS: HumaLOG INSULIN (NovoLOG) PER UNIT SC SCH ×3 (09:26→18:08)
[2018-11-26] MEDS: GABAPENTIN 300 MG CAP PO SCH ×3 (09:27→21:00)
[2018-11-26] MEDS: ASPIRIN 81 MG ENTERIC TAB PO SCH (09:27)
[2018-11-26] MEDS: DULoxetine 30 MG CAP (CYMBALTA) PO SCH (09:27)
[2018-11-26] MEDS: LEVEMIR (INSULIN DETEMIR) 1 UNITS/0.01ML SC SCH ×2 (09:27→21:00)
[2018-11-26] MEDS: MULTIVITAMINS/MINERALS THERAP 1 TAB PO SCH (09:27)
[2018-11-26] MEDS: ISOSORBIDE MON. (IMDUR) 60 MG XR TAB PO SCH (09:32)
[2018-11-26] MEDS: OMEPRAZOLE 20 MG CAP PO SCH ×2 (09:32→20:59)
[2018-11-26] MEDS: PROPRANOLOL 60 MG LA CAP PO SCH ×2 (11:44→21:09)
--- NOTE | 2018-11-26 13:26 | ECGEPIP ---
Stationary ECG Study [facility] Test Date: 2018-11-25 Pat Name: IRA DUMAS Department: Room: [place] [address] Gender: M Head Miller: luisana : 1940 Requested By: MADDY WEDNESDAY Order Number: [id number] Reading MD: Paulo Hoang Measurements Intervals [place] Rate: 87 P: MD: 0 QRS: 62 QRSD: 99 T: 132 QT: 365 QTc: 439 Interpretive Statements Atrial fibrillation with a controlled ventricular response Possible prior inferior wall myocardial infarction Nonspecific repolarization abnormalities No significant change since prior tracing of 11/24/2018 Electronically Signed On 11-26-2018 13:26:24 EDT by Paulo Hoang
[2018-11-26 14:00] VITALS: BP 134/69
--- NOTE | 2018-11-26 15:52 | IPNPDOC ---
Text Note Date of Service The patient was seen on 11/26/18. NOTE Subjective: Chest pain has resolved. Pulse rate better controlled ranging bet ween 90 to 110. He says he just feels always very tired and the minimal exertion makes him very winded. PHYSICAL EXAMINATION: VITALS: As below General: He is well nourished, in no apparent distress. Head is normocephalic, atraumatic. Eyes: Extraocular movements are intact. Pupils equal, round, reactive to light. Neck is supple. No jugular venous pressure (JVP). Lungs: There are some basalar crackles. No wheezing. Cardiovascular: Irregularly irregular rhythm. No murmurs, gallops, or rubs. Abdomen: Soft, nontender, nondistended, positive bowel sounds. No rebound or guarding. Extremities: No pitting edema or calf tenderness. Neurological: Alert and oriented (A and O) times three. Neurological: No focal deficits appreciated on examination. Labs and radiology : reviewed. Assessment and Plan: This is a 78-year-old male with past medical history significant for cryptogenic cirrhosis with portal hypertension, esophageal varices, status post ablation every 2 months previously followed with EGD every [address] 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 In April he again had chest pains so was sent to [facility]. There he was told that 2 of his stents were hampering the blood flow in one of his major arteries and they tried to take it out but could not. He also has chronic kidney disease (CKD), obstructive sleep apnea (ELISE) on continuous positive airway pressure (CPAP), most recent non-ST elevation myocardial infarction May 15, 2018 for which he was treated medically and was not sent out to [facility], type 2 diabetes, chronic obstructive pulmonary disease (COPD), gastroesophageal reflux disease , h/o prostate cancer and obstructive uropathy presents to the emergency room with left parasternal chest pain for about 4 hours. He attempted to use three nitroglycerin; however, the chest pain did not relieve. It is nonradiating, 6-8/10 in severity. It is a pressure-like chest pain. The patient denies any heavy recent lifting. He denies any symptoms of acid reflux. He denies any diaphoresis, nausea, vomiting, shortness of breath. He does endorse subjective palpitations from time to time. In the emergency room, his heart rate was in the low 100s. He states he recently saw his agricultural produce washer, Dr. Rnig who wanted to increase his propranolol for better rate control of his atrial fibrillation (AFib) as his heart rate in the office was noted to be 112. He was admitted for work up of atypical chest pain. Atypical chest pain No elevation of troponins and no dynamic EKG changes could be related to tachycardia from uncontrolled afib propranolol dosage increased CAD with prior AMIs, cabg and stents continue ASA, betablocker, statin Afib with RVR for rate control. propranolol dosage increased. However rate still not adequately controlled. will start on digoxin. 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 before his EF was normal before in 2018. appears euvolemic at present will place on fluid restriction but does not need any diuretic at this point. will consider spironolactone. CKD stage 3 to 4 creatinine at baseline will continue to monitor. continue calcitriol ELISE on CPAP continue Cryptogenic cirrhosis with portal hypertension continue propanolol lactulose prn Diabetes with neuropathy continue levemir and lispro, gabapentin, cymbalta GERD continue omeprazole DVT prophylasix in place. VS,Fishbone, I+O VS, Fishbone, I+O Laboratory Tests 11/26/18 06:36 Red Blood Count 3.50 L, Mean Corpuscular Volume 96.3 H, Mean Corpuscular Hemoglobin 31.4, Mean Corpuscular Hemoglobin Concent 32.6, Red Cell Distribution Width 14.3, Calcium Level 8.5 L Vital Signs Date Time Temp Pulse Resp B/P (MAP) Pulse Ox O2 Delivery O2 Flow Rate FiO2 11/26/18 14:00 97.6 110 19 134/69 (90) 94 11/24/18 19:00 Room Air I&O- Last 24 Hours up to 6 AM 11/26/18 06:00 Intake Total 480 ml Balance 480 ml LEIGH TRAORE MD Nov 26, 2018 15:52
[2018-11-26] MEDS ORDERED: DIGOXIN INJ 0.5 MG/2 ML AMP (J1160) IV ONE (16:30)
[2018-11-26] MEDS: ATORVASTATIN 20 MG TAB PO SCH (21:00)
[2018-11-26 22:00] VITALS: BP 154/74
[2018-11-27 06:00] VITALS: BP 144/79
[2018-11-27 06:01] LABS: HEMATOCRIT 32.2 % (42.0-52.0); HEMOGLOBIN 10.5 g/dl (13.5-17.5); MEAN CORPUSCULAR HEMOGLOBIN 31.3 pg (27.0-33.0); MEAN CORPUSCULAR HGB CONC 32.6 g/dl (32.0-36.5); MEAN CORPUSCULAR VOLUME 95.8 fl (80.0-96.0); PLATELET COUNT, AUTOMATED 110 10^3/uL (150-450); RED BLOOD COUNT 3.36 10^6/uL (4.30-6.10)
[2018-11-27 06:22] LABS: CALCIUM LEVEL 8.6 MG/DL (8.8-10.2); CREATININE FOR GFR 1.88 MG/DL (0.70-1.30); GLOMERULAR FILTRATION RATE 37.2 (>42); POTASSIUM SERUM 4.6 MEQ/L (3.5-5.1)
[2018-11-27] MEDS ORDERED: DIGOXIN 0.125 MG TAB PO SCH (09:00)
[2018-11-27] MEDS: MULTIVITAMINS/MINERALS THERAP 1 TAB PO SCH (10:33)
[2018-11-27] MEDS: LEVEMIR (INSULIN DETEMIR) 1 UNITS/0.01ML SC SCH (10:33)
[2018-11-27] MEDS: ISOSORBIDE MON. (IMDUR) 60 MG XR TAB PO SCH (10:33)
[2018-11-27] MEDS: ASPIRIN 81 MG ENTERIC TAB PO SCH (10:33)
[2018-11-27] MEDS: DULoxetine 30 MG CAP (CYMBALTA) PO SCH (10:33)
[2018-11-27] MEDS: GABAPENTIN 300 MG CAP PO SCH (10:33)
[2018-11-27] MEDS: HumaLOG INSULIN (NovoLOG) PER UNIT SC SCH ×2 (10:33→12:35)
[2018-11-27] MEDS: OMEPRAZOLE 20 MG CAP PO SCH (10:33)
[2018-11-27 11:36] VITALS: BP 144/79
[2018-11-27] MEDS: PROPRANOLOL 60 MG LA CAP PO SCH (11:36)
[2018-11-27] MEDS ORDERED: DIGO0.12 PO (12:11)
[2018-11-27] MEDS ORDERED: INDE60CA4 PO (12:11)
--- NOTE | 2018-12-20 14:25 | DS.PDOC ---
Discharge Summary General Date of Admission Nov 24, 2018 at 22:01 Date of Discharge 11/27/18 Attending Physician: LEIGH TRAORE MD Discharge Summary PROCEDURES PERFORMED DURING STAY: 11/25/18 ECHO: 1. Technically limited study due to poor acoustic window. 2. Moderate global left ventricular systolic dysfunction with diffuse hypokinesis. 3. Aortic valve sclerosis with trace aortic regurgitation but no aortic stenosis. 4. Mitral annulus calcification with mildly enlarged left atrium and only trace mitral regurgitation detected. 5. Mild to moderate tricuspid regurgitation with moderate pulmonary hypertension and dilated right heart chambers. 6. Trace to small pericardial effusion, no evidence of cardiac tamponade. 7. The inferior vena cava was mildly enlarged, central venous pressure might be elevated. 8. This was compared with prior and most recent echocardiogram on 04/20/2018, left ventricular systolic function then was normal. DISCHARGE DIAGNOSES: Atypical chest pain possibly due to tachycardia from uncontrolled A fib Atrial fibrillation with RVR CAD with h/o CABG, stents and prior AMI. Systolic CHF due to Ischemic cardiomyopathy ELISE on CPAP Ckd Cryptogenic cirrhosis with portal hypertension Diabetes with neuropathy GERD. COMPLICATIONS/CHIEF COMPLAINT: Chest Pain. HISTORY OF PRESENT ILLNESS: See history and physical HOSPITAL COURSE: This is a 78-year-old male with past medical history significa nt for cryptogenic cirrhosis with portal hypertension, esophageal varices, status post ablation every 2 months previously followed with EGD every [address] 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 In April he again had chest pains so was sent to [facility]. There he was told that 2 of his stents were hampering the blood flow in one of his major arteries and they tried to take it out but could not. He also has chronic kidney disease (CKD), obstructive sleep apnea (ELISE) on continuous positive airway pressure (CPAP), most recent non-ST elevation myocardial infarction May 15, 2018 for which he was treated medically and was not sent out to [facility], type 2 diabetes, chronic obstructive pulmonary disease (COPD), gastroesophageal reflux disease , h/o prostate cancer and obstructive uropathy presents to the emergency room with left parasternal chest pain for about 4 hours. He attempted to use three nitroglycerin; however, the chest pain did not relieve. It is nonradiating, 6- 8/10 in severity. It is a pressure-like chest pain. The patient denies any heavy recent lifting. He denies any symptoms of acid reflux. He denies any diaphoresis, nausea, vomiting, shortness of breath. He does endorse subjective palpitations from time to time. In the emergency room, his heart rate was in the low 100s. He states he recently saw his sales and customer relations rep, Dr. Ring who wanted to increase his propranolol for better rate control of his atrial fibrillation (AFib) as his heart rate in the office was noted to be 112. He was admitted for work up of atypical chest pain. Atypical chest pain No elevation of troponins and no dynamic EKG changes could be related to tachycardia from uncontrolled afib propranolol dosage increased CAD with prior AMIs, cabg and stents continue ASA, betablocker, statin Afib with RVR for rate control. propranolol dosage increased. However rate still not adequately controlled. will start on digoxin. 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 before his EF was normal before in 2018. appears euvolemic at present will place on fluid restriction but does not need any diuretic at this point. will consider spironolactone. CKD stage 3 to 4 creatinine at baseline will continue to monitor. continue calcitriol ELISE on CPAP continue Cryptogenic cirrhosis with portal hypertension continue propanolol lactulose prn Diabetes with neuropathy continue levemir and lispro, gabapentin, cymbalta GERD continue omeprazole DISCHARGE MEDICATIONS: Please see below. ALLERGIES: Please see below. PHYSICAL EXAMINATION ON DISCHARGE: VITAL SIGNS: Please see below. General: He is well nourished, in no apparent distress. Head is normocephalic, atraumatic. Eyes: Extraocular movements are intact. Pupils equal, round, reactive to light. Neck is supple. No jugular venous pressure (JVP). Lungs: There are some basalar crackles. No wheezing. Cardiovascular: Irregularly irregular rhythm. No murmurs, gallops, or rubs. Abdomen: Soft, nontender, nondistended, positive bowel sounds. No rebound or guarding. Extremities: No pitting edema or calf tenderness. Neurological: Alert and oriented (A and O) times three. Neurological: No focal deficits appreciated on examination. LABORATORY DATA: Please see below. ACTIVITY: [As tolerated]. DIET: Consistent carb diet DISPOSITION: 01 Home, Self-Care. DISCHARGE INSTRUCTIONS: PMD in [address] Ring in 3 to 4 weeks Digoxin level on 11/29/18 ITEMS TO FOLLOWUP ON ON OUTPATIENT: Digoxin level DISCHARGE CONDITION: [Stable]. TIME SPENT ON DISCHARGE: Greater than 30 minutes. Vital Signs/I&Os Vital Signs Label Value Date Time Patient Temperature 97.7 degrees F 11/27/18 06 Temperature Source Temporal 11/27/18 06 Pulse 88 11/27/18 06 Respiratory Rate 18 bpm 11/27/18599 Blood Pressure Assessment 144/79 (100) 11/27/18 06 Bedside Pulse Oximetry 92 % 11/27/18599 Laboratory Data CBC/BMP Item Value Date Time White Blood Count 6.0 10^3/uL 11/27/18 0535 Red Blood Count 3.36 10^6/uL L 11/27/18 0535 Hemoglobin 10.5 g/dl L 11/27/18 0535 Hematocrit 32.2 % L 11/27/18 0535 Mean Corpuscular Volume 95.8 fl 11/27/18 0535 Mean Corpuscular Hemoglobin 31.3 pg 11/27/18 0535 Red Cell Distribution Width 14.0 % 11/27/18 0535 Platelet Count 110 10^3/uL L 11/27/18 0535 Sodium Level 141 MEQ/L 11/27/18 0535 Potassium Level 4.6 MEQ/L 11/27/18 0535 Chloride Level 112 MEQ/L H 11/27/18 0535 Anion Gap 7 MEQ/L L 11/27/18 0535 Carbon Dioxide Level 22 MEQ/L 11/27/18 0535 Blood Urea Nitrogen 44 MG/DL H 11/27/18 0535 Creatinine 1.88 MG/DL H 11/27/18 0535 Glomerular Filtration Rate 37.2 L 11/27/18 0535 Fasting Glucose 161 MG/DL H 11/27/18 0535 Calcium Level 8.6 MG/DL L 11/27/18 0535 Total Bilirubin 0.6 MG/DL 11/24/181914 Direct Bilirubin 0.2 MG/DL 11/24/181914 Aspartate Amino Transf (AST/SGOT) 45 U/L H 11/24/181914 Alanine Aminotransferase (ALT/SGPT) 65 U/L 11/24/181914 Alkaline Phosphatase 101 U/L 11/24/181914 Creatine Kinase MB 2.0 NG/ML 11/24/181914 Total Creatine Kinase 43 U/L 11/24/181914 Creatine Kinase MB Relative Index 4.65 H 11/24/181914 Troponin I 0.02 NG/ML 11/24/181914 Total Protein 8.0 GM/DL 11/24/181914 Albumin 3.5 GM/DL 11/24/181914 Albumin/Globulin Ratio 0.78 L 11/24/181914 Lipase 173 U/L 11/24/181914 Thyroid Stimulating Hormone (TSH) 4.120 uIU/ML H 11/24/181914 Free Thyroxine 0.99 NG/DL 11/24/181914 Troponin I 0.03 NG/ML # 11/25/185 Troponin I 0.02 NG/ML # 11/25/18 0528 Discharge Medications Scheduled Aspirin (Aspirin EC) 81 Mg Tabec, 81 MG PO DAILY, (Reported) Atorvastatin Calcium (Atorvastatin Calcium) 80 Mg Tab, 80 MG PO QHS, (Reported) Calcitriol (Calcitriol) 0.25 Mcg Cap, 0.25 MCG PO 3XW, (Reported) WEDNESDAY, WEDNESDAY AND WEDNESDAY MORNINGS Digoxin (Digoxin) 125 Mcg Tab, 62.5 MCG PO DAILY take 1/2 tab daily Duloxetine Hcl (Duloxetine HCl) 30 Mg Cap, 30 MG PO DAILY, (Reported) Ergocalciferol (Vitamin D2) (Drisdol) 50,000 Unit Cap, 50,000 UNIT PO ASDIRE CTED, (Reported) TAKES ON AND OF THE MONTH Gabapentin (Neurontin) 600 Mg Tab, 600 MG PO TID, (Reported) Insulin Aspart (Novolog Flexpen) 100 Unit/Ml Inj, 1 DOSE SC AC, (Reported) PER SLIDING SCALE Insulin Glargine (Lantus) 100 Unit/Ml Inj, 50 UNIT SC BID, (Reported) Isosorbide Mononitrate (Isosorbide Mononitrate ER) 60 Mg Tab, 60 MG PO DAILY, (Reported) Mirabegron (Myrbetriq) 50 Mg Tab, 50 MG PO DAILY, (Reported) Multivitamins (Thera M Plus Tablet) 1 Tab Tab, 1 TAB PO DAILY, (Reported) Omeprazole (Omeprazole) 20 Mg Cap, 20 MG PO BID, (Reported) Propranolol Hcl (Inderal LA) 60 Mg Cap, 120 MG PO BID Scheduled PRN Acetaminophen (Acetaminophen) 500 Mg Tab, 1,000 MG PO Q6H PRN for PAIN, (Reported) Nitroglycerin (Nitrostat) 0.4 Mg Subl, 0.4 MG SL NITRO PRN for CHEST PAIN, (Reported) Allergies Coded Allergies: No Known Allergies (Unverified , 06/17/18) LEIGH TRAORE MD Dec 20, 2018 14:25
== END 2018-11-27 13:59 | disposition home or self-care (01) | DRG 309 ==
LOC: M ED 18:58 → EDBD 18:58 → M ED INP 22:01 → M MSPAV 11-25 16:02
PROVIDERS: ADMIT Internal Medicine; ATTEND Internal Medicine Nephrology
DX: I48.91 Unspecified atrial fibrillation (principal); I50.20 Unspecified systolic (congestive) heart failure; N18.4 Chronic kidney disease, stage 4 (severe); I85.10 Secondary esophageal varices without bleeding; I27.20 Pulmonary hypertension, unspecified; I36.0 Nonrheumatic tricuspid (valve) stenosis; I25.10 Atherosclerotic heart disease of native coronary artery without angina pectoris; Z95.2 Presence of prosthetic heart valve; Z95.1 Presence of aortocoronary bypass graft; I25.2 Old myocardial infarction; G47.33 Obstructive sleep apnea (adult) (pediatric); E11.40 Type 2 diabetes mellitus with diabetic neuropathy, unspecified; K21.9 Gastro-esophageal reflux disease without esophagitis; K74.69 Other cirrhosis of liver; I25.5 Ischemic cardiomyopathy; Z85.46 Personal history of malignant neoplasm of prostate; J44.9 Chronic obstructive pulmonary disease, unspecified; E11.21 Type 2 diabetes mellitus with diabetic nephropathy

== ENCOUNTER → 2018-11-30 | Outpatient (CLI) | payer MEDICARE ==
[~2018-11-30] MED LIST changes: -ASPI-1 PO; -ASPI-255 PO; +ASPI1TAB PO; +ASPI325T PO; +ASPI325T25 PO; -ASPI81TA26 PO; +CALC1CAP31 PO; +DIGO0.12 PO; +DULO30CA PO; -DULO30CA9 PO; -FENT50DI33 TD; +FENT50PA TD; +INDE60CA4 PO; -METO1TAB63 PO; +METO25TAB PO; +NORC1TAB4 PO; -NORC1TAB7 PO; -TRAZ1TAB6 PO; +TRAZ25TA PO
== END ==
LOC: M WUC 09:39
PROVIDERS: ATTEND Internal Medicine
DX: I48.91 Unspecified atrial fibrillation (principal)